=== PATIENT | male | born 1970 | race Caucasian/White ===

== ENCOUNTER 2023-01-02 03:11 | Inpatient (IN) | payer OTHER ==
[2023-01-02] MEDS ORDERED: DIAZEPAM 10 MG/2 ML INJ SYRINGE ONE ×2 (03:41→04:25)
[2023-01-02] MEDS ORDERED: NA CHLORIDE 0.9% 1,000 ML ONE (03:42)
[2023-01-02 04:03] LABS: MCV 93.7 fL (80-100); MPV 7.9 fL (7.6-11.3)
[2023-01-02 04:16] LABS: ALT/SGPT 88 U/L (16-61); AST/SGOT 101 U/L (15-37); Albumin 3.7 g/dL (3.4-5.0); Alkaline Phosphatase 78 U/L (45-117); Bicarbonate 22 mEq/L (21-32); Bilirubin Direct 0.4 mg/dL (0-0.2); Bilirubin Total 1.2 mg/dL (0.2-1.0); Glomerular Filtration Rate 110 ml/min (=/>90); Glucose Level 114 mg/dL (74-106); Magnesium 2.2 mg/dL (1.6-2.4); NT PRO-BNP 17 pg/mL (<125); Potassium 3.5 mEq/L (3.5-5.1); Protein, Total 8.1 g/dL (6.4-8.2); Sodium Level 131 mEq/L (136-145); Troponin High Sensitivity 3.9 pg/mL (<58.9)
[2023-01-02 04:18] LABS: BUN Blood Urea Nitrogen < 3 mg/dL (7-18)
[2023-01-02] MEDS ORDERED: ONDANSETRON 4 MG/2 ML VIAL ONE ×2 (05:37→08:28)
[2023-01-02] MEDS ORDERED: LORazepam 2 MG/ML VIAL ONE ×3 (05:37→10:28)
--- NOTE | 2023-01-02 05:49 | P.HP ---
Certification for Inpatient Patient admitted to: Observation With expected LOS: <2 Midnights Patient will require the following post-hospital care: None Practitioner: I am a practitioner with admitting privileges, knowledge of patient current condition, hospital course, and medical plan of care. Services: Services provided to patient in accordance with Admission requirements found in Title 42 Section 412.3 of the Code of Federal Regulations Patient History Date of Service: 01/03/23 Reason for admission: Benzo Withdrawal, Chest Pain History of Present Illness: Patient is a 52 year old male with past medical history of anxiety and alcohol abuse who presented to the emergency department with complaints of chest pain, anxiety, shaking, nausea, headache, tingling in extremities. he states that he has been out of his clonnazepam for 5 days now. Workup was negative from a cardiac stand point. Labs significant for sodium 131, chloride 96, tbili 1.2, AST 101, ALT 88, serum alcohol 139. In the emergency department, he received 5 mg IV diazepam x 2, 1L fluid, zofran, and 1 mg ativan. ED provider wishes to admit patient for further management. Allergies paroxetine [From Paxil] Adverse Reaction (Verified 01/02/23 08:18) Itching sertraline [From Zoloft] Adverse Reaction (Verified 01/02/23 08:18) Itching Home Medications: clonazePAM [Clonazepam] 1 mg PO BID 01/02/23 - Past Medical/Surgical History Diabetic: No -: Anxiety -: Alcohol Abuse Past Surgical History: Patient denies surgical history Psychosocial/ Personal History: Patient is . - Family History Family History: Reviewed- Non-Contributory - Social History Smoking Status: Current some day smoker (chewing tobacco) Alcohol use: Yes CD- Drugs: No Caffeine use: Yes Place of Residence: Home Review of Systems General: Other (shaking, tinging) Cardiovascular: Chest Pain Gastrointestinal: Nausea Physical Examination - Vital Signs Temperature: 98.7 F Blood Pressure: 137/84 Pulse: 73 Respirations: 18 Pulse Ox (%): 96 - Physical Exam General: Alert, In no apparent distress HEENT: Atraumatic, PERRLA, Sclerae nonicteric Neck: Supple, 2+ carotid pulse no bruit Respiratory: Clear to auscultation bilaterally, Normal air movement Cardiovascular: Regular rate/rhythm, Normal S1 S2 Gastrointestinal: Normal bowel sounds, No tenderness Musculoskeletal: No tenderness Integumentary: No rashes Neurological: Normal speech, Normal affect - Studies Laboratory Data (last 24 hrs) 01/02/23 03:45: WBC 7.60, Hgb 15.3, Hct 45.0, Plt Count 188 01/02/23 03:45: Sodium 131 L, Potassium 3.5, BUN < 3 L, Creatinine 0.71, Glucose 114 H, Magnesium 2.2, Total Bilirubin 1.2 H, AST 101 H, ALT 88 H, Alkaline Phosphatase 78 Assessment and Plan - Problems (Diagnosis) (1) Chest pain Current Visit: Yes Status: Acute Qualifiers: Chest pain type: unspecified Qualified Code(s): R07.9 - Chest pain, unspecified (2) Benzodiazepine withdrawal Current Visit: Yes Status: Acute Qualifiers: Complication of substance-induced condition: uncomplicated Qualified Code(s): F13.930 - Sedative, hypnotic or anxiolytic use, unspecified with withdrawal, uncomplicated (3) Alcohol abuse Current Visit: Yes Status: Chronic - Plan Patient is admitted for further management of chest pain & benzodiazapine withdrawal. Trend serial cardiac enzymes. Consult cardiology. He is a daily drinker and currently has elevated serum alcohol. CIWA protocol in place. IV hydration. Antiemetics as needed. Monitor and replete electrolytes per protocol. Discharge Plan: Home Plan to discharge in: 24 Hours - Advance Directives Does patient have a Living Will: No Does patient have a Durable POA for Healthcare: No - Code Status/Comfort Care Code Status Assessed: Yes Code Status: Full Code Physician Review: Patient Assessed, Agree with Above Assessment and Plan Critical Care: No Time Spent Managing Pts Care (In Minutes): 50
[2023-01-02 06:27] LABS: SARS-COV-2 RT PCR NEGATIVE (NEGATIVE)
[2023-01-02] MEDS ORDERED: ACETAMINOPHEN 500 MG TAB PO PRN (06:30)
[2023-01-02] MEDS: LORazepam 2 MG/ML VIAL IV PRN ×3 (08:00→13:37)
[2023-01-02] MEDS: ONDANSETRON 4 MG/2 ML VIAL IV PRN ×3 (08:00→20:16)
[2023-01-02 08:14] VITALS: BMI 30.7
--- NOTE | 2023-01-02 08:46 | ER ---
Nurse's Notes [facility] Name: Joe Campo Age: 52 yrs Sex: Male : 1970 Arrival Date: 01/02/2023 Time: 03:25 Bed 6 Private MD: Diagnosis: Underdosing of benzodiazepines, initial encounter-Withdrawal;Chest pain, unspecified;Nausea Presentation: 01/02 03:26 Chief complaint: EMS states: "We were called out for chest pain and tingling of left vc1 arm and left leg. He was standing out front when we arrived and said he has been out of clonazepam for about 5 days.". Coronavirus screen: Vaccine status: Patient reports being unvaccinated. Client denies travel out of the [place] in the last 14 days. At this time, the client does not indicate any symptoms associated with coronavirus-19. Ebola Screen: Patient negative for fever greater than or equal to 101.5 degrees Fahrenheit, and additional compatible Ebola Virus Disease symptoms Patient denies exposure to infectious person. Patient denies travel to an Ebola-affected area in the 21 days before illness onset. No symptoms or risks identified at this time. Initial Sepsis Screen: Does the patient meet any 2 criteria? No. Patient's initial sepsis screen is negative. Does the patient have a suspected source of infection? No. Patient's initial sepsis screen is negative. Risk Assessment: Do you want to hurt yourself or someone else? Patient reports no desire to harm self or others. Onset of symptoms is unknown. 03:26 Method Of Arrival: EMS: [facility] vc1 03:26 Acuity: EMILY 3 vc1 Triage Assessment: 03:31 General: Appears in no apparent distress. uncomfortable, Behavior is cooperative, vc1 anxious, restless. Pain: Complains of pain in chest Pain does not radiate. Pain currently is 8 out of 10 on a pain scale. EENT: No deficits noted. No signs and/or symptoms were reported regarding the EENT system. Neuro: Kendrick Agitation-Sedation Scale (RASS): +1 Restless Level of Consciousness is awake, alert, obeys commands, Oriented to person, place, time, situation, Appropriate for age. Cardiovascular: Reports chest pain, lightheadedness, nausea, Chest pain is described as mild, quality is sharp. Respiratory: Airway is patent Respiratory effort is even, unlabored, Respiratory pattern is regular, symmetrical. GI: Reports nausea. : No deficits noted. No signs and/or symptoms were reported regarding the genitourinary system. Derm: No deficits noted. No signs and/or symptoms reported regarding the dermatologic system. Musculoskeletal: No deficits noted. No signs and/or symptoms reported regarding the musculoskeletal system. Historical: - Allergies: 03:29 Paxil; vc1 03:29 Zoloft; vc1 - Home Meds: 03:29 clonazepam 1 mg oral tablet 2 times per day [Active]; vc1 - PMHx: 03:29 Anxiety; vc1 - PSHx: 03:29 None; vc1 - Immunization history:: Client reports having NOT received the Covid vaccine. - Social history:: Smoking status: Patient reports use of chewing tobacco. - Family history:: not pertinent. - Hospitalizations: : No recent hospitalization is reported. Screenin:32 [facility] ED Fall Risk Assessment (Adult) History of falling in the last 3 months, vc1 including since admission No falls in past 3 months (0 pts) Confusion or Disorientation No (0 pts) Intoxicated or Sedated No (0 pts) Impaired Gait No (0 pts) Mobility Assist Device Used No (0 pt) Altered Elimination No (0 pt) Score/Fall Risk Level 0 - 2 = Low Risk Oriented to surroundings, Maintained a safe environment, Educated pt \\T\\ family on fall prevention, incl call for assistance when getting out of bed. Abuse screen: Denies threats or abuse. Nutritional screening: No deficits noted. Tuberculosis screening: No symptoms or risk factors identified. Assessment: 03:33 Pain: Pain began gradually, 4 hours ago. vc1 04:48 Reassessment: Patient and/or family updated on plan of care and expected duration. Pain vc1 level reassessed. Patient is alert, oriented x 3, equal unlabored respirations, skin warm/dry/pink. Patient states feeling better. Patient states symptoms have improved. 05:30 Reassessment: Patient and/or family updated on plan of care and expected duration. Pain ha1 level reassessed. Patient is alert, oriented x 3, equal unlabored respirations, skin warm/dry/pink. Patient states feeling better. Patient states symptoms have improved. Vital Signs: 03:26 BP 171 / 88; Pulse 85; Resp 15; Temp 98.7; Pulse Ox 100% ; Weight 99.79 kg; Height 5 vc1 ft. 11 in. ; Pain 8/10; 04:45 BP 148 / 78; Pulse 75; Resp 16; Pulse Ox 96% ; vc1 05:30 BP 137 / 84; Pulse 73; Resp 18 S; Pulse Ox 96% on R/A; ha1 03:26 Body Mass Index 30.68 (99.79 kg, 180.34 cm) vc1 03:26 Pain Scale: Adult vc1 ED Course: 03:25 Patient arrived in ED. es 03:26 Reynaldo Bermudez MD is Attending Physician. rn 03:26 EKG done, by door technician. reviewed by Reynaldo Bermudez MD. oe 03:29 Triage completed. vc1 03:32 Arm band placed on right wrist. vc1 03:33 Patient maintains SpO2 saturation greater than 95% on room air. vc1 03:33 Patient has correct armband on for positive identification. Bed in low position. Call vc1 light in reach. Side rails up X 1. Client placed on continuous cardiac and pulse oximetry monitoring. NIBP monitoring applied. 03:34 Nicki Pulido, BELLO is Primary Nurse. vc1 05:14 Gianni Alvarado is Hospitalizing Provider. rn 07:46 Primary Nurse role handed off by Nicki Pulido RN bp 07:46 Aleksandar Pierre, RN is Primary Nurse. bp 09:00 Chest Single View In Process Unspecified. EDMS 09:01 Head Brain Wo Cont In Process Unspecified. EDMS Administered Medications: 03:40 Drug: Diazepam IVP 5 mg Route: IVP; Site: right antecubital; vc1 03:42 Drug: NS 0.9% IV 1000 ml Route: IV; Rate: 1000 ml; Site: right antecubital; vc1 04:23 Drug: Diazepam IVP 5 mg Route: IVP; Site: right antecubital; ha1 05:30 Drug: Ondansetron IVP 4 mg Route: IVP; Site: right antecubital; ha1 05:34 Drug: Ativan IVP 1 mg Route: IVP; Site: right antecubital; ha1 Medication: 03:33 VIS not applicable for this client. vc1 Outcome: 05:15 Decision to Hospitalize by Provider. rn 13:24 Patient left the ED. bp Signatures: Dispatcher [employer] Darlene Richter Roman, MD MD rn Ines, Aleksandar Gonzalez RN RN Nicki Tidwell RN RN vc1 Loida Daniel, RN RN ha1
--- NOTE | 2023-01-02 08:46 | EDPHYS ---
Physician Documentation [facility] Name: Joe Campo Age: 52 yrs Sex: Male : 1970 Arrival Date: 01/02/2023 Time: 03:25 Bed 6 Private MD: ED Physician Reynaldo Bermudez HPI: 01/02 04:39 This 52 yrs old Male presents to ER via EMS with complaints of Chest Pain > rn 30 y/o, anxiety. 04:39 Pt reports out of clonazepam for 5 days, for last 2-3 days has been having chest pain, rn anxiety, shaking, nausea, tingling in hands and legs, + headache. Took "something from a friend" but didn't help. Has never stopped his clonazepam like this. Also daily drinker, but still drinking.. Onset: The symptoms/episode began/occurred 3 day(s) ago. Severity of symptoms: At their worst the symptoms were moderate in the emergency department the symptoms are unchanged. The patient has not experienced similar symptoms in the past. The patient has not recently seen a physician. Historical: - Allergies: 03:29 Paxil; vc1 03:29 Zoloft; vc1 - Home Meds: 03:29 clonazepam 1 mg oral tablet 2 times per day [Active]; vc1 - PMHx: 03:29 Anxiety; vc1 - PSHx: 03:29 None; vc1 - Immunization history:: Client reports having NOT received the Covid vaccine. - Social history:: Smoking status: Patient reports use of chewing tobacco. - Family history:: not pertinent. - Hospitalizations: : No recent hospitalization is reported. ROS: 04:39 Constitutional: Negative for fever, chills, and weight loss, Eyes: Negative for injury, rn pain, redness, and discharge, Cardiovascular: Negative for palpitations, and edema, Respiratory: Negative for shortness of breath, cough, wheezing, and pleuritic chest pain, Abdomen/GI: Negative for abdominal pain, diarrhea, and constipation, Back: Negative for injury and pain, MS/Extremity: Negative for injury and deformity, Skin: Negative for injury, rash, and discoloration, Neuro: Negative for seizure Exam: 04:39 Constitutional: This is a well developed, well nourished patient who is awake, alert, rn and in no acute distress. Head/Face: Normocephalic, atraumatic. Eyes: Pupils equal round and reactive to light, extra-ocular motions intact. ENT: dry MM Cardiovascular: Regular rate and rhythm. No pulse deficits. Respiratory: No increased work of breathing, no retractions or nasal flaring. Abdomen/GI: Soft, non-tender Skin: Warm, dry MS/ Extremity: Pulses equal, no cyanosis Neuro: Awake and alert, GCS 15, oriented to person, place, time, and situation. Cranial nerves II-XII grossly intact. Motor strength 4/5 in all extremities. Sensory grossly intact. Cerebellar exam normal. + coarse tremor bilateral arms/hands. 06:42 ECG was reviewed by the Attending Physician. rn Vital Signs: 03:26 BP 171 / 88; Pulse 85; Resp 15; Temp 98.7; Pulse Ox 100% ; Weight 99.79 kg; Height 5 vc1 ft. 11 in. ; Pain 8/10; 04:45 BP 148 / 78; Pulse 75; Resp 16; Pulse Ox 96% ; vc1 05:30 BP 137 / 84; Pulse 73; Resp 18 S; Pulse Ox 96% on R/A; ha1 03:26 Body Mass Index 30.68 (99.79 kg, 180.34 cm) vc1 03:26 Pain Scale: Adult vc1 MDM: 03:26 Patient medically screened. rn 05:12 Differential Diagnosis chest pain, CAD, NSTEMI, anxiety, ETOH withdrawal, Benzo rn withdrawal, dehydration. Data reviewed: vital signs, nurses notes, lab test result(s), EKG, radiologic studies, CT scan, plain films, and as a result, I will admit patient. Consideration of Admission/Observation Patient was admitted/placed on observation. Escalation of care including admission/observation considered. Management of patient was discussed with the following: Hospitalist: . Independent interpretation of the following test(s) in the Emergency Department EKG: See my EKG interpretation above X-Ray: My interpretation is CXR images neg for pneumothorax or lobar pneumonia per my interpretation. Counseling: I had a detailed discussion with the patient and/or guardian regarding: the historical points, exam findings, and any diagnostic results supporting the discharge/admit diagnosis, lab results, radiology results, the need for further work-up and treatment in the hospital. Response to treatment: the patient's symptoms have mildly improved after treatment, and as a result, I will admit patient. 01/02 03:26 Order name: Basic Metabolic Panel rn 01/02 03:26 Order name: CBC with Diff rn 01/02 03:26 Order name: LFT's rn 01/02 03:26 Order name: Magnesium rn 01/02 03:26 Order name: NT PRO-BNP rn 01/02 03:26 Order name: Troponin HS rn 01/02 03:26 Order name: ETOH Level rn 01/02 05:12 Order name: COVID-19/FLU A+B rn 01/02 08:27 Order name: CBC with Automated Diff EDMS 01/02 08:27 Order name: Alcohol Serum/Plasma EDMS 01/02 08:27 Order name: Basic Metabolic Panel EDMS 01/02 08:27 Order name: Liver (Hepatic) Function EDMS 01/02 08:27 Order name: Troponin High Sensitivity EDMS 01/02 08:27 Order name: NT PRO-BNP EDMS 01/02 08:27 Order name: Magnesium EDMS 01/02 08:28 Order name: COVID-19/FLU A+B EDMS 01/02 11:28 Order name: Creatine Phosphokinase; Complete Time: 02:28 EDMS 01/02 11:28 Order name: Lipid Profile; Complete Time: 02:28 EDMS 01/02 03:26 Order name: XRAY Chest (1 view) rn 01/02 03:27 Order name: CT Head Brain wo Cont rn 01/02 09:00 Order name: Chest Single View; Complete Time: 02:28 EDMS 01/02 09:00 Order name: Head Brain Wo Cont; Complete Time: 02:28 EDMS 01/02 03:26 Order name: EKG; Complete Time: 08:28 rn 01/02 03:26 Order name: Cardiac monitoring; Complete Time: 03:27 rn 01/02 03:26 Order name: EKG - Nurse/Tech; Complete Time: 03:27 rn 01/02 03:26 Order name: IV Saline Lock; Complete Time: 03:45 rn 01/02 03:26 Order name: Labs collected and sent; Complete Time: 03:45 rn 01/02 03:26 Order name: O2 Per Protocol; Complete Time: 03:34 rn 01/02 03:26 Order name: O2 Sat Monitoring; Complete Time: 03:34 rn EC:42 Rate is 80 beats/min. Rhythm is regular. QRS Ralph is Normal. GA interval is normal. QRS rn interval is normal. QT interval is normal. No Q waves. T waves are Normal. No ST changes noted. Clinical impression: NSR w/ Non-specific ST/T Changes. Interpreted by me. Reviewed by me. Administered Medications: 03:40 Drug: Diazepam IVP 5 mg Route: IVP; Site: right antecubital; vc1 03:42 Drug: NS 0.9% IV 1000 ml Route: IV; Rate: 1000 ml; Site: right antecubital; vc1 04:23 Drug: Diazepam IVP 5 mg Route: IVP; Site: right antecubital; ha1 05:30 Drug: Ondansetron IVP 4 mg Route: IVP; Site: right antecubital; ha1 05:34 Drug: Ativan IVP 1 mg Route: IVP; Site: right antecubital; ha1 Disposition Summary: 01/02/23 05:15 Hospitalization Ordered Hospitalization Status: Observation rn Provider: Gianni Alvarado rn Condition: Stable rn Problem: new rn Symptoms: have improved rn Bed/Room Type: Standard rn Location: Telemetry/MedSurg (observation)(01/02/23 11:52) dw Room Assignment: [facility](01/02/23 11:52) Diagnosis - Underdosing of benzodiazepines, initial encounter - Withdrawal rn - Chest pain, unspecified rn - Nausea rn Forms: - Medication Reconciliation Form rn - SBAR form rn Signatures: Dispatcher [employer] Deborah Diego RN RN Reynaldo Trevino MD MD rn Garcia, Cindy RN RN Nicki Pulido RN RN vc1 Loida Daniel, RN RN ha1 Toshia Domínguez PA-C PADevorah sb4 Corrections: (The following items were deleted from the chart) 06:08 05:15 Telemetry/MedSurg (observation) rn cg 06:08 05:15 rn cg 11:52 06:08 [facility] ER HOLD cg dw 11:52 06:08 ERHOLD- cg dw
[2023-01-02] MEDS ORDERED: ENOXAPARIN 40 MG/0.4 ML SQ ONE (10:17)
--- NOTE | 2023-01-02 12:13 | EKG ---
Test Date: 2023-01-02 Test Time: 03:19:40 Printmaker: RAFI MEASUREMENT RESULTS: Intervals: Rate: 80 MS: 170 QRSD: 80 QT: 400 QTc: 461 [place]: P: 37 MS: 170 QRS: 34 T: 67 INTERPRETIVE STATEMENTS: Normal sinus rhythm Nonspecific T wave abnormality Prolonged QT Compared to ECG 12/25/2005 20:17:11 T-wave abnormality now present Prolonged QT interval now present Electronically Signed On 01-02-23 12:12:36 CDT by Kavin Costa
[2023-01-02] MEDS: ENOXAPARIN 40 MG/0.4 ML SQ SCH (13:30)
[2023-01-02] MEDS ORDERED: LORazepam 2 MG/ML VIAL IV PRN ×2 (15:21)
[2023-01-02] MEDS ORDERED: HALOPERIDOL LACT 5 MG/ML INJ IM PRN (15:21)
[2023-01-02] MEDS ORDERED: FLUMAZENIL 0.1 MG/ML (5 mL VIAL) IV PRN (15:21)
--- NOTE | 2023-01-02 15:24 | P.PN ---
Date of Service: 01/02/23 Patient seen and examined. He is complaining of nausea and retching. He is also complaining of tremors. Noted to be tachycardic on the electronic device monitor. Patient is likely withdrawing from alcohol. Plan: Continue CIWA IV hydration Antiemetics as needed.
--- NOTE | 2023-01-02 16:13 | RAD REPORT ---
EXAM DESCRIPTION: CT - Head Brain Wo Cont - 01/02/2023 5:54 am CLINICAL HISTORY: The patient is 52 years old and is Male; LIGHTHEADED, NAUSEA TECHNIQUE: Axial computed tomography images of the head/brain without intravenous contrast. Sagitt al and coronal reformatted images were created and reviewed. This CT exam was performed using one o r more of the following dose reduction techniques: automated exposure control, adjustment of the mA and/or kV according to patient size, and/or use of iterative reconstruction technique. COMPARISON: No relevant prior studies available. FINDINGS: Brain: Unremarkable. No hemorrhage. No significant white matter disease. No edema. Ventricles: Unremarkable. No ventriculomegaly. Bones/joints: Unremarkable. No acute fracture. Soft tissues: Unremarkable. Sinuses: Unremarkable as visualized. Mastoid air cells: Unremarkable as visualized. No mastoid effusion. IMPRESSION: No acute intracranial abnormality. Electronically signed by: Osvaldo Carroll MD 01/02/2023 4:36 AM CDT Due to temporary technical issues with the PACS/Fluency reporting system, reports are being signed by the in house radiologists without review as a courtesy to insure prompt reporting. The interpreting radiologist is fully responsible for the content of the report.
[2023-01-02] MEDS: LORazepam 2 MG/ML VIAL IV SCH ×3 (16:19→23:45)
--- NOTE | 2023-01-02 16:27 | RAD REPORT ---
EXAM DESCRIPTION: RAD - Chest Single View - 01/02/2023 4:10 am CLINICAL HISTORY: The patient is 52 years old and is Male; CHEST PAIN TECHNIQUE: Frontal view of the chest. COMPARISON: No relevant prior studies available. FINDINGS: Lungs: Mildly prominent interstitial markings. Pleural space: Left hemidiaphragm is obscured which can be seen with left pleural effusion, as w ell as left lower lobe consolidation or atelectasis. Blunting of the left costophrenic angle which may indicate left pleural effusion. No pneumothorax. Heart: Unremarkable. Mediastinum: Unremarkable. Bones/joints: Unremarkable. IMPRESSION: 1. Mildly prominent interstitial markings. 2. Left hemidiaphragm is obscured which can be seen with left pleural effusion, as well as left low er lobe consolidation or atelectasis. 3. Blunting of the left costophrenic angle which may indicate left pleural effusion. Electronically signed by: Osvaldo Carroll MD 01/02/2023 4:22 AM CDT Due to temporary technical issues with the PACS/Fluency reporting system, reports are being signed by the in house radiologists without review as a courtesy to insure prompt reporting. The interpreting radiologist is fully responsible for the content of the report.
[2023-01-03] MEDS: ONDANSETRON 4 MG/2 ML VIAL IV PRN ×3 (03:32→20:33)
[2023-01-03] MEDS: LORazepam 2 MG/ML VIAL IV SCH ×5 (03:33→20:35)
[2023-01-03 05:59] LABS: Absolute Lymphocytes (CBC) 1.9 K/uL (0.7-4.9); Hematocrit 43.5 % (39.6-49.0); Lymphocytes % 21.5 % (15.3-44.8); MPV 7.9 fL (7.6-11.3); RBC Red Blood Cell Count 4.58 M/uL (4.33-5.43)
[2023-01-03 06:15] LABS: Magnesium 2.3 mg/dL (1.6-2.4); Phosphorus 3.2 mg/dL (2.5-4.9); Potassium 3.9 mEq/L (3.5-5.1)
[2023-01-03] MEDS: ENOXAPARIN 40 MG/0.4 ML SQ SCH (07:47)
[2023-01-03] MEDS: FOLIC ACID 1 MG, MULTIVITAMINS INJ 10 ML, THIAMINE HCL 100 MG in NA CHLORIDE 0.9% 1,000 ML IV SCH (08:38)
[2023-01-03] MEDS ORDERED: POTASSIUM CL SA 10 MEQ TAB PO ONE (09:00)
--- NOTE | 2023-01-03 13:35 | P.PN ---
Subjective Date of Service: 01/03/23 Chief Complaint: Benzo Withdrawal, Chest Pain Patient is complaining of intermittent nausea and vomiting. He also reports some jerking movement last night. No witnessed seizures. Physical Examination - Vital Signs Temperature: 97.7 F Blood Pressure: 140/85 Pulse: 79 Respirations: 18 Pulse Ox (%): 96 Assessment And Plan - Current Problems (Diagnosis) (1) Alcohol withdrawal syndrome Current Visit: Yes Status: Acute (2) Chest pain Current Visit: Yes Status: Acute Qualifiers: Chest pain type: unspecified Qualified Code(s): R07.9 - Chest pain, unspecified (3) Hyponatremia Current Visit: Yes Status: Acute - Plan Physical Exam General: Alert, In no apparent distress, obese. HEENT: Atraumatic, PERRLA, Sclerae nonicteric Neck: Supple, no elevated JVD. Respiratory: Clear to auscultation bilaterally, Normal air movement Cardiovascular: Regular rate/rhythm, Normal S1 S2 Gastrointestinal: Normal bowel sounds, No tenderness Musculoskeletal: No tenderness, no tremors Integumentary: No rashes Neurological: Normal speech, Normal affect, no focal motor deficit. Plan: Continue [facility] for alcohol withdrawal. Supportive measures, antiemetics. Neurochecks. IV thiamine and folic acid Troponin negative, no ACS. Sodium level improved. Monitor and optimize electrolytes.
[2023-01-04] MEDS: LORazepam 2 MG/ML VIAL IV SCH ×5 (00:16→12:09)
[2023-01-04] MEDS: LORazepam 2 MG/ML VIAL IV PRN ×4 (02:51→21:00)
[2023-01-04] MEDS: ONDANSETRON 4 MG/2 ML VIAL IV PRN ×3 (04:15→18:43)
[2023-01-04 04:34] LABS: Absolute Lymphocytes (CBC) 1.6 K/uL (0.7-4.9); Hematocrit 42.3 % (39.6-49.0); Lymphocytes % 17.1 % (15.3-44.8); MCV 94.9 fL (80-100); MPV 8.4 fL (7.6-11.3); RBC Red Blood Cell Count 4.46 M/uL (4.33-5.43)
[2023-01-04 04:46] LABS: Potassium 3.5 mEq/L (3.5-5.1)
[2023-01-04] MEDS: ENOXAPARIN 40 MG/0.4 ML SQ SCH (08:11)
[2023-01-04] MEDS ORDERED: POTASSIUM CL SA 10 MEQ TAB PO ONE (09:00)
[2023-01-04] MEDS: FOLIC ACID 1 MG, MULTIVITAMINS INJ 10 ML, THIAMINE HCL 100 MG in NA CHLORIDE 0.9% 1,000 ML IV SCH (09:09)
[2023-01-04 10:06] VITALS: O2SAT 98
--- NOTE | 2023-01-04 13:37 | P.PN ---
Subjective Date of Service: 01/04/23 Chief Complaint: Benzo Withdrawal, Chest Pain Patient is complaining of abdominal discomfort. No tremors today. He remain awake and alert and tolerating his diet. He denies any nausea or vomiting today. Physical Examination - Vital Signs Temperature: 97.7 F Blood Pressure: 142/93 Pulse: 107 Respirations: 16 Pulse Ox (%): 96 Assessment And Plan - Current Problems (Diagnosis) (1) Alcohol withdrawal syndrome Current Visit: Yes Status: Acute (2) Chest pain Current Visit: Yes Status: Acute Qualifiers: Chest pain type: unspecified Qualified Code(s): R07.9 - Chest pain, unspecified (3) Hyponatremia Current Visit: Yes Status: Acute - Plan Physical Exam General: Alert, In no apparent distress, obese. HEENT: Sclerae nonicteric Neck: Supple, no elevated JVD. Respiratory: Clear to auscultation bilaterally, Normal air movement Cardiovascular: Regular rate/rhythm, Normal S1 S2 Gastrointestinal: Normal bowel sounds, No tenderness Musculoskeletal: No tenderness, no tremors Integumentary: No rashes Neurological: Normal speech, no focal motor deficit. Plan: Taper Ativan for CIWA. Discontinue banana bag and start oral thiamine and folic acid Supportive measures, antiemetics. Neurochecks. Sodium level improved. Monitor and optimize electrolytes. Activity as tolerated Possible discharge in a.m.
[2023-01-04] MEDS ORDERED: LORazepam 2 MG/ML VIAL IV SCH (18:00)
[2023-01-04] MEDS: LORAZEPAM 1 MG TABLET PO PRN (18:43)
[2023-01-05] MEDS: LORAZEPAM 1 MG TABLET PO PRN (01:03)
[2023-01-05] MEDS: ONDANSETRON 4 MG/2 ML VIAL IV PRN (01:06)
[2023-01-05] MEDS: LORazepam 2 MG/ML VIAL IV PRN ×2 (04:37→08:23)
[2023-01-05 06:15] LABS: Albumin 3.5 g/dL (3.4-5.0); Bilirubin Total 1.7 mg/dL (0.2-1.0); Potassium 3.4 mEq/L (3.5-5.1); Protein, Total 7.4 g/dL (6.4-8.2)
[2023-01-05 08:19] VITALS: BP 133/68; TEMP 98.3
[2023-01-05] MEDS: ENOXAPARIN 40 MG/0.4 ML SQ SCH (08:23)
[2023-01-05] MEDS ORDERED: THIAMINE HCL 100 MG TABLET PO SCH (09:00)
[2023-01-05] MEDS ORDERED: POTASSIUM CL SA 10 MEQ TAB PO ONE (09:00)
[2023-01-05] MEDS ORDERED: FOLIC ACID 1 MG TABLET PO SCH (09:00)
--- NOTE | 2023-01-05 10:29 | P.DS ---
Admission Date: 01/03/23 Discharge Date: 01/05/23 Disposition: ROUTINE DISCHARGE Discharge Condition: FAIR Reason for Admission: Benzo Withdrawal, Chest Pain - Problems (1) Alcohol withdrawal syndrome Status: Acute (2) Chest pain Status: Acute Qualifiers: Chest pain type: unspecified Qualified Code(s): R07.9 - Chest pain, unspecified (3) Hyponatremia Status: Acute Brief History of Present Illness: Patient is a 52 year old male with past medical history of anxiety and alcohol abuse who presented to the emergency department with complaints of chest pain, anxiety, shaking, nausea, headache, tingling in extremities. He stated that he has been out of his clonnazepam for 5 days. Workup was negative from a cardiac stand point. Labs significant for sodium 131, chloride 96, tbili 1.2, AST 101, ALT 88, serum alcohol 139. In the emergency department, he received 5 mg IV diazepam x 2, 1L fluid, zofran, and 1 mg ativan. Patient admitted for further management. Hospital Course: Patient admitted to the medical floor. He was noted to be withdrawing from alcohol with nausea and vomiting and tremors. Patient started on CIWA for alcohol withdrawal, banana bag and other supportive measures. Patient clinicall y improved. Tremors resolved, other symptoms resolved. Patient tolerated diet and he is ambulatory. Overall patient has clinically improved and deemed stable for discharge. He is prescribed Ativan taper over 2 days, thiamine and multivitamins. He is informed to establish care with a PCP and has been advised to quit drinking alcohol. Vital Signs/Physical Exam: Temp Pulse Resp BP Pulse Ox 98.3 F 80 16 133/68 97 01/05/23 08:00 01/05/23 08:00 01/05/23 08:00 01/05/23 08:00 01/05/23 08:00 General: Alert, In no apparent distress, Oriented x3 HEENT: Mucous membr. moist/pink Neck: Supple, JVD not distended Respiratory: Clear to auscultation bilaterally, Normal air movement Cardiovascular: No edema, Regular rate/rhythm, Normal S1 S2 Gastrointestinal: Normal bowel sounds, Soft and benign, Non-distended, No tenderness Musculoskeletal: No swelling Integumentary: No rashes, No erythema, No cyanosis Neurological: Normal strength at 5/5 x4 extr Laboratory Data at Discharge: WBC 9.20 thou/uL (4.3-10.9) 01/04/23 04:11 Hgb 14.5 g/dL (13.6-17.9) 01/04/23 04:11 Hct 42.3 % (39.6-49.0) 01/04/23 04:11 Plt Count 137 thou/uL (152-406) L 01/04/23 04:11 Sodium 134 mEq/L (136-145) L 01/05/23 05:44 Potassium 3.4 mEq/L (3.5-5.1) L 01/05/23 05:44 BUN 10 mg/dL (7-18) 01/05/23 05:44 Creatinine 0.80 mg/dL (0.70-1.30) 01/05/23 05:44 Glucose 104 mg/dL (74-106) 01/05/23 05:44 Phosphorus 3.2 mg/dL (2.5-4.9) 01/03/23 05:42 Magnesium 2.3 mg/dL (1.6-2.4) 01/03/23 05:42 Total Bilirubin 1.7 mg/dL (0.2-1.0) H 01/05/23 05:44 AST 61 U/L (15-37) H 01/05/23 05:44 ALT 60 U/L (16-61) 01/05/23 05:44 Alkaline Phosphatase 70 U/L (45-117) 01/05/23 05:44 Triglycerides 56 mg/dL (<150) 01/02/23 10:40 Cholesterol 197 mg/dL (<200) 01/02/23 10:40 HDL Cholesterol 97 mg/dL (40-60) H 01/02/23 10:40 Cholesterol/HDL Ratio 2.03 01/02/23 10:40 Home Medications: Folic Acid 1 mg PO DAILY #30 tab 01/05/23 LORazepam [Ativan*] 1 mg PO Q6H #3 tab 01/05/23 Multivitamin [Daily Kulwant] 1 each PO DAILY #30 tab 01/05/23 Thiamine HCl [Vitamin B-1*] 100 mg PO DAILY #30 tab 01/05/23 New Medications: LORazepam [Ativan*] 1 mg PO Q6H #3 tab Multivitamin [Daily Kulwant] 1 each PO DAILY #30 tab Folic Acid 1 mg PO DAILY #30 tab Thiamine HCl [Vitamin B-1*] 100 mg PO DAILY #30 tab Diet: AHA Activity: Fall precautions Followup: NONE,NONE [Primary Care Provider] - 1-2 Weeks Time spent managing pt's care (in minutes): 34
== END 2023-01-05 11:55 | disposition home or self-care (01) | DRG 897 ==
LOC: ER 03:11 → OBSVTOIN 05:45 → INTOOBSV 05:45 → ERHOLD 05:45 → 2ND 12:46 → OBSVTOIN 01-03 13:28
PROVIDERS: ADMIT Internal Medicine; ATTEND Internal Medicine
DX: F10.139 Alcohol abuse with withdrawal, unspecified (principal); E87.1 Hypo-osmolality and hyponatremia; F41.9 Anxiety disorder, unspecified; F13.930 Sedative, hypnotic or anxiolytic use, unspecified with withdrawal, uncomplicated; F17.220 Nicotine dependence, chewing tobacco, uncomplicated; T42.4X6A Underdosing of benzodiazepines, initial encounter; Z88.8 Allergy status to other drugs, medicaments and biological substances; Z79.899 Other long term (current) drug therapy; Z28.310 Unvaccinated for COVID-19; Z20.822 Contact with and (suspected) exposure to COVID-19; Y90.6 Blood alcohol level of 120-199 mg/100 ml
CPT/HCPCS: 0240U; 36415; 70450; 71045; 80048; 80053; 80061; 80076; 82550; 83735; 83880; 84100; 84484; 85025; 93005; 96374; 96375; 99284; G0378; G0480; J1650; J2405; J3360; J3411; J7030

== ENCOUNTER 2023-02-12 19:28 | Emergency (ER) | payer OTHER ==
--- OUTSIDE RECORDS SUMMARY | 2023-02-12 19:31 | XMS REPORT | Continuity of Care Document ---
:1970 Demographics Address [address] [address] Email Address DECLINE Preferred Language Luxembourger Marital Status Unknown Amish Affiliation Unknown Race Unknown Ethnic Group Unknown Author Organization [facility] t Address [address] [facility] [address] [place] [address] Care Team Providers Name Role Phone ELAYNE CONNOR Attending Clinician Unavailable JESSICA FRAUSTO Attending Clinician Unavailable CHIP TARANGO Attending Clinician Unavailable Jessica Frausto Attending Clinician Miguel A Parada Attending Clinician Payers Payer Name Policy Type Policy Number Effective Date Expiration Date S marcie [employer]ET[employer] [facility] 9 [id number] 2023 00:00:00 SILVER: O CHAIR 94 ON STAND Problems Condition Condition Condition Status Onset Resolution Last Treating Co mments Source Name Details Category Date Date Treatment Clinician Date Backache Backache Problem Active 2013-102022-06-28 Memoria (finding) (finding) 1-24 04:31:16 l Active 00:00: [place] 09/05/2014 00 Problem 06/28/2022 Data migrated from [email or web address] on 03/14/15. [facility] Heat Heat Problem Active 2013-102022-06-28 Memor ia exhaustion exhaustion 0-14 04:31:16 l (disorder) (disorder) 00:00: He rmann Active 00 07/26/2014 Problem 06/28/2022 Data migrated from [email or web address] on 03/14/15. [facility] Low back Low back Problem Active 2013-102022-06-28 [facility] pain pain 0-14 04:31:16 l (disorder) (disorder) 00:00: He rmann Active 00 07/26/2014 Problem 06/28/2022 Data migrated from [email or web address] on 03/14/15. [facility] Group Neck pain Neck pain Problem Active 2013-102022-06-28 Memoria (finding) (finding) 0-14 04:31:16 l Active 00:00: [place] 07/26/2014 00 Problem 06/28/2022 Data migrated from [employer] on 03/14/15. Medical Group Long-term Long-term Problem Active 2022-06-28 [facility]oria drug drug 02-04 04:31:16 l therapy therapy 00:00: [place] (procedure (procedure 00 ) ) Active 02/04/2014 Problem 06/28/2022 Data migrated from [employer] on 03/14/15. [facility] Group Anxiety Anxiety Problem Active 2012-102022-06-28 Me moria disorder disorder 04:31:16 l (disorder) (disorder) 00:00: He rmann Active 00 10/12/2013 Problem 06/28/2022 Data migrated from [employer] on 03/14/15. Medical Group Gastroesop Gastroeso Problem Active 2012-102022-06-28 Memoria hageal phageal 04:31:16 l reflux reflux 00:00: [place] disease disease 00 (disorder) (disorder) Active 10/12/2013 Problem 06/28/2022 Data migrated from [employer] on 03/14/15. Medical Group Agoraphobi Problem Active 2022-06-28 M emoria a Agoraphobi 04:31:16 l (disorder) a Mor n (disorder) Active Problem 06/28/2022 [facility] Body mass Body mass Problem Active 2022-06-28 Memoria index index 04:31:16 l index index [place] 25-29 - 25-29 - overweight overweight (finding) (finding) Active Problem 06/28/2022 Medical Group Lumbago Lumbago Problem Active 2022-06-28 Me moria with with 04:31:16 l sciatica sciatica Mor n (disorder) (disorder) Active Problem 06/28/2022 Medical Group Panic Panic Problem Active 2022-06-28 Memor ia attack attack 04:31:16 l (finding) (finding) Larisa rody Active Problem 06/28/2022 Medical Group Snuff user Snuff Problem Active 2022-06-28 Memoria (finding) user 04:31:16 l (finding) [place] Active Problem 06/28/2022 [facility] Group Lactose Lactose Problem Active 2022-06-28 Me moria intoleranc intoleranc 04:31:16 l Mayank (disorder) (disorder) Active Problem 06/28/2022 Medical Group History of Past Illness Condition Condition Condition Status Onset Resolution Last Treating Co mments Source Name Details Category Date Date Treatment Clinician Date Agoraphobi Agoraphob Problem 2022-06-28 2022-06-28 Memelsa islas, 06-25 04:31:16 04:31:16 l unspecifie unspecifie 17:00: Yahir hernandez d d 00 06/25/2022 06/28/2022 Medical Group Other long Other Problem 2020-102021-10-05 2021-10-05 Memoria term long term 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 care 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 12-03 02:38:57 02:38:57 l (current) (current) 16:54: Herm rody drug drug 00 therapy therapy 10/02/2021 10/05/2021 Medical Group Allergies, Adverse Reactions, Alerts Allergy Allergy Status Severity Reaction(s) Onset Inactive Treating Comm ents Source Name Type Date Date Clinician sertrali sertrali Active 2012-10 Memori a ne<sup>1 ne<sup>1 2-31 l </sup> </sup> 06:00: [place] 00 PARoxeti PARoxeti Active 2012-10 Memori a ne<sup>2 ne<sup>2 2-31 l </sup> </sup> 06:00: [place] Social History Smoking Status Start Date Stop Date Source Social History [facility] Medications Ordered Filled Start Stop Current Ordering Indication Dosage Frequency Signature Comments Components Source Medication Medication Date Date Medication? Clinician (SIG) Name Name clonazePAM Yes See Memoria 1 mg oral 9-13 Instructio l tablet 20:23: ns, PRN [place] 00 Anxiety, 1-1.5 tab PO BID, # 70 tab, 4 Refill(s), [facility], Pharmacy: [facility] #[id number], 175.26, cm, 10/02/21 10:29:00 [employer], Height, 102.33, kg, 06/25/22 14:52:00 CDT, Weight clonazePAM Yes See Memoria 1 mg oral 6-13 Instructio l tablet 17:10: ns, PRN [place] 00 Anxiety, 1-1.5 tab PO BID, # 70 tab, 2 Refill(s), [facility], Pharmacy: [id number], 175.26, cm, 10/02/21 10:29:00 [employer], Height, 99.659, kg, 10/02/21 10:29:00 [employer]GER [employer], Weight clonazePAM 2020-1 Yes See Memoria 1 mg oral 2-21 Instructio l tablet 16:56: ns, PRN [place] 00 Anxiety, 1-1.5 tab PO BID, # 70 tab, 5 Refill(s), [facility], Pharmacy: [facility], 175.26, cm, 10/02/21 10:29:00 [employer]GER [employer], Height, 99.659, kg, 10/02/21 10:29:00 [employer]GER [employer], Weight clonazePAM 1 Yes 1 mg = 1 Mem oria 1 mg oral 1-22 tab, PO, l tablet 19:20: BID, PRN [place] 00 Anxiety, Needs FU appt, # 60 tab, 0 Refill(s), [facility], Pharmacy: [facility], 175.26, cm, 03/05/21 15:43:00 CDT, Height, 95.625, kg, 03/05/21 15:43:00 CDT, Weight clonazePAM 2020-0 Yes 1 mg = 1 Mem oria 1 mg oral 5-24 tab, PO, l tablet 20:53: BID, PRN [place] 00 Anxiety, # 60 tab, 5 Refill(s), [facility], Pharmacy: [facility], 175.26, cm, 03/05/21 15:43:00 CDT, Height, 95.625, kg, 03/05/21 15:43:00 CDT, Weight clonazePAM 2020-0 Yes 1 mg = 1 Mem oria 1 mg oral 1-25 tab, PO, l tablet 18:55: BID, PRN [place] 00 Anxiety, # 10 tab, 0 Refill(s), [facility], Pharmacy: [facility], 175.26, cm, 09/13/20 8:50:00 P[employer]ENGER [employer] INS[employer], Height, 94.602, kg, 09/13/20 8:50:00 P[employer]ENGER [employer]PECT[employer], Weight clonazePAM 2019- Yes 1 mg = 1 Mem oria 1 mg oral 2-02 tab, PO, l tablet 15:40: BID, PRN [place] 00 Anxiety, Needs Appt., # 60 tab, 5 Refill(s), [facility], Pharmacy: [facility], 175.26, cm, 09/13/20 8:50:00 P[employer]ENGER [employer], Height, 94.602, kg, 09/13/20 8:50:00 P[employer]ENGER [employer], Weight clonazePAM 2019-1 Yes 1 mg = 1 Mem oria 1 mg oral 1-20 tab, PO, l tablet 15:38: BID, PRN [place] 00 Anxiety, Needs Appt., # 28 tab, 0 Refill(s), [facility], Pharmacy: [facility], 176.53, cm, 04/14/19 9:12:00 CDT, Height, 97.727, kg, 04/14/19 9:12:00 CDT, Weight clonazePAM 2019-1 Yes 1 mg = 1 Mem oria 1 mg oral 0-19 tab, PO, l tablet 17:04: BID, PRN [place] 00 Anxiety, Needs Appt., # 60 tab, 5 Refill(s), [facility], Pharmacy: [facility], 176.53, cm, 04/14/19 9:12:00 CDT, Height, 97.727, kg, 04/14/19 9:12:00 CDT, Weight clonazePAM 2019-0 Yes 1 mg = 1 Mem oria 1 mg oral 4-06 tab, PO, l tablet 13:28: BID, PRN [place] 00 Anxiety, Needs Appt., # 60 tab, 5 Refill(s), [facility], Pharmacy: [facility] clonazePAM 2020-0 Yes 1 mg = 1 Mem oria 1 mg oral 3-12 tab, PO, l tablet 21:33: BID, PRN [place] 00 Anxiety, Needs Appt., # 30 tab, 0 Refill(s), [facility], Pharmacy: [facility] clonazePAM 2020-0 Yes 1 mg = 1 Mem oria 1 mg oral 1-26 tab, PO, l tablet 04:51: BID, PRN [place] 00 Anxiety, # 60 tab, 0 Refill(s), [facility], Pharmacy: [facility] clonazePAM 2019-0 Yes 1 mg = 1 Mem oria 1 mg oral 7-03 tab, PO, l tablet 14:36: BID, PRN [place] 55 Anxiety, # 60 tab, 5 Refill(s), [facility] clonazePAM 2019-0 Yes 1 mg = 1 Mem oria 1 mg oral 6-24 tab, PO, l tablet 21:00: BID, # 28 Mor n 00 tab, 0 Refill(s) clonazePAM 2019-0 Yes 1 mg = 1 Mem oria 1 mg oral 5-16 tab, PO, l tablet 17:28: BID, # 60 Mor n 00 tab, 0 Refill(s) clonazePAM 2019-0 Yes 1 mg = 1 Mem oria 1 mg oral 4-12 tab, PO, l tablet 15:27: BID, # 60 Mor n 00 tab, 0 Refill(s) clonazePAM 2017-1 No 1 mg = 1 Mem oria 1 mg oral 0-23 tab, PO, l tablet 19:08: BID, # 60 Mor n 33 tab, 5 Refill(s) clonazePAM 2018-0 Yes 1 mg = 1 Mem oria 1 mg oral 4-13 tab, PO, l tablet 20:34: BID, # 60 Mor n 26 tab, 5 Refill(s) clonazePAM 2018-0 No 1 mg = 1 Mem oria 1 mg oral 1-24 tab, PO, l tablet 22:21: BID, # 60 Mor n 59 tab, 1 Refill(s) Vital Signs Vital Name Observation Time Observation Value Comments Source Temperature Oral (F) 2022-06-25 19:52:00 99.3 F [facility] [place] Heart Rate 2022-06-25 19:52:00 [facility] [place] Systolic (mm Hg) 2022-06-25 19:52:00 Jordy rial [place] Diastolic (mm Hg) 2022-06-25 19:52:00 Mem orial [place] Weight 2022-06-25 19:52:00 [facility] [place] Temperature Oral (F) 2021-10-02 16:29:00 98.3 F [facility] [place] Heart Rate 2021-10-02 16:29:00 [facility] [place] Systolic (mm Hg) 2021-10-02 16:29:00 Jordy rial [place] Diastolic (mm Hg) 2021-10-02 16:29:00 Mem orial [place] Height 2021-10-02 16:29:00 175.26 cm [facility] [place] Weight 2021-10-02 16:29:00 [facility] [place] BMI Calculated 2021-10-02 16:29:00 Memori al [place] Height 2021-03-05 20:43:00 175.26 cm [facility] [place] Weight 2021-03-05 20:43:00 [facility] [place] BMI Calculated 2021-03-05 20:43:00 Memori al [place] Systolic (mm Hg) 2021-03-05 20:43:00 Jordy rial [place] Diastolic (mm Hg) 2021-03-05 20:43:00 Mem orial [place] Heart Rate 2021-03-05 20:43:00 [facility] [place] Temperature Oral (F) 2021-03-05 20:43:00 98.2 F [facility] [place] Systolic (mm Hg) 2020-09-13 15:38:00 Jordy rial [place] Diastolic (mm Hg) 2020-09-13 15:38:00 Mem orial [place] Systolic (mm Hg) 2020-09-13 14:50:00 Jordy rial [place] Diastolic (mm Hg) 2020-09-13 14:50:00 Mem orial [place] Heart Rate 2020-09-13 14:50:00 [facility] [place] Temperature Oral (F) 2020-09-13 14:50:00 98.8 F [facility] [place] Height 2020-09-13 14:50:00 175.26 cm [facility] [place] Weight 2020-09-13 14:50:00 [facility] [place] BMI Calculated 2020-09-13 14:50:00 Memori al [place] BMI Calculated 2019-04-14 14:12:00 Memori al [place] Weight 2019-04-14 14:12:00 [facility] [place] Height 2019-04-14 14:12:00 176.53 cm [facility] [place] Systolic (mm Hg) 2019-04-14 14:12:00 Jordy rial [place] Diastolic (mm Hg) 2019-04-14 14:12:00 Mem orial [place] Temperature Oral (F) 2019-04-14 14:12:00 98.6 F [facility] [place] Heart Rate 2019-04-14 14:12:00 [facility] [place] Weight 2018-08-04 18:39:00 [facility] [place] BMI Calculated 2018-08-04 18:39:00 Memori al [place] Height 2018-08-04 18:39:00 177.8 cm [facility] [place] Heart Rate 2018-08-04 18:39:00 [facility] [place] Temperature Oral (F) 2018-08-04 18:39:00 98.0 F [facility] [place] Systolic (mm Hg) 2018-08-04 18:39:00 Jordy rial [place] Diastolic (mm Hg) 2018-08-04 18:39:00 Mem orial [place] Weight 2018-01-23 20:20:00 [facility] [place] Systolic (mm Hg) 2018-01-23 20:20:00 Jordy rial [place] Diastolic (mm Hg) 2018-01-23 20:20:00 Mem orial [place] Temperature Oral (F) 2018-01-23 20:20:00 99.1 F [facility] [place] Heart Rate 2018-01-23 20:20:00 [facility] [place] Procedures This patient has no known procedures. Encounters Start End Encounter Admission Attending Care Care Encounter Source Date/Time Date/Time Type Type Clinicians Facility Department ID 2023-02-13 2023-02-13 Outpatient JAYLYN CONNOR [id number] Jaylyn 16:30:00 16:30:00 ELAYNE brown 2022-12-26 2022-12-26 Outpatient JAYLYN FRAUSTO [id number] Jaylyn 16:30:00 16:30:00 JESSICA brown 2022-11-29 2022-11-29 Outpatient JAYLYN TARANGO [id number] Jaylyn 14:45:00 14:45:00 CHIP brown 2022-06-25 2022-06-26 [place] [id number] Memoria 20:00:00 04:59:59 r Primary 18 l Care Talatrody [place] 2022-06-25 2022-06-25 Outpatient TIAGO Frausto [facility] [id number] 15:00:00 23:59:59 Jerecia 18 Aries 2022-06-25 2022-06-25 Outpatient GWENDOLYN SNOW [id number] Memoria 15:00:00 15:00:00 18 l [place] 2022-04-02 2022-04-02 [place] [id number] Memoria 14:00:00 14:00:00 Pre-Reg r Primary 17 l Saloni Mariscal 2022-04-02 2022-04-02 Outpatient MHIE MHIE [id number] Memoria 09:00:00 09:00:00 17 heidi Gilliland 2022-04-02 2022-04-02 Outpatient Scar, MG MHMG [id number] 09:00:00 09:00:00 Jerecia 17 Aries 2022-03-25 2022-03-27 Phone nullFlavo MHMG [id number] Memoria 16:35:43 04:59:59 Message r Primary 22 l Saloni Mariscal 2022-03-25 2022-03-26 Outpatient MHMG MHMG [id number] 11:35:43 23:59:59 22 2022-01-11 2022-01-13 Phone nullFlavo MHMG [id number] Memoria 21:34:58 04:59:59 Message r Primary 21 l Saloni Mariscal 2022-01-11 2022-01-12 Outpatient MHMG MHMG [id number] 16:34:58 23:59:59 21 2021-10-02 2021-10-03 Outpatient nullFlavo MHMG [id number] Memoria 17:00:00 05:59:59 r Primary 16 l Saloni Mariscal 2021-10-02 2021-10-02 Outpatient Frausto, MG MH[facility] [id number] 11:00:00 23:59:59 Jerecia 16 Aries 2021-10-02 2021-10-02 Outpatient MHIE MHIE [id number] Memoria 11:00:00 11:00:00 16 heidi Gilliland 2021-09-26 2021-09-26 Ambulatory nullFlavo MHMG [id number] Memoria 16:00:00 16:00:00 Pre-Reg r Primary 15 l Saloni Mariscal 2021-09-26 2021-09-26 Outpatient MHIE MHIE [id number] Memoria 10:00:00 10:00:00 15 heidi Gilliland 2021-09-26 2021-09-26 Outpatient Scar, MG MHMG [id number] 10:00:00 10:00:00 Jerecia 15 Aries 2021-09-03 2021-09-05 Phone nullFlavo MHMG [id number] Memoria 16:06:11 05:59:59 Message r Primary 20 l [facility] 2021-09-03 2021-09-04 Outpatient MHMG MHMG [id number] 10:06:11 23:59:59 20 2021-03-05 2021-03-06 Outpatient nullFlavo MHMG [id number] Memoria 20:40:00 04:59:59 r Primary [facility] l [facility] 2021-03-05 2021-03-05 Outpatient Frausto, MHMG MHMG [id number] 15:40:00 23:59:59 Jerecia 14 Aries 2021-03-05 2021-03-05 Outpatient MHIE MHIE [id number] Memoria 15:40:00 15:40:00 14 heidi Gilliland 2020-11-06 2020-11-08 Phone nullFlavo MHMG [id number] Memoria 14:54:07 05:59:59 Message r Primary 19 l [facility] 2020-11-06 2020-11-07 Outpatient MHMG MHMG [id number] 08:54:07 23:59:59 19 2020-10-09 2020-10-11 Phone nullFlavo MHMG [id number] Memoria 20:11:47 05:59:59 Message r Primary 18 l [facility] 2020-10-09 2020-10-10 Outpatient MHMG MHMG [id number] 14:11:47 23:59:59 18 2020-09-13 2020-09-14 Outpatient nullFlavo MHMG [id number] Memoria 15:20:00 05:59:59 r Primary 13 [facility] 2020-09-13 2020-09-13 Outpatient Scar, MHMG MHMG [id number] 09:20:00 23:59:59 Jerecia 13 Aries 2020-09-13 2020-09-13 Outpatient MHIE MHIE [id number] Memoria 09:20:00 09:20:00 13 heidi PeresTalat 2020-09-01 2020-09-03 Phone nullFlavo MHMG [id number] Memoria 15:11:57 05:59:59 Message r Primary 17 l [facility] 2020-09-01 2020-09-02 Outpatient MHMG MHMG [id number] 09:11:57 23:59:59 17 2020-09-01 2020-09-01 Ambulatory nullFlavo MHMG [id number] Memoria 15:40:00 15:40:00 Pre-Reg r Primary 12 [facility] 2020-09-01 2020-09-01 Outpatient MHIE MHIE [id number] Memoria 09:40:00 09:40:00 12 [facility] 2020-09-01 2020-09-01 Outpatient Scar, MHMG MHMG [id number] 09:40:00 09:40:00 Jerecia 12 [facility] 2020-07-28 2020-07-30 Phone nullFlavo MHMG [id number] Memoria 14:56:23 04:59:59 Message r Primary 16 [facility] 2020-07-28 2020-07-29 Outpatient MHMG MHMG [id number] 09:56:23 23:59:59 16 2020-01-17 2020-01-18 Outpatient nullFlavo MHMG [id number] Memoria 13:00:00 04:59:59 r Primary 11 [facility] 2020-01-17 2020-01-17 Outpatient Scar, MHMG MHMG [id number] 08:00:00 23:59:59 Jerecia Shahnaz [facility] 2020-01-17 2020-01-17 Outpatient MHIE MHIE [id number] Memoria 08:00:00 08:00:00 11 [facility] 2019-12-23 2019-12-25 Phone nullFlavo MHMG [id number] Memoria 16:05:37 04:59:59 Message r Primary 15 [facility] 2019-12-23 2019-12-24 Outpatient MHMG MHMG [id number] 11:05:37 23:59:59 15 2019-11-05 2019-11-07 Phone nullFlavo MHMG [id number] Memoria 17:17:28 05:59:59 Message r Primary 14 [facility] 2019-11-05 2019-11-06 Outpatient MHMG MHMG [id number] 11:17:28 23:59:59 14 2019-04-14 2019-04-15 Outpatient nullFlavo MHMG [id number] Memoria 14:00:00 04:59:59 r Primary 10 l [facility] Talatrody [place] 2019-04-14 2019-04-14 Outpatient Scar MHMG MHMG [id number] 09:00:00 23:59:59 Jerromana Chris 2019-04-14 2019-04-14 Outpatient MHIE MHIE [id number] Memoria 09:00:00 09:00:00 10 heidi Gilliland 2019-04-05 2019-04-07 Phone nullFlavo MHMG [id number] Memoria 20:31:36 04:59:59 Message r Primary 13 l Saloni [place] 2019-04-05 2019-04-06 Outpatient MHMG MHMG [id number] 15:31:36 23:59:59 13 2019-02-25 2019-02-27 Phone nullFlavo MHMG [id number] Memoria 14:35:19 04:59:59 Message r Primary 12 l Saloni [facility] 2019-02-25 2019-02-26 Outpatient MHMG MHMG [id number] 09:35:19 23:59:59 12 2019-01-22 2019-01-24 Phone nullFlavo MHMG [id number] Memoria 14:32:00 04:59:59 Message r Primary 11 heidi Guallpa [place] 2019-01-22 2019-01-23 Outpatient MHMG MHMG [id number] 09:32:00 23:59:59 11 2018-08-04 2018-08-05 [place] [id number] Memoria 19:20:00 04:59:59 r Primary 09 l Saloni [place] 2018-08-04 2018-08-04 Outpatient Karma MG MG [id number] 14:20:00 23:59:59 Art L 09 2018-08-04 2018-08-04 Outpatient MHIE MHIE [id number] Memoria 14:20:00 14:20:00 09 heidi Gilliland 2018-01-23 2018-01-24 Outpatient nullFlavo MHMG [id number] Memoria 20:10:00 04:59:59 r Primary 08 heidi [facility] 2018-01-22 2018-01-24 Phone nullFlavo MHMG [id number] Memoria 15:01:00 04:59:59 Message r Primary 10 heidi Guallpa [facility] 2018-01-23 2018-01-23 Outpatient JAJA ParadaMG MHMG [id number] 15:10:00 23:59:59 Art L 08 2018-01-22 2018-01-23 Outpatient MHMG MHMG [id number] 10:01:00 23:59:59 10 2018-01-23 2018-01-23 Ambulatory nullFlavo MHMG [id number] Memoria 20:10:00 20:10:00 Pre-Reg r Primary 07 l [facility] [place] 2018-01-23 2018-01-23 Outpatient MHIE MHIE [id number] Memoria 15:10:00 15:10:00 08 heidi Gilliland 2018-01-23 2018-01-23 Outpatient MHIE MHIE [id number] Memoria 15:10:00 15:10:00 07 heidi Gilliland 2018-01-23 2018-01-23 Outpatient AJJA ParadaMG MHMG [id number] 15:10:00 15:10:00 Art L 07 2017-11-05 2017-11-07 Phone nullFlavo MHMG [id number] Memoria 22:15:00 05:59:59 Message r Primary 09 l [facility] [place] 2017-11-05 2017-11-06 Outpatient MHMG MHMG [id number] 16:15:00 23:59:59 09 2017-07-08 2017-07-08 Outpatient MHIE MHIE [id number] Memoria 13:30:00 13:30:00 06 heidi Talat 2016-12-06 2016-12-06 Outpatient MHIE MHIE [id number] Memoria 13:30:00 13:30:00 05 heidi Gilliland 2016-12-04 2016-12-04 Outpatient MHIE MHIE [id number] Memoria 09:00:00 09:00:00 04 heidi Gilliland 2016-06-03 2016-06-03 Outpatient MHIE MHIE [id number] Memoria 15:15:00 15:15:00 02 heidi Gilliland 2016-03-08 2016-03-08 Outpatient MHIE MHIE [id number] Memoria 14:45:00 14:45:00 03 heidi Gilliland 2015-12-22 2015-12-22 Outpatient MHIE MHIE [id number] Memoria 10:45:00 10:45:00 01 heidi Gilliland 2015-12-21 2015-12-21 Outpatient [facility] [id number] 08:[facility]:00 08:00:00 00 heidi Gilliland Results This patient has no known results.
[2023-02-12 20:20] LABS: Absolute Lymphocytes (CBC) 2.2 K/uL (0.7-4.9); Hematocrit 43.3 % (39.6-49.0); MCV 95.1 fL (80-100); MPV 7.2 fL (7.6-11.3); RBC Red Blood Cell Count 4.56 M/uL (4.33-5.43)
[2023-02-12] MEDS ORDERED: ASPIRIN 81 MG CHEWABLE TABLET ONE (20:20)
[2023-02-12] MEDS ORDERED: NA CHLORIDE 0.9% 1,000 ML ONE (20:21)
[2023-02-12] MEDS ORDERED: LORazepam 2 MG/ML VIAL ONE (20:21)
[2023-02-12 20:33] LABS: Protime INR 1.03
[2023-02-12 20:44] LABS: ALT/SGPT 70 U/L (16-61); AST/SGOT 78 U/L (15-37); Albumin 3.5 g/dL (3.4-5.0); Alkaline Phosphatase 92 U/L (45-117); Bicarbonate 24 mEq/L (21-32); Bilirubin Direct 0.3 mg/dL (0-0.2); Bilirubin Total 0.7 mg/dL (0.2-1.0); Glomerular Filtration Rate 115 ml/min (=/>90); Glucose Level 106 mg/dL (74-106); Magnesium 2.1 mg/dL (1.6-2.4); NT PRO-BNP 20 pg/mL (<125); Potassium 3.4 mEq/L (3.5-5.1); Protein, Total 7.8 g/dL (6.4-8.2); Sodium Level 131 mEq/L (136-145); Troponin High Sensitivity 3.3 pg/mL (<58.9)
[2023-02-12 20:53] LABS: BUN Blood Urea Nitrogen < 3 mg/dL (7-18)
[2023-02-12 20:55] LABS: Barbiturates NEGATIVE (NEGATIVE); Benzodiazepines NEGATIVE (NEGATIVE); Cocaine NEGATIVE (NEGATIVE); METHAMPHETAM NEGATIVE (NEGATIVE); Methadone NEGATIVE (NEGATIVE); Opiates NEGATIVE (NEGATIVE); Phencyclidine NEGATIVE (NEGATIVE); THC Cannibis POSITIVE (NEGATIVE)
[2023-02-12] MEDS ORDERED: POTASSIUM 25 MEQ EFFERV TAB ONE (21:29)
[2023-02-12] MEDS ORDERED: MORPHINE 2 MG/ML SYR ONE (21:29)
--- NOTE | 2023-02-12 21:35 | RAD REPORT ---
EXAM DESCRIPTION: Stacey Single View02/12/2023 9:24 pm CLINICAL HISTORY: Chest pain COMPARISON: December 2022 FINDINGS: The lungs appear clear of acute infiltrate. The heart is normal size IMPRESSION: No acute abnormalities displayed
[2023-02-12] MEDS ORDERED: ACETAMINOPHEN 500 MG TAB ONE (23:32)
--- NOTE | 2023-02-13 01:25 | EDPHYS ---
Physician Documentation [facility] Name: Joe Campo Age: 52 yrs Sex: Male : 1970 Arrival Date: 02/12/2023 Time: 19:28 Bed 3 Private MD: ED Physician Reilly Salguero HPI: 02/12 20:10 This 52 yrs old Male presents to ER via EMS with complaints of Chest Pain, Anxiety. cp 20:10 The patient or guardian reports chest pain that is located primarily in the anterior cp chest wall, bilaterally. 20:10 Onset: today. Associated signs and symptoms: Pertinent positives: anxiety, Pertinent cp negatives: abdominal pain, cough, shortness of breath, syncope, fever. The chest pain is described as a pressure. Patient reports history of anxiety and running out of prescribed benzodiazepine last month. Admits to drinking several beers today. Historical: - Allergies: 19:41 Paxil; aa9 19:41 Zoloft; aa9 - Home Meds: 19:41 clonazepam 1 mg Oral tablet 2 times per day [Active]; aa9 - PMHx: 19:41 Anxiety; aa9 - Immunization history:: Client reports having NOT received the Covid vaccine. - Social history:: Smoking status: Patient denies any tobacco usage or history of. ROS: 20:15 Constitutional: Negative for body aches, chills, fever, poor PO intake. cp 20:15 Eyes: Negative for injury, pain, redness, and discharge. cp 20:15 ENT: Negative for drainage from ear(s), ear pain, sore throat, difficulty swallowing, difficulty handling secretions. 20:15 Cardiovascular: Positive for chest pain, Negative for edema, palpitations. 20:15 Respiratory: Negative for cough, shortness of breath, wheezing. 20:15 Abdomen/GI: Negative for abdominal pain, nausea, vomiting, and diarrhea. 20:15 Neuro: Negative for altered mental status, dizziness, headache, tingling, weakness. 20:15 Psych: Positive for anxiety. 20:15 All other systems are negative. Exam: 20:20 Constitutional: The patient appears in no acute distress, alert, awake, cp non-diaphoretic, non-toxic, well developed, well nourished, anxious. 20:20 Head/Face: Normocephalic, atraumatic. cp 20:20 Eyes: Periorbital structures: appear normal, Conjunctiva: normal, no exudate, no injection, Sclera: no appreciated abnormality, Lids and lashes: appear normal, bilaterally. 20:20 ENT: External ear(s): are unremarkable, Nose: is normal, Mouth: Lips: moist, Oral mucosa: moist, Posterior pharynx: is normal, airway is patent, no erythema, no exudate. 20:20 Neck: ROM/movement: is normal, is supple, without pain, no range of motions limitations. 20:20 Chest/axilla: Inspection: normal. 20:20 Cardiovascular: Rate: normal, Rhythm: regular, Edema: is not appreciated, JVD: is not appreciated. 20:20 Respiratory: the patient does not display signs of respiratory distress, Respirations: normal, no use of accessory muscles, no retractions, labored breathing, is not present, Breath sounds: are clear throughout, no decreased breath sounds, no stridor, no wheezing. 20:20 Abdomen/GI: Inspection: abdomen appears normal, Palpation: abdomen is soft and non-tender, in all quadrants. 20:20 Back: pain, is absent, ROM is normal. 20:20 Neuro: Orientation: to person, place \T\ time. Mentation: is normal, Cerebellar function: is grossly normal, Motor: moves all fours, strength is normal, Sensation: is normal. 20:55 ECG was reviewed by the Attending Physician. cp Vital Signs: 19:39 BP 129 / 89; Pulse 80; Resp 18; Temp 98.5(O); Pulse Ox 95% on R/A; Weight 99.79 kg (R); aa9 Height 5 ft. 11 in. (R); 21:30 BP 122 / 78; Pulse 71; Resp 16; Pulse Ox 97% on R/A; aa9 22:30 BP 116 / 77; Pulse 72; Resp 16; Pulse Ox 91% on R/A; jb4 23:30 BP 117 / 78; Pulse 80; Resp 17; Pulse Ox 92% on R/A; jb4 02/13 00:30 BP 116 / 78; Pulse 86; Resp 12; Pulse Ox 93% on R/A; jb4 01:15 BP 126 / 89; Pulse 95; Resp 14; Pulse Ox 93% on R/A; jb4 02/12 19:39 Body Mass Index 30.68 (99.79 kg, 180.34 cm) aa9 MDM: 02/12 19:58 Patient medically screened. cp 02/13 01:23 Data reviewed: vital signs, nurses notes, lab test result(s), EKG, radiologic studies, cp plain films. 01:23 Consideration of Admission/Observation Escalation of care including cp admission/observation considered. I considered the following discharge prescriptions or medication management in the emergency department Medications were administered in the Emergency Department. See MAR. Counseling: I had a detailed discussion with the patient and/or guardian regarding: the historical points, exam findings, and any diagnostic results supporting the discharge/admit diagnosis, lab results, radiology results, the need for outpatient follow up, a station engineer. Response to treatment: the patient's symptoms have markedly improved after treatment, and as a result, I will discharge patient. Special discussion: Based on the patient's history, exam, and Dx evaluation, there is no indication for emergent intervention or inpatient Tx. It is understood by the patient/guardian that if the Sx's persist or worsen they need to return immediately for re-evaluation. 02/12 20:04 Order name: Basic Metabolic Panel; Complete Time: 21:12 cp 02/12 21:12 Interpretation: Normal except: NA 131; K 3.4; BUN < 3; CRE 0.62. cp / 20:04 Order name: CBC with Diff; Complete Time: 21:12 cp / 21:14 Interpretation: Reviewed. cp 02/12 20:04 Order name: LFT's; Complete Time: 21:12 cp 02/12 21:14 Interpretation: Normal except: AST 78; ALT 70; BILID 0.3; GLOB 4.3; A/G 0.8. cp / 20:04 Order name: Magnesium; Complete Time: 21:12 cp / 20:04 Order name: NT PRO-BNP; Complete Time: 21:12 cp / 20:04 Order name: PT-INR; Complete Time: 21:12 cp / 20:04 Order name: Troponin HS; Complete Time: 21:12 cp / 21:14 Interpretation: Troponin HS 3.3; Reviewed. cp / 20:04 Order name: ETOH Level; Complete Time: 21:18 cp 02/12 20:04 Order name: UDS; Complete Time: 21:12 cp 02/12 21:14 Interpretation: Normal except: THC POSITIVE. cp 02/12 23:51 Order name: Troponin High Sensitivity; Complete Time: 00:59 cp 02/13 00:59 Interpretation: Reviewed. cp 02/12 20:04 Order name: XRAY Chest (1 view); Complete Time: 00:59 cp 02/12 20:04 Order name: EKG; Complete Time: 20:05 cp 02/12 20:04 Order name: Cardiac monitoring; Complete Time: 20:12 cp 02/12 20:04 Order name: EKG - Nurse/Tech; Complete Time: 20:53 cp 02/12 20:04 Order name: IV Saline Lock; Complete Time: 20:12 cp 02/12 20:04 Order name: Labs collected and sent; Complete Time: 20:12 cp 02/12 20:04 Order name: O2 Per Protocol; Complete Time: 20:12 cp 02/12 20:04 Order name: O2 Sat Monitoring; Complete Time: 20:12 cp EC/03 20:55 Rate is 72 beats/min. Rhythm is regular. AK interval is normal. QRS interval is normal. cp QT interval is normal. T waves are Inverted in leads I, aVL. Interpreted by me. Reviewed by me. Administered Medications: 20:31 Drug: NS 0.9% IV 1000 ml Route: IV; Rate: 100 ml/hr; Site: left hand; aa9 20:32 Drug: Aspirin PO Chewable Tablet 324 mg Route: PO; 02/13 00:11 Follow up: Response: No adverse reaction 02/12 20:32 Drug: Ativan IVP 0.5 mg Route: IVP; Site: left hand; 02/13 00:11 Follow up: Response: No adverse reaction; RASS: Alert and Calm (0) 02/12 21:26 Drug: morphine IVP or IV 2 mg Route: IVP; Infused Over: 4 mins; Site: left hand; 02/13 00:11 Follow up: Response: No adverse reaction 9 02/12 21:27 Drug: Potassium PO Effervescent Tablet 25 mEq Route: PO; 02/13 00:11 Follow up: Response: No adverse reaction 9 02/12 23:39 Drug: Acetaminophen PO 1000 mg Route: PO; aa9 02/13 00:11 Follow up: Response: No adverse reaction 01:43 Drug: Librium - chlordiazePOXIDE PO 50 mg Route: PO; jb4 Disposition Summary: 02/13/23 01:24 Discharge Ordered Location: Home cp Problem: new cp Symptoms: have improved cp Condition: Stable cp Diagnosis - Chest pain, unspecified cp - Alcohol use, unspecified cp Followup: cp - With: Kavin Costa MD - When: 2 - 3 days - Reason: chest pain Followup: cp - With: Private Physician - When: 1 - 2 days - Reason: anxiety, alcohol use Discharge Instructions: - Discharge Summary Sheet cp - Nonspecific Chest Pain, Adult cp - Alcohol Use Disorder cp - Aspirin and Your Heart cp - Managing Anxiety, Adult cp Forms: - Medication Reconciliation Form cp - Thank You Letter cp - Antibiotic Education cp - Prescription Opioid Use cp Prescriptions: - chlordiazepoxide HCl 25 mg Oral capsule - take 1 capsule by ORAL route every 6 hours As needed; 20 capsule; Refills: 0, cp Product Selection Permitted - Zofran 4 mg Oral Tablet - take 1 tablet by ORAL route every 12 hours As needed; 20 tablet; Refills: 0, cp Product Selection Permitted Signatures: Dispatcher [employer] EDReilly Alvarado PA PA cp Bryson, James, RN RN jb4 Maryellen Navarrete, RN RN aa9
--- NOTE | 2023-02-13 01:25 | ER ---
Nurse's Notes [facility] Name: Joe Campo Age: 52 yrs Sex: Male : 1970 Arrival Date: 02/12/2023 Time: 19:28 Bed 3 Private MD: Diagnosis: Chest pain, unspecified;Alcohol use, unspecified Presentation: 02/12 19:39 Chief complaint: EMS states: 52 M presents with chest pain, N/V, he states he has not aa9 had clonazepam 1 mg since February 05, he feels dehydrated. he has drank 6-7 16 oz beers today. Coronavirus screen: Vaccine status: Patient reports being unvaccinated. Ebola Screen: No symptoms or risks identified at this time. Initial Sepsis Screen: Does the patient meet any 2 criteria? Yes Does the patient have a suspected source of infection? No. Patient's initial sepsis screen is negative. Risk Assessment: Do you want to hurt yourself or someone else? Patient reports no desire to harm self or others. Onset of symptoms was February 12, 2023. Care prior to arrival: Medication(s) given: ASA, 81 mg, x 4, zofran 4 mg, fentanyl 50 mg. Care prior to arrival: IV initiated. 22 GA, in the left antecubital area. 19:39 Method Of Arrival: EMS: [facility] aa9 19:39 Acuity: EMILY 2 aa9 Triage Assessment: 19:42 General: Appears uncomfortable, obese, unkempt, Behavior is cooperative, anxious, aa9 Smells of alcohol. Pain: Complains of pain in chest Pain currently is 7 out of 10 on a pain scale. Noted to be resistant to movement. Neuro: Level of Consciousness is awake, alert, obeys commands, Oriented to person, place, time, situation. Neuro: Moves all extremities. Speech is normal, Reports numbness in mirza legs. Cardiovascular: Patient's skin is warm and dry. Respiratory: Airway is patent Respiratory effort is even, unlabored. GI: Abdomen is obese, Reports nausea, vomiting. : No signs and/or symptoms were reported regarding the genitourinary system. Derm: Skin is intact, is healthy with good turgor. Historical: - Allergies: 19:41 Paxil; aa9 19:41 Zoloft; aa9 - Home Meds: 19:41 clonazepam 1 mg Oral tablet 2 times per day [Active]; aa9 - PMHx: 19:41 Anxiety; aa9 - Immunization history:: Client reports having NOT received the Covid vaccine. - Social history:: Smoking status: Patient denies any tobacco usage or history of. Screenin/04 01:54 [facility] ED Fall Risk Assessment (Adult) History of falling in the last 3 months, jb4 including since admission No falls in past 3 months (0 pts) Confusion or Disorientation No (0 pts) Score/Fall Risk Level 0 - 2 = Low Risk Oriented to surroundings, Maintained a safe environment. Abuse screen: Denies threats or abuse. Nutritional screening: No deficits noted. Tuberculosis screening: No symptoms or risk factors identified. Assessment: 02/12 20:30 Reassessment: Patient appears in no apparent distress at this time. pt able to stand to aa9 use urinal independently. 21:04 Reassessment: Patient appears in no apparent distress at this time. Patient and/or aa9 family updated on plan of care and expected duration. Pain level reassessed. Patient is alert, oriented x 3, equal unlabored respirations, skin warm/dry/pink. 23:20 Reassessment: Patient appears in no apparent distress at this time. c/o 6/10 headache, aa9 notified provider. 02/13 01:25 Reassessment: Attempted to Ambulate pt, unable to ambulate at this time. Provider mac notified, no new orders at this time. 01:35 Reassessment: Pt now ambulating with steady gait. jb4 Vital Signs: 02/12 19:39 BP 129 / 89; Pulse 80; Resp 18; Temp 98.5(O); Pulse Ox 95% on R/A; Weight 99.79 kg (R); aa9 Height 5 ft. 11 in. (R); 21:30 BP 122 / 78; Pulse 71; Resp 16; Pulse Ox 97% on R/A; aa9 22:30 BP 116 / 77; Pulse 72; Resp 16; Pulse Ox 91% on R/A; jb4 23:30 BP 117 / 78; Pulse 80; Resp 17; Pulse Ox 92% on R/A; jb4 02/13 00:30 BP 116 / 78; Pulse 86; Resp 12; Pulse Ox 93% on R/A; jb4 01:15 BP 126 / 89; Pulse 95; Resp 14; Pulse Ox 93% on R/A; jb4 02/12 19:39 Body Mass Index 30.68 (99.79 kg, 180.34 cm) aa9 ED Course: 02/12 19:38 Patient arrived in ED. aa9 19:41 Triage completed. aa9 19:43 Arm band placed on. aa9 19:43 Patient has correct armband on for positive identification. Bed in low position. Call aa9 light in reach. Side rails up X2. Client placed on continuous cardiac and pulse oximetry monitoring. NIBP monitoring applied. 19:53 Reilly Ram PA is PHCP. cp 19:53 Reilly Salguero MD is Attending Physician. cp 20:11 Maryellen Navarrete, BELLO is Primary Nurse. aa9 20:12 Basic Metabolic Panel Sent. aa9 20:12 CBC with Diff Sent. aa9 20:12 LFT's Sent. aa9 20:12 Magnesium Sent. aa9 20:12 NT PRO-BNP Sent. aa9 20:12 PT-INR Sent. aa9 20:12 Troponin HS Sent. aa9 20:32 UDS Sent. aa9 20:32 ETOH Level Sent. aa9 20:32 Maintain EMS IV. Dressing intact. Good blood return noted. Site clean \T\ dry. Gauge \T\ aa 9 site: 22 G R Wrist. 21:04 Assisted with urinal. aa9 21:26 XRAY Chest (1 view) In Process Unspecified. EDMS 02/13 00:11 Troponin High Sensitivity Sent. aa9 01:23 Kavin Costa MD is Referral Physician. cp 01:54 No provider procedures requiring assistance completed. IV discontinued, intact, jb4 bleeding controlled, No redness/swelling at site. Pressure dressing applied. Administered Medications: 02/12 20:31 Drug: NS 0.9% IV 1000 ml Route: IV; Rate: 100 ml/hr; Site: left hand; aa9 20:32 Drug: Aspirin PO Chewable Tablet 324 mg Route: PO; aa9 02/13 00:11 Follow up: Response: No adverse reaction aa9 02/12 20:32 Drug: Ativan IVP 0.5 mg Route: IVP; Site: left hand; aa9 02/13 00:11 Follow up: Response: No adverse reaction; RASS: Alert and Calm (0) 9 02/12 21:26 Drug: morphine IVP or IV 2 mg Route: IVP; Infused Over: 4 mins; Site: left hand; 4 02/13 00:11 Follow up: Response: No adverse reaction 02/12 21:27 Drug: Potassium PO Effervescent Tablet 25 mEq Route: PO; jb4 02/13 00:11 Follow up: Response: No adverse reaction 9 02/12 23:39 Drug: Acetaminophen PO 1000 mg Route: PO; 9 02/13 00:11 Follow up: Response: No adverse reaction aa9 01:43 Drug: Librium - chlordiazePOXIDE PO 50 mg Route: PO; jb4 Medication: 01:35 VIS not applicable for this client. jb4 Output: 02/12 20:32 Urine: 500ml (Voided); Total: 500ml. aa9 Outcome: 02/13 01:24 Discharge ordered by MD. olu 01:35 Discharged to home via wheelchair. jb4 01:35 Condition: stable 01:35 Discharge instructions given to patient, Instructed on discharge instructions, follow up and referral plans. medication usage, Demonstrated understanding of instructions, follow-up care, medications, Prescriptions given X 2. 01:56 Patient left the ED. jb4 Signatures: Dispatcher [employer] EDMS Reilly Ram PA PA cp Bryson, James, RN RN jb4 Maryellen Navarrete RN RN aa9 Corrections: (The following items were deleted from the chart) 01:56 01:35 Discharge instructions given to patient, Instructed on discharge instructions, jb4 follow up and referral plans. medication usage, Demonstrated understanding of instructions, follow-up care, medications, Prescriptions given X 1, jb4
[2023-02-13] MEDS ORDERED: chlordiazePOXIDE HCl 25 MG CAP ONE (01:48)
[2023-02-13 02:26] VITALS: TEMP 98.5
[2023-02-13 02:30] VITALS: O2SAT 93
[2023-02-13 02:32] VITALS: BP 126/89
--- NOTE | 2023-02-13 07:50 | EKG ---
Test Date: 2023-02-12 Test Time: 20:47:40 Balance Wheel Motion Inspector: RAFI MEASUREMENT RESULTS: Intervals: Rate: 72 ID: [id number] QRSD: 86 QT: 386 QTc: 422 [place]: P: 136 ID: [id number] QRS: -3 T: 134 INTERPRETIVE STATEMENTS: Unusual P axis, possible ectopic atrial rhythm Low voltage QRS ST & T wave abnormality, consider lateral ischemia Abnormal ECG Compared to ECG 01/02/2023 03:19:40 Low QRS voltage now present ST (T wave) deviation now present Possible ischemia now present Sinus rhythm no longer present T-wave abnormality no longer present Prolonged QT interval no longer present Electronically Signed On 02-13-23 07:49:35 CDT by Bruce Márquez
== END 2023-02-13 01:56 | disposition home or self-care (01) ==
LOC: ER 19:28
DX: R07.89 Other chest pain (principal); F10.90 Alcohol use, unspecified, uncomplicated; F41.9 Anxiety disorder, unspecified; Z88.8 Allergy status to other drugs, medicaments and biological substances
CPT/HCPCS: 93005; 85025; 80048; 36415; 83735; 85610; 80076; 84484 ×2; 83880; 80307; 71045; 96375; 96374; 99284; J2270; J7030; G0480

== ENCOUNTER 2023-05-12 20:10 | Emergency (ER) | payer OTHER ==
--- OUTSIDE RECORDS SUMMARY | 2023-05-12 20:14 | XMS REPORT | Continuity of Care Document ---
:1970 Demographics Address [address] [address] Email Address Preferred Language Martiniquais Marital Status Unknown Baptism Affiliation Unknown Race Unknown Additional Race(s) Unavailable Ethnic Group Unknown Author Organization 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 Heat Heat Problem Active 2013-102022-06-28 Memor ia exhaustion exhaustion 0-14 04:31:16 l (disorder) (disorder) 00:00: He rmann Active 00 07/26/2014 Problem 06/28/2022 Data migrated from [employer] on 03/14/15[facility] Low back Low back Problem Active 2013-102022-06-28 Memoria pain pain 0-14 04:31:16 l (disorder) (disorder) 00:00: He rmann Active 00 07/26/2014 Problem 06/28/2022 Data migrated from [employer] on 03/14/15[facility] Neck pain Neck pain Problem Active 2014-1 2022-06-28 Memoria (finding) (finding) 0-14 04:31:16 l Active 00:00: Talat 07/26/2014 00 Problem 06/28/2022 Data migrated from [employer] on 03/14/15. [facility] Long-term Long-term Problem Active 2022-06-28 Memoria drug drug 02-04 04:31:16 l therapy therapy 00:00: Talat (procedure (procedure 00 ) ) Active 02/04/2014 Problem 06/28/2022 Data migrated from [employer] on 03/14/15. [facility] Anxiety Anxiety Problem Active 2012-102022-06-28 Me moria disorder disorder 04:31:16 l (disorder) (disorder) 00:00: He rmann Active 00 10/12/2013 Problem 06/28/2022 Data migrated from [employer] on 03/14/15. [facility] Gastroesop Gastroeso Problem Active 2012-102022-06-28 Memoria hageal phageal 04:31:16 l reflux reflux 00:00: Talat disease disease 00 (disorder) (disorder) Active 10/12/2013 Problem 06/28/2022 Data migrated from [employer] on 03/14/15. [facility] Agoraphobi Agoraphob Problem Active 2022-06-28 Memoria a ia 04:31:16 l (disorder) (disorder) Yahir viridianaann Active Problem 06/28/2022 [facility] Body mass Body mass Problem Active [...] attack attack 04:31:16 l (finding) (finding) Larisa fine Active Problem 06/28/2022 [facility] Snuff user Snuff Problem Active 2022-06-28 M emoria (finding) user 04:31:16 l (finding) Talat Active Problem 06/28/2022 [facility] Lactose Lactose Problem Active 2022-06-28 Me moria intoleranc intoleranc 04:31:16 l Mayank (disorder) (disorder) Active Problem 06/28/2022 [facility] History of Past Illness Condition Condition Condition Status Onset Resolution Last Treating Co mments Source Name Details Category Date Date Treatment Clinician Date Agoraphobi Agoraphob Problem 2021-0 2022-06-28 2022-06-28 elsa Glover, 06-25 04:31:16 04:31:16 l unspecifie unspecifie 17:00: He david brown d 00 06/25/2022 2 [facility] Other long Other Problem 2020-102021-10-05 2021-10-05 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 12-03 02:38:57 02:38:57 l (current) (current) 16:54: Herm rody drug drug 00 therapy therapy 10/02/2021 1 [facility] Allergies, Adverse Reactions, Alerts Allergy Allergy Status Severity Reaction(s) Onset Inactive Treating Comm ents Source Name Type Date Date Clinician sertrali sertrali Active 2012-10 Memori a ne<sup>1 ne<sup>1 2-31 l </sup> </sup> 06:00: Talat 00 PARoxeti PARoxeti Active 2012-10 Memori a ne<sup>2 ne<sup>2 2-31 l </sup> </sup> 06:00: Talat 00 Paroxeti Propensi Active Other 2012-10 Jelani De La O ne ty to 2-31 reaction( Seybold Mesylate adverse 00:00: s): - reaction 00 ItchingDa Exter na s ta l migrated from [employer] on 02/09/15. Originall y documente d as PAXIL.Jn a migrated from [employer] on 02/09/15. Originall y documente d as PAXIL. Sertrali Propensi Active 2012-10 Other Jaylyn ne ty to 2-31 reaction( Seybold adverse 00:00: s): - reaction 00 ItchingDa Exter na s ta l migrated from [employer] on 02/09/15. Originall y documente d as ZOLOFT.Da ta migrated from [employer] on 02/09/15. Originall y documente d as ZOLOFT. Social History Social Habit Start Date Stop Date Quantity Comments Source Gender identity Jaylyn landry - External Sexual orientation Jaylyn Isbell - External Alcohol intake 2023-02-19 2023-02-19 Ex-drinker Jaylyn Masters bold 00:00:00 00:00:00 (finding) - External History of Social 2023-02-19 2023-02-19 Jaylyn Isbell function 00:00:00 00:00:00 - External Tobacco use and 2023-02-19 2023-02-19 Smokeless tobacco Uzair Isbell exposure 00:00:00 00:00:00 non-user - External Sex [birth year] At [birth year] Jaylyn landry 00:00:00 00:00:00 - External Smoking Status Start Date Stop Date Source Social History [facility] Medications Ordered Filled Start Stop Current Ordering Indication Dosage Frequency Signature Comments Components Source Medication Medication Date Date Medication? 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, Height, 102.33, kg, 06/25/22 14:52:00 CDT, Weight clonazePAM Yes See Memoria 1 mg oral 9-13 Instructio l tablet 20:23: ns, PRN Wallace 00 Anxiety, 1-1.5 tab PO BID, # 70 tab, 4 Refill(s), [facility], Pharmacy: [id number], 175.26, cm, 10/02/21 10:29:00 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, Height, 102.33, kg, 06/25/22 14:52:00 CDT, Weight clonazePAM 2022-0 Yes See Memoria 1 mg oral 9-13 Instructio l tablet 20:23: ns, PRN Wallace 00 Anxiety, 1-1.5 tab PO BID, # 70 tab, 4 Refill(s), [facility], Pharmacy: [id number], 175.26, cm, 10/02/21 10:29:00 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, Height, 102.33, kg, 06/25/22 14:52:00 CDT, Weight clonazePAM 2022-0 Yes See Memoria 1 mg oral 9-13 Instructio l tablet 20:23: ns, PRN Wallace 00 Anxiety, 1-1.5 tab PO BID, # 70 tab, 4 Refill(s), [facility], Pharmacy: [id number], 175.26, cm, 10/02/21 10:29:00 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, Height, 102.33, kg, 06/25/22 14:52:00 CDT, Weight clonazePAM 2022-0 Yes See Memoria 1 mg oral 9-13 Instructio l tablet 20:23: ns, PRN Talat 00 Anxiety, 1-1.5 tab PO BID, # 70 tab, 4 Refill(s), [facility], Pharmacy: [id number], 175.26, cm, 10/02/21 10:29:00 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, Height, 102.33, kg, 06/25/22 14:52:00 CDT, Weight clonazePAM 2022-0 Yes See Memoria 1 mg oral 6-13 Instructio l tablet 17:10: ns, PRN Wallace 00 Anxiety, 1-1.5 tab PO BID, # 70 tab, 2 Refill(s), [facility], Pharmacy: [id number], 175.26, cm, 10/02/21 10:29:00 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, Height, 99.659, kg, 10/02/21 10:29:00 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, Weight clonazePAM 2022-0 Yes See Memoria 1 mg oral 6-13 Instructio l tablet 17:10: ns, PRN Wallace 00 Anxiety, 1-1.5 tab PO BID, # 70 tab, 2 Refill(s), [facility], Pharmacy: [id number], 175.26, cm, 10/02/21 10:29:00 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, Height, 99.659, kg, 10/02/21 10:29:00 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, Weight clonazePAM 2-0 Yes See Memoria 1 mg oral 6-13 Instructio l tablet 17:10: ns, PRN Wallace 00 Anxiety, 1-1.5 tab PO BID, # 70 tab, 2 Refill(s), [facility], Pharmacy: [id number], 175.26, cm, 10/02/21 10:29:00 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, Height, 99.659, kg, 10/02/21 10:29:00 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, Weight clonazePAM 2021-0 Yes See Memoria 1 mg oral 6-13 Instructio l tablet 17:10: ns, PRN Wallace 00 Anxiety, 1-1.5 tab PO BID, # 70 tab, 2 Refill(s), [facility], Pharmacy: [id number], 175.26, cm, 10/02/21 10:29:00 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, Height, 99.659, kg, 10/02/21 10:29:00 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, Weight clonazePAM 2021-0 Yes See Memoria 1 mg oral 6-13 Instructio l tablet 17:10: ns, PRN Wallace 00 Anxiety, 1-1.5 tab PO BID, # 70 tab, 2 Refill(s), [facility], Pharmacy: [id number], 175.26, cm, 10/02/21 10:29:00 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, Height, 99.659, kg, 10/02/21 10:29:00 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, Weight Clonazepam 2-0 2023- No 1mg QD Take 1 Gloria ey 1 MG oral 6-13 05-10 tablet (1 Seyb old Tablet 00:00: 00:00 mg total) - 00 :00 by mouth Externa daily as l needed clonazePAM 2020-10 Yes See Memoria 1 mg oral 2-21 Instructio l tablet 16:56: ns, PRN Wallace 00 Anxiety, 1-1.5 tab PO BID, # 70 tab, 5 Refill(s), [facility], Pharmacy: [facility], 175.26, cm, 10/02/21 10:29:00 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, Height, 99.659, kg, 10/02/21 10:29:00 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, Weight clonazePAM 2020-10 Yes See Memoria 1 mg oral 2-21 Instructio l tablet 16:56: ns, PRN Talat 00 Anxiety, 1-1.5 tab PO BID, # 70 tab, 5 Refill(s), [facility], Pharmacy: [facility], 175.26, cm, 10/02/21 10:29:00 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, Height, 99.659, kg, 10/02/21 10:29:00 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, Weight clonazePAM 2020-10 Yes See Memoria 1 mg oral 2-21 Instructio l tablet 16:56: ns, PRN Talat 00 Anxiety, 1-1.5 tab PO BID, # 70 tab, 5 Refill(s), [facility], Pharmacy: [facility], 175.26, cm, 10/02/21 10:29:00 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, Height, 99.659, kg, 10/02/21 10:29:00 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, Weight clonazePAM 2020-10 Yes See Memoria 1 mg oral 2-21 Instructio l tablet 16:56: ns, PRN Wallace 00 Anxiety, 1-1.5 tab PO BID, # 70 tab, 5 Refill(s), [facility], Pharmacy: [facility], 175.26, cm, 10/02/21 10:29:00 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, Height, 99.659, kg, 10/02/21 10:29:00 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, Weight clonazePAM 2020- Yes See Memoria 1 mg oral 2-21 Instructio l tablet 16:56: ns, PRN Wallace 00 Anxiety, 1-1.5 tab PO BID, # 70 tab, 5 Refill(s), [facility], Pharmacy: [facility], 175.26, cm, 10/02/21 10:29:00 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, Height, 99.659, kg, 10/02/21 10:29:00 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, Weight clonazePAM 2020- Yes 1 mg = 1 Mem oria 1 mg oral 1-22 tab, PO, l tablet 19:20: BID, PRN Wallace 00 Anxiety, Needs FU appt, # 60 tab, 0 Refill(s), [facility], Pharmacy: [facility], 175.26, cm, 03/05/21 15:43:00 CDT, Height, 95.625, kg, 03/05/21 15:43:00 CDT, Weight clonazePAM 2020-1 Yes 1 mg = 1 Mem oria 1 mg oral 1-22 tab, PO, l tablet 19:20: BID, PRN Wallace 00 Anxiety, Needs FU appt, # 60 tab, 0 Refill(s), [facility], Pharmacy: [facility], 175.26, cm, 03/05/21 15:43:00 CDT, Height, 95.625, kg, 03/05/21 15:43:00 CDT, Weight clonazePAM 2020- Yes 1 mg = 1 Mem oria 1 mg oral 1-22 tab, PO, l tablet 19:20: BID, PRN Wallace 00 Anxiety, Needs FU appt, # 60 tab, 0 Refill(s), [facility], Pharmacy: [facility], 175.26, cm, 03/05/21 15:43:00 CDT, Height, 95.625, kg, 03/05/21 15:43:00 CDT, Weight clonazePAM 2020-1 Yes 1 mg = 1 Mem oria 1 mg oral 1-22 tab, PO, l tablet 19:20: BID, PRN Wallace 00 Anxiety, Needs FU appt, # 60 tab, 0 Refill(s), [facility], Pharmacy: [facility], 175.26, cm, 03/05/21 15:43:00 CDT, Height, 95.625, kg, 03/05/21 15:43:00 CDT, Weight clonazePAM 2020-1 Yes 1 mg = 1 Mem oria 1 mg oral 1-22 tab, PO, l tablet 19:20: BID, PRN Talat 00 Anxiety, Needs FU appt, # 60 tab, 0 Refill(s), [facility], Pharmacy: [facility], 175.26, cm, 03/05/21 15:43:00 CDT, Height, 95.625, kg, 03/05/21 15:43:00 CDT, Weight clonazePAM 2021-0 Yes 1 mg = 1 Mem oria 1 mg oral 5-24 tab, PO, l tablet 20:53: BID, PRN Wallace 00 Anxiety, # 60 tab, 5 Refill(s), [facility], Pharmacy: [facility], 175.26, cm, 03/05/21 15:43:00 CDT, Height, 95.625, kg, 03/05/21 15:43:00 CDT, Weight clonazePAM 2021-0 Yes 1 mg = 1 Mem oria 1 mg oral 5-24 tab, PO, l tablet 20:53: BID, PRN Wallace 00 Anxiety, # 60 tab, 5 Refill(s), [facility], Pharmacy: [facility], 175.26, cm, 03/05/21 15:43:00 CDT, Height, 95.625, kg, 03/05/21 15:43:00 CDT, Weight clonazePAM 2021-0 Yes 1 mg = 1 Mem oria 1 mg oral 5-24 tab, PO, l tablet 20:53: BID, PRN Wallace 00 Anxiety, # 60 tab, 5 Refill(s), [facility], Pharmacy: [facility], 175.26, cm, 03/05/21 15:43:00 CDT, Height, 95.625, kg, 03/05/21 15:43:00 CDT, Weight clonazePAM 2021-0 Yes 1 mg = 1 Mem oria 1 mg oral 5-24 tab, PO, l tablet 20:53: BID, PRN Talat 00 Anxiety, # 60 tab, 5 Refill(s), [facility], Pharmacy: [facility], 175.26, cm, 03/05/21 15:43:00 CDT, Height, 95.625, kg, 03/05/21 15:43:00 CDT, Weight clonazePAM 2021-0 Yes 1 mg = 1 Mem oria 1 mg oral 5-24 tab, PO, l tablet 20:53: BID, PRN Wallace 00 Anxiety, # 60 tab, 5 Refill(s), [facility], Pharmacy: [facility], 175.26, cm, 03/05/21 15:43:00 CDT, Height, 95.625, kg, 03/05/21 15:43:00 CDT, Weight clonazePAM 2021-0 Yes 1 mg = 1 Mem oria 1 mg oral 1-25 tab, PO, l tablet 18:55: BID, PRN Wallace 00 Anxiety, # 10 tab, 0 Refill(s), [facility], Pharmacy: [facility], 175.26, cm, 09/13/20 8:50:00 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, Height, 94.602, kg, 09/13/20 8:50:00 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, Weight clonazePAM 2021-0 Yes 1 mg = 1 Mem oria 1 mg oral 1-25 tab, PO, l tablet 18:55: BID, PRN Wallace 00 Anxiety, # 10 tab, 0 Refill(s), [facility], Pharmacy: [facility], 175.26, cm, 09/13/20 8:50:00 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, Height, 94.602, kg, 09/13/20 8:50:00 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, Weight clonazePAM 1-0 Yes 1 mg = 1 Mem oria 1 mg oral 1-25 tab, PO, l tablet 18:55: BID, PRN Talat 00 Anxiety, # 10 tab, 0 Refill(s), [facility], Pharmacy: [facility], 175.26, cm, 09/13/20 8:50:00 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, Height, 94.602, kg, 09/13/20 8:50:00 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, Weight clonazePAM 1-0 Yes 1 mg = 1 Mem oria 1 mg oral 1-25 tab, PO, l tablet 18:55: BID, PRN Wallace 00 Anxiety, # 10 tab, 0 Refill(s), [facility], Pharmacy: [facility], 175.26, cm, 09/13/20 8:50:00 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, Height, 94.602, kg, 09/13/20 8:50:00 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, Weight clonazePAM 2021-0 Yes 1 mg = 1 Mem oria 1 mg oral 1-25 tab, PO, l tablet 18:55: BID, PRN Talat 00 Anxiety, # 10 tab, 0 Refill(s), [facility], Pharmacy: [facility], 175.26, cm, 09/13/20 8:50:00 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, Height, 94.602, kg, 09/13/20 8:50:00 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, Weight clonazePAM 2019- Yes 1 mg = 1 Mem oria 1 mg oral 2-02 tab, PO, l tablet 15:40: BID, PRN Wallace 00 Anxiety, Needs Appt., # 60 tab, 5 Refill(s), [facility], Pharmacy: [facility], 175.26, cm, 09/13/20 8:50:00 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, Height, 94.602, kg, 09/13/20 8:50:00 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, Weight clonazePAM 2019- Yes 1 mg = 1 Mem oria 1 mg oral 2-02 tab, PO, l tablet 15:40: BID, PRN Wallace 00 Anxiety, Needs Appt., # 60 tab, 5 Refill(s), [facility], Pharmacy: [facility], 175.26, cm, 09/13/20 8:50:00 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, Height, 94.602, kg, 09/13/20 8:50:00 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, Weight clonazePAM 2019- Yes 1 mg = 1 Mem oria 1 mg oral 2-02 tab, PO, l tablet 15:40: BID, PRN Talat 00 Anxiety, Needs Appt., # 60 tab, 5 Refill(s), [facility], Pharmacy: [facility], 175.26, cm, 09/13/20 8:50:00 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, Height, 94.602, kg, 09/13/20 8:50:00 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, Weight clonazePAM 2019- Yes 1 mg = 1 Mem oria 1 mg oral 2-02 tab, PO, l tablet 15:40: BID, PRN Talat 00 Anxiety, Needs Appt., # 60 tab, 5 Refill(s), [facility], Pharmacy: [facility], 175.26, cm, 09/13/20 8:50:00 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, Height, 94.602, kg, 09/13/20 8:50:00 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, Weight clonazePAM 2019- Yes 1 mg = 1 Mem oria 1 mg oral 2-02 tab, PO, l tablet 15:40: BID, PRN Wallace 00 Anxiety, Needs Appt., # 60 tab, 5 Refill(s), [facility], Pharmacy: [facility], 175.26, cm, 09/13/20 8:50:00 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, Height, 94.602, kg, 09/13/20 8:50:00 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, Weight clonazePAM 2020-1 Yes 1 mg = 1 Mem oria 1 mg oral 1-20 tab, PO, l tablet 15:38: BID, PRN Talat 00 Anxiety, Needs Appt., # 28 tab, 0 Refill(s), [facility], Pharmacy: [facility], 176.53, cm, 04/14/19 9:12:00 CDT, Height, 97.727, kg, 04/14/19 9:12:00 CDT, Weight clonazePAM 2020-1 Yes 1 mg = 1 Mem oria 1 mg oral 1-20 tab, PO, l tablet 15:38: BID, PRN Wallace 00 Anxiety, Needs Appt., # 28 tab, 0 Refill(s), [facility], Pharmacy: [facility], 176.53, cm, 04/14/19 9:12:00 CDT, Height, 97.727, kg, 04/14/19 9:12:00 CDT, Weight clonazePAM 2020-1 Yes 1 mg = 1 Mem oria 1 mg oral 1-20 tab, PO, l tablet 15:38: BID, PRN Wallace 00 Anxiety, Needs Appt., # 28 tab, 0 Refill(s), [facility], Pharmacy: [facility], 176.53, cm, 04/14/19 9:12:00 CDT, Height, 97.727, kg, 04/14/19 9:12:00 CDT, Weight clonazePAM 2020-1 Yes 1 mg = 1 Mem oria 1 mg oral 1-20 tab, PO, l tablet 15:38: BID, PRN Wallace 00 Anxiety, Needs Appt., # 28 tab, 0 Refill(s), [facility], Pharmacy: [facility], 176.53, cm, 04/14/19 9:12:00 CDT, Height, 97.727, kg, 04/14/19 9:12:00 CDT, Weight clonazePAM 2020-1 Yes 1 mg = 1 Mem oria 1 mg oral 1-20 tab, PO, l tablet 15:38: BID, PRN Talat 00 Anxiety, Needs Appt., # 28 tab, 0 Refill(s), [facility], Pharmacy: [facility], 176.53, cm, 04/14/19 9:12:00 CDT, Height, 97.727, kg, 04/14/19 9:12:00 CDT, Weight clonazePAM 2020-1 Yes 1 mg = 1 Mem oria 1 mg oral 0-19 tab, PO, l tablet 17:04: BID, PRN Wallace 00 Anxiety, Needs Appt., # 60 tab, 5 Refill(s), [facility], Pharmacy: [facility], 176.53, cm, 04/14/19 9:12:00 CDT, Height, 97.727, kg, 04/14/19 9:12:00 CDT, Weight clonazePAM 2020-1 Yes 1 mg = 1 Mem oria 1 mg oral 0-19 tab, PO, l tablet 17:04: BID, PRN Wallace 00 Anxiety, Needs Appt., # 60 tab, 5 Refill(s), [facility], Pharmacy: [facility], 176.53, cm, 04/14/19 9:12:00 CDT, Height, 97.727, kg, 04/14/19 9:12:00 CDT, Weight clonazePAM 2020-1 Yes 1 mg = 1 Mem oria 1 mg oral 0-19 tab, PO, l tablet 17:04: BID, PRN Talat 00 Anxiety, Needs Appt., # 60 tab, 5 Refill(s), [facility], Pharmacy: [facility], 176.53, cm, 04/14/19 9:12:00 CDT, Height, 97.727, kg, 04/14/19 9:12:00 CDT, Weight clonazePAM 2020-1 Yes 1 mg = 1 Mem oria 1 mg oral 0-19 tab, PO, l tablet 17:04: BID, PRN Talat 00 Anxiety, Needs Appt., # 60 tab, 5 Refill(s), [facility], Pharmacy: [facility], 176.53, cm, 04/14/19 9:12:00 CDT, Height, 97.727, kg, 04/14/19 9:12:00 CDT, Weight clonazePAM 2020-1 Yes 1 mg = 1 Mem oria 1 mg oral 0-19 tab, PO, l tablet 17:04: BID, PRN Talat 00 Anxiety, Needs Appt., # 60 tab, 5 Refill(s), [facility], Pharmacy: [facility], 176.53, cm, 04/14/19 9:12:00 CDT, Height, 97.727, kg, 04/14/19 9:12:00 CDT, Weight clonazePAM 2020-0 Yes 1 mg = 1 Mem oria 1 mg oral 4-06 tab, PO, l tablet 13:28: BID, PRN Talat 00 Anxiety, Needs Appt., # 60 tab, 5 Refill(s), [facility], Pharmacy: [facility] clonazePAM 2020-0 Yes 1 mg = 1 Mem oria 1 mg oral 4-06 tab, PO, l tablet 13:28: BID, PRN Wallace 00 Anxiety, Needs Appt., # 60 tab, 5 Refill(s), [facility], Pharmacy: [facility] clonazePAM 2020-0 Yes 1 mg = 1 Mem oria 1 mg oral 4-06 tab, PO, l tablet 13:28: BID, PRN Talat 00 Anxiety, Needs Appt., # 60 tab, 5 Refill(s), [facility], Pharmacy: [facility] clonazePAM 2020-0 Yes 1 mg = 1 Mem oria 1 mg oral 4-06 tab, PO, l tablet 13:28: BID, PRN Talat 00 Anxiety, Needs Appt., # 60 tab, 5 Refill(s), [facility], Pharmacy: [facility] clonazePAM 2020-0 Yes 1 mg = 1 Mem oria 1 mg oral 4-06 tab, PO, l tablet 13:28: BID, PRN Talat 00 Anxiety, Needs Appt., # 60 tab, 5 Refill(s), [facility], Pharmacy: [facility] clonazePAM 2020-0 Yes 1 mg = 1 Mem oria 1 mg oral 3-12 tab, PO, l tablet 21:33: BID, PRN Wallace 00 Anxiety, Needs Appt., # 30 tab, 0 Refill(s), [facility], Pharmacy: [facility] clonazePAM 2020-0 Yes 1 mg = 1 Mem oria 1 mg oral 3-12 tab, PO, l tablet 21:33: BID, PRN Wallace 00 Anxiety, Needs Appt., # 30 tab, 0 Refill(s), [facility], Pharmacy: [place] [address] clonazePAM 2020-0 Yes 1 mg = 1 Mem oria 1 mg oral 3-12 tab, PO, l tablet 21:33: BID, PRN Talat 00 Anxiety, Needs Appt., # 30 tab, 0 Refill(s), [facility], Pharmacy: [place] [address] clonazePAM 2020-0 Yes 1 mg = 1 Mem oria 1 mg oral 3-12 tab, PO, l tablet 21:33: BID, PRN Wallace 00 Anxiety, Needs Appt., # 30 tab, 0 Refill(s), [facility], Pharmacy: [place] [address] clonazePAM 2020-0 Yes 1 mg = 1 Mem oria 1 mg oral 3-12 tab, PO, l tablet 21:33: BID, PRN Talat 00 Anxiety, Needs Appt., # 30 tab, 0 Refill(s), [facility], Pharmacy: [place] [address] clonazePAM 2020-0 Yes 1 mg = 1 Mem oria 1 mg oral 1-26 tab, PO, l tablet 04:51: BID, PRN Talat 00 Anxiety, # 60 tab, 0 Refill(s), [facility], Pharmacy: [place] [id number] clonazePAM 2020-0 Yes 1 mg = 1 Mem oria 1 mg oral 1-26 tab, PO, l tablet 04:51: BID, PRN Wallace 00 Anxiety, # 60 tab, 0 Refill(s), [facility], Pharmacy: [place] [id number] clonazePAM 2020-0 Yes 1 mg = 1 Mem oria 1 mg oral 1-26 tab, PO, l tablet 04:51: BID, PRN Wallace 00 Anxiety, # 60 tab, 0 Refill(s), [facility], Pharmacy: [facility] clonazePAM 2020-0 Yes 1 mg = 1 Mem oria 1 mg oral 1-26 tab, PO, l tablet 04:51: BID, PRN Wallace 00 Anxiety, # 60 tab, 0 Refill(s), [facility], Pharmacy: [place] [id number] clonazePAM 2020-0 Yes 1 mg = 1 Mem oria 1 mg oral 1-26 tab, PO, l tablet 04:51: BID, PRN Talat 00 Anxiety, # 60 tab, 0 Refill(s), [facility], Pharmacy: [id number] clonazePAM 2019-0 Yes 1 [...] tab, PO, l tablet 14:36: BID, PRN Wallace 55 Anxiety, # 60 tab, 5 Refill(s), [facility] clonazePAM 2019-0 Yes 1 mg = 1 Mem oria 1 mg oral 7-03 tab, PO, l tablet 14:36: BID, PRN Talat 55 Anxiety, # 60 tab, 5 Refill(s), [facility] clonazePAM 2019-0 Yes 1 mg = 1 Mem oria 1 mg oral 7-03 tab, PO, l tablet 14:36: BID, PRN Wallace 55 Anxiety, # 60 tab, 5 Refill(s), [facility] clonazePAM 2019-0 Yes 1 mg = 1 Mem oria 1 mg oral 6-24 tab, PO, l tablet 21:00: BID, # 28 Mor n 00 tab, 0 Refill(s) clonazePAM 2019-0 Yes 1 mg = 1 Mem oria 1 mg oral 6-24 tab, PO, l tablet 21:00: BID, # 28 Omr n 00 tab, 0 Refill(s) clonazePAM 2019-0 [...] Mor n 00 tab, 0 Refill(s) clonazePAM 2018-1 No 1 mg = 1 Mem oria 1 mg oral 0-23 tab, PO, l tablet 19:08: BID, # 60 Mor n 33 tab, 5 Refill(s) clonazePAM 2018-1 No 1 mg = 1 Mem oria 1 mg oral 0-23 tab, PO, l tablet 19:08: BID, # 60 Mor n 33 tab, 5 Refill(s) clonazePAM 2018-1 No 1 mg = 1 Mem oria 1 mg oral 0-23 tab, PO, l tablet 19:08: BID, # 60 Mor n 33 tab, 5 Refill(s) clonazePAM 2018-1 No 1 mg = 1 Mem oria 1 mg oral 0-23 tab, PO, l tablet 19:08: BID, # 60 Mor n 33 tab, 5 Refill(s) clonazePAM 2018-1 No 1 mg = 1 Mem o[facility] 1 mg oral 0-23 tab, PO, l tablet 19:08: BID, # 60 Mor n 33 tab, 5 Refill(s) clonazePAM 2018-0 Yes 1 mg = 1 [facility] 1 mg oral 4-13 tab, PO, l tablet 20:34: BID, # 60 Mor n 26 tab, 5 Refill(s) clonazePAM 2018-0 Yes 1 mg = 1 [facility] 1 mg oral 4-13 tab, PO, l tablet 20:34: BID, # 60 Mor n 26 tab, 5 Refill(s) clonazePAM 2018-0 Yes 1 mg = 1 [facility] 1 mg oral 4-13 tab, PO, l tablet 20:34: BID, # 60 Mor n 26 tab, 5 Refill(s) clonazePAM 2018-0 Yes 1 mg = 1 [facility] 1 mg oral 4-13 tab, PO, l tablet 20:34: BID, # 60 Mor n 26 tab, 5 Refill(s) clonazePAM 2018-0 Yes 1 mg = 1 [facility] 1 mg oral 4-13 tab, PO, l tablet 20:34: BID, # 60 Mor n 26 tab, 5 Refill(s) clonazePAM 2018-0 No 1 mg = 1 [facility] 1 mg oral 1-24 tab, PO, l tablet 22:21: BID, # 60 Mor n 59 tab, 1 Refill(s) clonazePAM 2018-0 No 1 mg = 1 [facility] 1 mg oral 1-24 tab, PO, l tablet 22:21: BID, # 60 Mor n 59 tab, 1 Refill(s) clonazePAM 2018-0 No 1 mg = 1 [facility] 1 mg oral 1-24 tab, PO, l tablet 22:21: BID, # 60 Mor n 59 tab, 1 Refill(s) clonazePAM 2018-0 No 1 mg = 1 [facility] 1 mg oral 1-24 tab, PO, l tablet 22:21: BID, # 60 Mor n 59 tab, 1 Refill(s) clonazePAM 2018-0 No 1 mg = 1 [facility] 1 mg oral 1-24 tab, PO, l tablet 22:21: BID, # 60 Mor n 59 tab, 1 Refill(s) Vital Signs Vital Name Observation Time Observation Value Comments Source Systolic blood 2023-02-19 16:52:00 120 mm[Hg] Jaylyn Burtybold - pressure External Diastolic blood 2023-02-19 16:52:00 78 mm[Hg] Farhana hernandez Seybold - pressure External Heart rate 2023-02-19 16:52:00 87 /min Jaylyn galiciabold - External Body temperature 2023-02-19 16:52:00 36.67 Miladys Gloria galicia Seybold - External Respiratory rate 2023-02-19 16:52:00 18 /min Gloria galicia Seybold - External Body height 2023-02-19 16:52:00 180.3 cm Jaylyn galiciabold - External Body weight 2023-02-19 16:52:00 95.255 kg Jaylyn galiciabold - External BMI 2023-02-19 16:52:00 29.29 kg/m2 Jaylyn galiciabold - External Temperature Oral (F) 2022-06-25 19:52:00 99.3 F [facility] Heart Rate 2022-06-25 19:52:00 [facility] Systolic (mm Hg) 2022-06-25 19:52:00 Jordy rial [facility] Diastolic (mm Hg) 2022-06-25 19:52:00 [facility] Weight 2022-06-25 19:52:00 [facility] Temperature Oral (F) 2021-10-02 16:29:00 98.3 F [facility] Heart Rate 2021-10-02 16:29:00 [facility] Systolic (mm Hg) 2021-10-02 16:29:00 Jordy rial Talat Diastolic (mm Hg) 2021-10-02 16:29:00 [facility] Height 2021-10-02 16:29:00 175.26 cm [facility] Weight 2021-10-02 16:29:00 [facility] BMI Calculated 2021-10-02 16:29:00 [facility] Systolic (mm Hg) 2021-03-05 20:43:00 Jordy rial [facility] Diastolic (mm Hg) 2021-03-05 20:43:00 [facility] Heart Rate 2021-03-05 20:43:00 [facility] Temperature Oral (F) 2021-03-05 20:43:00 98.2 F [facility] Height 2021-03-05 20:43:00 175.26 cm [facility] Weight 2021-03-05 20:43:00 [facility] BMI Calculated 2021-03-05 20:43:00 [facility] Systolic (mm Hg) 2020-09-13 15:38:00 Jordy rial [facility] Diastolic (mm Hg) 2020-09-13 15:38:00 [facility] Systolic (mm Hg) 2020-09-13 14:50:00 Jordy rial [facility] Diastolic (mm Hg) 2020-09-13 14:50:00 [facility] Heart Rate 2020-09-13 14:50:00 [facility] Temperature Oral (F) 2020-09-13 14:50:00 98.8 F [facility] Height 2020-09-13 14:50:00 175.26 cm [facility] Weight 2020-09-13 14:50:00 [facility] BMI Calculated 2020-09-13 14:50:00 [facility] Weight 2019-04-14 14:12:00 [facility] Height 2019-04-14 14:12:00 176.53 cm [facility] Systolic (mm Hg) 2019-04-14 14:12:00 Jordy rial [facility] Diastolic (mm Hg) 2019-04-14 14:12:00 [facility] Temperature Oral (F) 2019-04-14 14:12:00 98.6 F [facility] Heart Rate 2019-04-14 14:12:00 [facility] BMI Calculated 2019-04-14 14:12:00 [facility] Weight 2018-08-04 18:39:00 [facility] BMI Calculated 2018-08-04 18:39:00 [facility] Height 2018-08-04 18:39:00 177.8 cm [facility] Heart Rate 2018-08-04 18:39:00 [facility] Temperature Oral (F) 2018-08-04 18:39:00 98.0 F [facility] Systolic (mm Hg) 2018-08-04 18:39:00 Jordy rial [facility] Diastolic (mm Hg) 2018-08-04 18:39:00 [facility] Weight 2018-01-23 20:20:00 [facility] Systolic (mm Hg) 2018-01-23 20:20:00 Jordy [facility] Diastolic (mm Hg) 2018-01-23 20:20:00 [facility] Temperature Oral (F) 2018-01-23 20:20:00 99.1 F [facility] Heart Rate 2018-01-23 20:20:00 [facility] Procedures This patient has no known procedures. Encounters Start End Encounter Admission Attending Care Care Encounter Source Date/Time Date/Time Type Type Clinicians Facility Department ID 2023-04-23 2023-04-23 Outpatient JAYLYN FRAUSTO [id number] Jaylyn 00:00:00 00:00:00 JERECIA Seybol d 2023-02-19 2023-02-19 Outpatient JAYLYN FRAUSTO [id number] Jaylyn 11:30:00 11:30:00 JERECIA Seybol d 2023-02-13 2023-02-13 Outpatient JAYLYN CONNOR [id number] Jaylyn 16:30:00 16:30:00 ELAYNE Seybol d 2022-12-26 2022-12-26 Outpatient JAYLYN FRAUSTO [id number] Jaylyn 16:30:00 16:30:00 JERECIA Seybol d 2022-11-29 2022-11-29 Outpatient JAYLYN TARANGO [id number] Jaylyn 14:45:00 14:45:00 CHIP Seybol d 2022-06-25 2022-06-26 Outpatient [facility] [id number] Memoria 20:00:00 04:59:59 r Primary 18 l Saloni Mariscal 2022-06-25 2022-06-26 Outpatient [facility] [id number] Memoria 20:00:00 04:59:59 r Primary 18 l Saloni Mariscal 2022-06-25 2022-06-25 [facility] [id number] 15:00:00 23:59:59 Jerecia 18 Aries 2022-06-25 2022-06-25 Outpatient [facility] [id number] Memoria 15:00:00 15:00:00 18 heidi Gilliland 2022-04-02 2022-04-02 Ambulatory nullFlavo [facility] [id number] Memoria 14:00:00 14:00:00 Pre-Reg r Primary 17 l Saloni Mariscal 2022-04-02 2022-04-02 Ambulatory nullFlavo [facility] [id number] Memoria 14:00:00 14:00:00 Pre-Reg r Primary 17 l Saloni Mariscal 2022-04-02 2022-04-02 Outpatient MHIE IE [id number] Memoria 09:00:00 09:00:00 17 heidi Gilliland 2022-04-02 2022-04-02 [facility] [id number] 09:00:00 09:00:00 Jerecia Hitesh Chris 2022-03-25 2022-03-27 Phone nullFlavo [facility] [id number] Memoria 16:35:43 04:59:59 Message r Primary 22 l Saloni Mariscal 2022-03-25 2022-03-27 Phone nullFlavo [facility] [id number] Memoria 16:35:43 04:59:59 Message r Primary 22 l Saloni Mariscal 2022-03-25 2022-03-26 Outpatient [facility] [id number] 11:35:43 23:59:59 22 2022-01-11 2022-01-13 Phone nullFlavo [facility] [id number] Memoria 21:34:58 04:59:59 Message r Primary 21 l Saloni Mariscal 2022-01-11 2022-01-13 Phone nullFlavo [facility] [id number] Memoria 21:34:58 04:59:59 Message r Primary 21 l Saloni Mariscal 2022-01-11 2022-01-12 Outpatient [facility] [id number] 16:34:58 23:59:59 21 2021-10-02 2021-10-03 Outpatient nullFlavo [facility] [id number] Memoria 17:00:00 05:59:59 r Primary 16 l Saloni Mariscal 2021-10-02 2021-10-03 Outpatient nullFlavo [facility] [id number] Memoria 17:00:00 05:59:59 r Primary 16 l Saloni Mariscal 2021-10-02 2021-10-02 Outpatient Scar [facility] [id number] 11:00:00 23:59:59 Jerecia Lucas Chris 2021-10-02 2021-10-02 Outpatient MHIE MH[facility] [id number] Memoria 11:00:00 11:00:00 16 l [facility] 2021-09-26 2021-09-26 Ambulatory nullFlavo [facility] [id number] Memoria 16:00:00 16:00:00 Pre-Reg r Primary 15 l Saloni Mariscal 2021-09-26 2021-09-26 Ambulatory nullFlavo [facility] [id number] Memoria 16:00:00 16:00:00 Pre-Reg r Primary 15 l Saloni Mariscal 2021-09-26 2021-09-26 Outpatient MHIE [facility] [id number] Memoria 10:00:00 10:00:00 15 heidi Gilliland 2021-09-26 2021-09-26 Outpatient Scar [facility] [id number] 10:00:00 10:00:00 Jerecia Madai Chris 2021-09-03 2021-09-05 Phone nullFlavo [facility] [id number] Memoria 16:06:11 05:59:59 Message r Primary 20 l Saloni Mariscal 2021-09-03 2021-09-05 Phone nullFlavo [facility] [id number] Memoria 16:06:11 05:59:59 Message r Primary 20 l Saloni Mariscal 2021-09-03 2021-09-04 Outpatient [facility] [id number] 10:06:11 23:59:59 20 2021-03-05 2021-03-06 [place] [id number] Memoria 20:40:00 04:59:59 r Primary 14 l [facility] 2021-03-05 2021-03-06 [place] [id number] Memoria 20:40:00 04:59:59 r Primary 14 l [facility] 2021-03-05 2021-03-05 [id number] 15:40:00 23:59:59 Jerecia 14 Aries 2021-03-05 2021-03-05 Outpatient MHIE [facility] [id number] Memoria 15:40:00 15:40:00 14 heidi Wallace 2020-11-06 2020-11-08 Phone nullFlavo [facility] [id number] Memoria 14:54:07 05:59:59 Message r Primary 19 l [facility] 2020-11-06 2020-11-08 Phone nullFlavo MG [id number] Memoria 14:54:07 05:59:59 Message r Primary 19 l [facility] 2020-11-06 2020-11-07 Outpatient [facility] [id number] 08:54:07 23:59:59 19 2020-10-09 2020-10-11 Phone nullFlavo [facility] [id number] Memoria 20:11:47 05:59:59 Message r Primary 18 l [facility] 2020-10-09 2020-10-11 Phone nullFlavo MG [id number] Memoria 20:11:47 05:59:59 Message r Primary 18 l [facility] 2020-10-09 2020-10-10 Outpatient [facility] [id number] 14:11:47 23:59:59 18 2020-09-13 2020-09-14 [place] [id number] Memoria 15:20:00 05:59:59 r Primary 13 l [facility] 2020-09-13 2020-09-14 Outpatient nullFlavo [facility] [id number] Memoria 15:20:00 05:59:59 r Primary 13 l [facility] 2020-09-13 2020-09-13 [facility] [id number] 09:20:00 23:59:59 Jerecia 13 Aries 2020-09-13 2020-09-13 Outpatient MHIE MH[facility] [id number] Memoria 09:20:00 09:20:00 13 heidi Wallace 2020-09-01 2020-09-03 Phone nullFlavo [facility] [id number] Memoria 15:11:57 05:59:59 Message r Primary 17 l [facility] 2020-09-01 2020-09-03 Phone nullFlavo [facility] [id number] Memoria 15:11:57 05:59:59 Message r Primary 17 l [facility] 2020-09-01 2020-09-02 Outpatient [facility] [id number] 09:11:57 23:59:59 17 2020-09-01 2020-09-01 Ambulatory nullFlavo [facility] [id number] Memoria 15:40:00 15:40:00 Pre-Reg r Primary 12 l [facility] 2020-09-01 2020-09-01 Ambulatory nullFlavo [facility] [id number] Memoria 15:40:00 15:40:00 Pre-Reg r Primary 12 l [facility] 2020-09-01 2020-09-01 Outpatient MHIE MHIE [id number] Memoria 09:40:00 09:40:00 12 [facility] 2020-09-01 2020-09-01 Outpatient Scar, [facility] [id number] 09:40:00 09:40:00 Jerecia 12 [facility] 2020-07-28 2020-07-30 Phone nullFlavo [facility] [id number] Memoria 14:56:23 04:59:59 Message r Primary 16 l [facility] 2020-07-28 2020-07-30 Phone nullFlavo [facility] [id number] Memoria 14:56:23 04:59:59 Message r Primary 16 l [facility] 2020-07-28 2020-07-29 Outpatient [facility] [id number] 09:56:23 23:59:59 16 2020-01-17 2020-01-18 Outpatient nullFlavo [facility] [id number] Memoria 13:00:00 04:59:59 r Primary 11 l [facility] 2020-01-17 2020-01-18 Outpatient nullFlavo [facility] [id number] Memoria 13:00:00 04:59:59 r Primary 11 l Saloni Talatrody Mariscal 2020-01-17 2020-01-17 Outpatient Frausto, MG [facility] [id number] 08:00:00 23:59:59 Jerecia 11 [facility] 2020-01-17 2020-01-17 Outpatient MHIE MHIE [id number] Memoria 08:00:00 08:00:00 11 heidi Wallace 2019-12-23 2019-12-25 Phone nullFlavo [facility] [id number] Memoria 16:05:37 04:59:59 Message r Primary 15 l [facility] 2019-12-23 2019-12-25 Phone nullFlavo [facility] [id number] Memoria 16:05:37 04:59:59 Message r Primary [address] [facility] 2019-12-23 2019-12-24 Outpatient [facility] [id number] 11:05:37 23:59:59 15 2019-11-05 2019-11-07 Phone nullFlavo [facility] [id number] Memoria 17:17:28 05:59:59 Message r Primary [address] [facility] 2019-11-05 2019-11-07 Phone nullFlavo [facility] [id number] Memoria 17:17:28 05:59:59 Message r Primary 14 heidi Guallpa [facility] 2019-11-05 2019-11-06 Outpatient MH[facility] [id number] 11:17:28 23:59:59 14 2019-04-14 2019-04-15 Outpatient nullFlavo [facility] [id number] Memoria 14:00:00 04:59:59 r Primary [address] [facility] 2019-04-14 2019-04-15 Outpatient nullFlavo [facility] [id number] Memoria 14:00:00 04:59:59 r Primary [address] [facility] 2019-04-14 2019-04-14 Outpatient Scar, MG [facility] [id number] 09:00:00 23:59:59 Jerecia Meliton Chris 2019-04-14 2019-04-14 Outpatient MHIE MHIE [id number] Memoria 09:00:00 09:00:00 10 heidi Wallace 2019-04-05 2019-04-07 Phone nullFlavo [facility] [id number] Memoria 20:31:36 04:59:59 Message r Primary 13 l [facility] 2019-04-05 2019-04-07 Phone nullFlavo [facility] [id number] Memoria 20:31:36 04:59:59 Message r Primary 13 l [facility] 2019-04-05 2019-04-06 Outpatient [facility] [id number] 15:31:36 23:59:59 13 2019-02-25 2019-02-27 Phone nullFlavo [facility] [id number] Memoria 14:35:19 04:59:59 Message r Primary 12 [facility] 2019-02-25 2019-02-27 Phone nullFlavo [facility] [id number] Memoria 14:35:19 04:59:59 Message r Primary 12 [facility] 2019-02-25 2019-02-26 Outpatient MHMG MG [id number] 09:35:19 23:59:59 12 2019-01-22 2019-01-24 Phone nullFlavo MG [id number] Memoria 14:32:00 04:59:59 Message r Primary 11 [facility] 2019-01-22 2019-01-24 Phone nullFlavo MG [id number] Memoria 14:32:00 04:59:59 Message r Primary 11 [facility] 2019-01-22 2019-01-23 Outpatient MHMG MG [id number] 09:32:00 23:59:59 11 2018-08-04 2018-08-05 [place] [id number] Memoria 19:20:00 04:59:59 r Primary 09 [facility] 2018-08-04 2018-08-05 [place] [id number] Memoria 19:20:00 04:59:59 r Primary 09 l [facility] 2018-08-04 2018-08-04 [id number] 14:20:00 23:59:59 Art L 2018-08-04 2018-08-04 Outpatient MHIE MHIE [id number] Memoria 14:20:00 14:20:00 09 [facility] 2018-01-23 2018-01-24 [place] [id number] Memoria 20:10:00 04:59:59 r Primary 08 l [facility] 2018-01-23 2018-01-24 [place] [id number] Memoria 20:10:00 04:59:59 r Primary 08 l [facility] 2018-01-22 2018-01-24 Phone nullFlavo [facility] [id number] Memoria 15:01:00 04:59:59 Message r Primary 10 l [facility] 2018-01-22 2018-01-24 Phone nullFlavo [facility] [id number] Memoria 15:01:00 04:59:59 Message r Primary 10 l [facility] 2018-01-23 2018-01-23 [id number] 15:10:00 23:59:59 Art L 08 2018-01-22 2018-01-23 Outpatient MG MG [id number] 10:01:00 23:59:59 10 2018-01-23 2018-01-23 [place] [id number] Memoria 20:10:00 20:10:00 Pre-Reg r Primary 07 l [facility] 2018-01-23 2018-01-23 [place] [id number] Memoria 20:10:00 20:10:00 Pre-Reg r Primary 07 l [facility] 2018-01-23 2018-01-23 Outpatient MHIE IE [id number] Memoria 15:10:00 15:10:00 08 l [facility] 2018-01-23 2018-01-23 Outpatient IE IE [id number] Memoria 15:10:00 15:10:00 07 l [facility] 2018-01-23 2018-01-23 [id number] 15:10:00 15:10:00 Art L 07 2017-11-05 2017-11-07 Phone nullFlavo MG [id number] Memoria 22:15:00 05:59:59 Message r Primary 09 l [facility] 2017-11-05 2017-11-07 Phone nullFlavo MG [id number] Memoria 22:15:00 05:59:59 Message r Primary 09 l [facility] 2017-11-05 2017-11-06 Outpatient [facility] [id number] 16:15:00 23:59:59 09 2017-07-08 2017-07-08 Outpatient MHIE MHIE [id number] Memoria 13:30:00 13:30:00 06 heidi Gilliland 2017-07-08 2017-07-08 Outpatient MHIE MHIE [id number] Memoria 13:30:00 13:30:00 06 heidi Talat 2016-12-06 2016-12-06 Outpatient MHIE MHIE [id number] Memoria 13:30:00 13:30:00 05 heidi Talat 2016-12-06 2016-12-06 Outpatient MHIE MHIE [id number] Memoria 13:30:00 13:30:00 05 heidi Talat 2016-12-04 2016-12-04 Outpatient MHIE MHIE [id number] Memoria 09:00:00 09:00:00 04 heidi Talat 2016-12-04 2016-12-04 Outpatient MHIE MHIE [id number] Memoria 09:00:00 09:00:00 04 heidi Gilliland 2016-06-03 2016-06-03 Outpatient MHIE MHIE [id number] Memoria 15:15:00 15:15:00 02 heidi Wallace 2016-06-03 2016-06-03 Outpatient MHIE MHIE [id number] Memoria 15:15:00 15:15:00 02 heidi Gilliland 2016-03-08 2016-03-08 Outpatient MHIE MHIE [id number] Memoria 14:45:00 14:45:00 03 heidi Gilliland 2016-03-08 2016-03-08 Outpatient MHIE MHIE [id number] Memoria 14:45:00 14:45:00 03 heidi Gilliland 2015-12-22 2015-12-22 Outpatient MHIE MHIE [id number] Memoria 10:45:00 10:45:00 01 heidi Gilliland 2015-12-22 2015-12-22 Outpatient MHIE MHIE [id number] Memoria 10:45:00 10:45:00 01 heidi Gilliland 2015-12-21 2015-12-21 Outpatient MHIE MHIE [id number] Memoria 08:00:00 08:00:00 00 heidi Gilliland 2015-12-21 2015-12-21 Outpatient MHIE MHIE [id number] Memoria 08:00:00 08:00:00 00 heidi Gilliland Results This patient has no known results.
[2023-05-12 20:57] LABS: Absolute Lymphocytes (CBC) 3.3 K/uL (0.7-4.9); Hematocrit 44.1 % (39.6-49.0); Lymphocytes % 24.5 % (15.3-44.8); MCV 93.6 fL (80-100); MPV 8.8 fL (7.6-11.3); RBC Red Blood Cell Count 4.71 M/uL (4.33-5.43)
[2023-05-12 20:59] LABS: Albumin 3.8 g/dL (3.4-5.0); Bilirubin Total 0.9 mg/dL (0.2-1.0); Potassium 3.7 mEq/L (3.5-5.1)
--- NOTE | 2023-05-12 21:12 | RAD REPORT ---
EXAM DESCRIPTION: CTAbdomen Pelvis W Contrast - 05/12/2023 8:59 pm CLINICAL HISTORY: ABD pain, history of diverticulitis COMPARISON: [facility] Protocol dated 05/04/2023 TECHNIQUE: CT of the abdomen and pelvis was performed with IV contrast. All CT scans are performed using dose optimization technique as appropriate and may include automated exposure control or mA/KV adjustment according to patient size. FINDINGS: Lower chest: No acute abnormality. Liver: No acute abnormality or suspicious lesions. Biliary: No biliary ductal dilatation. Stomach: No significant focal abnormality. Duodenum: No significant focal abnormality. Pancreas: No significant abnormality. Spleen: No significant abnormality. Adrenal: No suspicious lesions. Kidney/ureter: No hydronephrosis. No renal calculi. Retroperitoneum: No retroperitoneal adenopathy. Vascular: No aneurysm. Bowel: Inflammatory changes at the distal descending colon are no longer identified. Moderate formed stool present in the ascending, descending, and transverse colon. Normal appendix. .. Peritoneum: No ascites or free air. Tiny fat containing umbilical hernia . Bladder: Grossly unremarkable. Reproductive: No adnexal masses. Bones: No acute fracture. Other: n/a IMPRESSION: Inflammatory changes at the distal descending colon have resolved. No acute intra-abdomi nal abnormality. Moderate stool in the ascending, transverse, and descending colon.
[2023-05-12 22:06] LABS: Urine Bilirubin NEGATIVE (Negative); Urine Blood Negative (Negative); Urine Clarity Clear (Clear); Urine Color Light-Yellow (Yellow); Urine Glucose NEGATIVE (Negative); Urine Protein NEGATIVE (Negative); Urine Urobilinogen Normal (Normal)
--- NOTE | 2023-05-12 22:40 | EDPHYS ---
Physician Documentation [facility] Name: Joe Campo Age: 53 yrs Sex: Male : 1970 Arrival Date: 05/12/2023 Time: 20:10 Bed DX4 Private MD: ED Physician Erick Will HPI: 05/12 20:14 This 53 yrs old Other Male presents to ER via Unassigned with complaints of sp4 Constipation. 20:22 Very pleasant 53-year-old male presents with complaint of constipation no bowel sp4 movements since Friday, advised for the past 5 days he reported no bowel movements. Patient was here on 05/04/2023 with abdominal complaints and was diagnosed with diverticulitis of the distal colon. . 20:26 Patient denied any pain rectal bleeding or any fever, but did report significant sp4 constipation as of today. 20:28 Patient states he has been consuming brat diet and these consisted of bananas sp4 applesauce and prune juice. Historical: - Allergies: 20:25 Paxil; as6 20:25 Zoloft; as6 - PMHx: 20:25 Anxiety; as6 - PSHx: 20:25 None; as6 - Immunization history:: Client reports having NOT received the Covid vaccine. - Social history:: Smoking status: Patient denies any tobacco usage or history of. - Family history:: not pertinent. ROS: 20:27 Constitutional: Negative for fever, chills, and weight loss, Abdomen/GI: Negative for sp4 abdominal pain, nausea, vomiting, diarrhea, positive for constipation 20:27 All other systems are negative. Exam: 20:27 Constitutional: This is a well developed, well nourished patient who is awake, alert, sp4 and in no acute distress. Head/Face: Normocephalic, atraumatic. Eyes: Pupils equal round and reactive to light, extra-ocular motions intact. Lids and lashes normal. Conjunctiva and sclera are not injected. Cornea within normal limits. Periorbital areas with no swelling, redness, or edema. ENT: Nares patent. No nasal discharge, no septal abnormalities noted. Tympanic membranes are normal and external auditory canals are clear. Oropharynx with no redness, swelling, or masses, exudates, or evidence of obstruction, uvula midline. Mucous membranes moist. Neck: Trachea midline, no thyromegaly or masses palpated, and no cervical lymphadenopathy. Supple, full range of motion without nuchal rigidity, or vertebral point tenderness. Chest/axilla: Normal chest wall appearance and motion. Nontender with no deformity. No lesions are appreciated. Cardiovascular: Regular rate and rhythm with a normal S1 and S2. No gallops, murmurs, or rubs. Normal PMI, no JVD. No pulse deficits. Respiratory: Lungs have equal breath sounds bilaterally, clear to auscultation and percussion. No rales, rhonchi or wheezes noted. No increased work of breathing, no retractions or nasal flaring. Abdomen/GI: Soft, non-tender, with normal bowel sounds. No distension or tympany. No guarding or rebound. No evidence of tenderness throughout. Back: No spinal tenderness. No costovertebral tenderness. Skin: Warm, dry with normal turgor. Normal color with no rashes, no lesions, and no evidence of cellulitis. MS/ Extremity: Pulses equal, no cyanosis. Neurovascular intact. Full, normal range of motion. Neuro: Awake and alert, GCS 15, oriented to person, place, time, and situation. Cranial nerves II-XII grossly intact. Motor strength 5/5 in all extremities. Sensory grossly intact. Psych: Awake, alert, with orientation to person, place and time. Behavior, mood, and affect are within normal limits Vital Signs: 20:20 BP 126 / 90; Pulse 95; Resp 18 S; Temp 98.7(O); Pulse Ox 98% on R/A; Weight 97.52 kg as6 (R); Height 5 ft. 11 in. (R); Pain 0/10; 20:20 Body Mass Index 29.99 (97.52 kg, 180.34 cm) as6 20:20 Pain Scale: Adult as6 MDM: 20:28 Patient medically screened. sp4 22:38 Data reviewed: vital signs, nurses notes, old medical records, lab test result(s), sp4 radiologic studies, CT scan. Consideration of Admission/Observation Escalation of care including admission/observation considered. ED course: Today patient's diverticulitis has resolved based on the CT scan and patient has moderate constipation. Patient will be prescribed lactulose twice a day for resolution of constipation. We will advised to continue high-fiber diet as recommended during a prior visit . . 05/12 20:23 Order name: CBC with Diff; Complete Time: 22:29 sp4 05/12 20:23 Order name: CMP; Complete Time: 22: sp4 05/12 20:23 Order name: Lipase; Complete Time: 22:29 sp4 05/12 20:23 Order name: Urinalysis w/ reflexes; Complete Time: 22: sp4 05/12 20:23 Order name: CT Abd/Pelvis - IV Contrast Only; Complete Time: 22: sp4 05/12 20:23 Order name: IV Saline Lock; Complete Time: 20:32 sp4 05/12 20:23 Order name: Labs collected and sent; Complete Time: :32 sp4 Administered Medications: No medications were administered Disposition Summary: 05/12/23 22:39 Discharge Ordered Location: Home sp4 Problem: new sp4 Symptoms: have improved sp4 Condition: Stable sp4 Diagnosis - Slow transit constipation sp4 Followup: sp4 - With: Private Physician - When: 10 - 14 days - Reason: Recheck today's complaints Discharge Instructions: - Discharge Summary Sheet sp4 - Constipation, Adult, [id number] sp4 Forms: - Patient Portal Instructions sp4 Prescriptions: - Lactulose 10 gram/15 mL Oral Solution - take 30 milliliters by ORAL route every 12 hours every 12 hours until sp4 constipation resolves; 300 milliliter; Refills: 0, Product Selection Permitted Signatures: Dispatcher [employer] Charly Streeter RN RN as6 Erick Will MD MD sp4
--- NOTE | 2023-05-12 22:40 | ER ---
Nurse's Notes [facility] Name: Joe Campo Age: 53 yrs Sex: Male : 1970 Arrival Date: 05/12/2023 Time: 20:10 Bed DX4 Private MD: Diagnosis: Slow transit constipation Presentation: 05/12 20:20 Chief complaint: Patient states: "I have been constipated since Friday" pt reports as6 being recently diagnosis with diverticulitis. Coronavirus screen: At this time, the client does not indicate any symptoms associated with coronavirus-19. Ebola Screen: No symptoms or risks identified at this time. Initial Sepsis Screen: Does the patient meet any 2 criteria? No. Patient's initial sepsis screen is negative. Does the patient have a suspected source of infection? No. Patient's initial sepsis screen is negative. Risk Assessment: Do you want to hurt yourself or someone else? Patient reports no desire to harm self or others. Onset of symptoms was May 12, 2023. 20:20 Method Of Arrival: Ambulatory as6 20:20 Acuity: EMILY 3 as6 Triage Assessment: 20:26 General: Appears in no apparent distress. Behavior is calm, cooperative. Pain: Denies as6 pain. GI: Reports constipation. Historical: - Allergies: 20:25 Paxil; as6 20:25 Zoloft; as6 - PMHx: 20:25 Anxiety; as6 - PSHx: 20:25 None; as6 - Immunization history:: Client reports having NOT received the Covid vaccine. - Social history:: Smoking status: Patient denies any tobacco usage or history of. - Family history:: not pertinent. Screenin:46 [facility] ED Fall Risk Assessment (Adult) Score/Fall Risk Level 0 - 2 = Low Risk. Abuse as6 screen: Denies threats or abuse. Denies injuries from another. Nutritional screening: No deficits noted. Tuberculosis screening: No symptoms or risk factors identified. Vital Signs: 20:20 BP 126 / 90; Pulse 95; Resp 18 S; Temp 98.7(O); Pulse Ox 98% on R/A; Weight 97.52 kg as6 (R); Height 5 ft. 11 in. (R); Pain 0/10; 20:20 Body Mass Index 29.99 (97.52 kg, 180.34 cm) as6 20:20 Pain Scale: Adult as6 ED Course: 20:13 Patient arrived in ED. jj6 20:14 Erick Will MD is Attending Physician. sp4 20:20 Arm band placed on. as6 20:25 Triage completed. as6 20:32 Inserted saline lock: 20 gauge in right forearm, using aseptic technique. Blood as6 collected. 21:01 CT Abd/Pelvis - IV Contrast Only In Process Unspecified. EDMS 22:46 Bed in low position. Call light in reach. Provided Education on: follow up instructions as6 . 22:47 No provider procedures requiring assistance completed. Patient did not have IV access as6 during this emergency room visit. Administered Medications: No medications were administered Medication: 22:47 VIS not applicable for this client. as6 Outcome: 22:39 Discharge ordered by . sp4 22:47 Discharged to home ambulatory. as6 22:47 Condition: stable 22:47 Discharge instructions given to patient, Instructed on discharge instructions, follow up and referral plans. Demonstrated understanding of instructions, follow-up care. 22:47 Patient left the ED. as6 Signatures: Dispatcher [employer] EDWY LizandroAndie jj6 Charly Brooks, BELLO RN as6 Erick Will MD MD sp4
[2023-05-12 23:17] VITALS: BP 126/90; TEMP 98.7; O2SAT 98
== END 2023-05-12 22:47 | disposition home or self-care (01) ==
LOC: ER 20:10
DX: K59.01 Slow transit constipation (principal)
CPT/HCPCS: 85025; 36415; 81003; 83690; 80053; 74177; 99283; Q9967

== ENCOUNTER 2024-11-20 23:15 | Emergency (ER) | payer OTHER, SELFPAY ==
[2024-11-20] MEDS ORDERED: THIAMINE 200 MG/2 ML INJ ONE (23:59)
[2024-11-20] MEDS ORDERED: NA CHLORIDE 0.9% 1,000 ML ONE (23:59)
[2024-11-21 00:04] LABS: Absolute Basophils 0.1 K/uL (0-0.5); Absolute Eosinophils 0.1 K/uL (0-0.5); Absolute Lymphocytes (CBC) 1.5 K/uL (0.7-4.9); Absolute Monocytes 0.9 K/uL (0.1-1.3); Absolute Neutrophil 7.3 K/uL (1.8-8.0); Basophils % 0.5 % (0-1.3); Eosinophils % 0.6 % (0-4.4); Hematocrit 44.4 % (39.6-49.0); Hemoglobin 15.7 g/dL (13.6-17.9); Lymphocytes % 15.5 % (15.3-44.8); MCH 33.7 pg (27.0-35.0); MCHC 35.5 g/dL (32.0-36.0); MCV 95.1 fL (80-100); MPV 8.6 fL (7.6-11.3); Monocytes % 9.1 % (3.3-12.3); Neutrophils % 74.3 % (41.7-73.7); Platelets 171 thou/uL (152-406); RBC Red Blood Cell Count 4.67 M/uL (4.33-5.43); Red Cell Distribution Width 13.5 % (12.1-15.2)
[2024-11-21 00:22] LABS: PT Prothrombin Time 12.3 SECONDS (9.4-12.5); PTT, Activated Partial Thromb 25.2 SECONDS (24.3-36.9); Protime INR 1.17
[2024-11-21 00:26] LABS: ALT/SGPT 59 U/L (16-61); AST/SGOT 84 U/L (15-37); Albumin 3.3 g/dL (3.4-5.0); Albumin/Globulin Ratio 0.7 (1.1-1.8); Alkaline Phosphatase 104 U/L (45-117); Anion Gap 15.7 mEq/L (5.0-15.0); BUN Blood Urea Nitrogen 3 mg/dL (7-18); Bicarbonate 23 mEq/L (21-32); Bilirubin Direct 0.5 mg/dL (0-0.2); Bilirubin Indirect, Calculated 0.8 mg/dL (0.2-0.8); Bilirubin Total 1.3 mg/dL (0.2-1.0); Globulin 4.8 g/dL (2.3-3.5); Glomerular Filtration Rate 113 ml/min (=/>90); Glucose Level 96 mg/dL (74-106); Potassium 3.7 mEq/L (3.5-5.1); Protein, Total 8.1 g/dL (6.4-8.2); Sodium Level 130 mEq/L (136-145)
--- NOTE | 2024-11-21 00:49 | ER ---
Nurse's Notes [facility] Name: Joe Campo Age: 54 yrs Sex: Male : 1970 Arrival Date: 11/20/2024 Time: 23:15 Bed 19 Private MD: Diagnosis: Anxiety disorder, unspecified;Adjustment disorder with anxiety;Alcohol abuse;Alcohol abuse with intoxication Presentation: 11/20 23:43 Chief complaint: EMS states: TONED OUT FOR KLONOPIN WITHDRAWS. 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 PT REPORTS HE SMOKED MARIJUANA AND DRANK SEVERAL BEERS TODAY TO HELP WITH THE ANXIETY. Coronavirus screen: At this time, the client does not indicate any symptoms associated with coronavirus-19. Ebola Screen: No symptoms or risks identified at this time. Initial Sepsis Screen: Does the patient meet any 2 criteria? No. Patient's initial sepsis screen is negative. Does the patient have a suspected source of infection? No. Patient's initial sepsis screen is negative. Risk Assessment: Do you want to hurt yourself or someone else? Patient reports no desire to harm self or others. Onset of symptoms is unknown. 23:43 Method Of Arrival: EMS: [facility] dd2 23:43 Acuity: EMILY 3 dd2 23:49 Care prior to arrival: Medication(s) given: ATIVAN 2MG REGLAN 10MG IV initiated. 20 GA, dd2 in the right forearm, Glucose check: 108. Historical: - Allergies: 23:47 Paxil; dd2 23:47 Zoloft; dd2 - Home Meds: 23:47 clonazepam 1 mg Oral tablet 2 times per day [Active]; dd2 - PMHx: 23:47 Anxiety; dd2 - Immunization history:: Adult Immunizations unknown. - Infectious Disease History:: Denies. - Family history:: not pertinent. - Social history:: Smoking status: Patient reports the use of cigarette tobacco products. Screenin/09 00:56 [facility] ED Fall Risk Assessment (Adult) History of falling in the last 3 months, dd2 including since admission No falls in past 3 months (0 pts) Confusion or Disorientation No (0 pts) Intoxicated or Sedated Yes (3 pts) Impaired Gait No (0 pts) Mobility Assist Device Used No (0 pt) Altered Elimination No (0 pt) Score/Fall Risk Level 3 or more points = High Risk Oriented to surroundings, Maintained a safe environment, Educated pt \\T\\ family on fall prevention, incl call for assistance when getting out of bed, Assessed \\T\\ reinforced patient's understanding of fall precautions, Hourly rounding (assess needs \\T\\ fall precautionary measures) done. Abuse screen: Denies threats or abuse. Nutritional screening: No deficits noted. Tuberculosis screening: No symptoms or risk factors identified. Assessment: 00:56 General: Appears uncomfortable, unkempt, Behavior is cooperative, appropriate for age, dd2 anxious, Smells of alcohol. Pain: Complains of pain in abdomen Pain does not radiate. Pain currently is 6 out of 10 on a pain scale. Quality of pain is described as stabbing. Neuro: Level of Consciousness is awake, alert, obeys commands, Oriented to person, place, time, situation, Appropriate for age. Cardiovascular: No deficits noted. Denies chest pain, Patient's skin is warm and dry. Respiratory: No deficits noted. Airway is patent Respiratory effort is even, unlabored, Respiratory pattern is regular, symmetrical. GI: Abdomen is non-distended, Bowel sounds present X 4 quads. Abdomen is tender to palpation in umbilical area Reports epigastric pain, intolerance of fluids, nausea. : No deficits noted. No signs and/or symptoms were reported regarding the genitourinary system. EENT: No deficits noted. No signs and/or symptoms were reported regarding the EENT system. Derm: No deficits noted. No signs and/or symptoms reported regarding the dermatologic system. Musculoskeletal: No deficits noted. No signs and/or symptoms reported regarding the musculoskeletal system. Circulation, motion, and sensation intact. Range of motion: intact in all extremities. Psych: 00:59 [place] Suicide Severity Screening: In the past month, have you wished you were dd2 or wished you could go to sleep and not wake up? Patient responds "No." "In the past month, have you actually had any thoughts of killing yourself?" Patient responds "no." "In your lifetime, have you ever done anything, started to do anything, or prepared to do anything to end your life?" Patient responds "no.". Subjective: Patient's mood is Delusions are denied, Hallucinations are denied Having thoughts of DENIES. Objective: Patient is cooperative, Speech is normal, Affect is appropriate. Interventions: Urine collected and sent for urine drug test. Safety Checks: Door is open. Patient uses UNKNOWN Patient uses marijuana. Commitment: NONE. Vital Signs: 11/20 23:43 BP 135 / 74; Pulse 86; Resp 16; Temp 98.4; Pulse Ox 97% on R/A; Weight 99.79 kg; Pain dd2 07/22; 11/21 01:01 BP 138 / 77; Pulse 74; Resp 16; Pulse Ox 98% on R/A; dd2 01:43 BP 132 / 73; Pulse 83; Resp 16; Temp 98.3; Pulse Ox 97% on R/A; dd2 11/20 23:43 Pain Scale: Adult dd2 [place] Coma Score: 00:56 Eye Response: spontaneous(4). Motor Response: obeys commands(6). Verbal Response: dd2 oriented(5). Total: 15. ED Course: 11/20 23:16 Patient arrived in ED. jj6 23:18 Reilly Salguero MD is Attending Physician. galina 23:32 WILFRIDO SCHAFER, BELLO is Primary Nurse. dd2 23:40 Acetaminophen Sent. dd2 23:40 Basic Metabolic Panel Sent. dd2 23:40 CBC with Diff Sent. dd2 23:40 ETOH Level Sent. dd2 23:40 Hepatic Function Sent. dd2 23:40 PT-INR Sent. dd2 23:40 Ptt, Activated Sent. dd2 23:40 Salicylate Sent. dd2 23:47 Triage completed. dd2 23:47 Arm band placed on right wrist. Patient placed in an exam room, on a stretcher, on dd2 pulse oximetry. 11/21 00:20 Urinalysis w/ reflexes Sent. dd2 00:20 Urine Drug Screen Sent. dd2 00:27 EKG done, by ED staff, reviewed by Reilly Salguero MD. sa1 00:56 No provider procedures requiring assistance completed. Maintain EMS IV. Dressing dd2 intact. Good blood return noted. Site clean \\T\\ dry. Gauge \\T\\ site: 20 RT FOREARM. Flushed with 10 mL NS IV is intact, with fluids infusing freely, with good blood return. Patient maintains SpO2 saturation greater than 95% on room air. 00:56 Patient has correct armband on for positive identification. Bed in low position. Call dd2 light in reach. Side rails up X2. Client placed on continuous cardiac and pulse oximetry monitoring. NIBP monitoring applied. party supply specialist on. Door closed. Noise minimized. Warm blanket given. Pillow given. Verbal reassurance given. 01:43 IV discontinued, intact, bleeding controlled, No redness/swelling at site. Pressure dd2 dressing applied. 01:43 Provided Education on: D/C EDUCATION. dd2 Administered Medications: 00:07 Drug: Thiamine IV 100 mg IV at bolus once Route: IV; Rate: bolus; Site: right forearm; dd2 00:10 Follow up: IV Status: Completed infusion; IV Intake: 1ml dd2 00:22 Follow up: Response: No adverse reaction dd2 00:08 Drug: NS 0.9% IV 1000 ml IV at 1000 ml once; to be given as a bolus over 60 minutes dd2 Route: IV; Rate: 1000 ml; Site: right forearm; 00:23 Follow up: Response: No adverse reaction dd2 01:04 Follow up: IV Status: Completed infusion; IV Intake: 1000ml dd2 Medication: 00:56 VIS not applicable for this client. dd2 Intake: 00:10 IV: 1ml; Total: 1ml. dd2 01:04 IV: 1000ml; Total: 1001ml. dd2 Outcome: 00:48 Discharge ordered by . galina 01:43 Discharged to home ambulatory, dd2 01:43 Condition: stable 01:43 Discharge instructions given to patient, Instructed on discharge instructions, follow up and referral plans. no drinking with medication, medication usage, Demonstrated understanding of instructions, follow-up care, medications, Prescriptions given X 3, 01:44 Patient left the ED. dd2 Signatures: Reilly Salguero MD MD cha Jeffries, Jennifer jjose david6 [place] Wilson1 WILFRIDO SCHAFER, RN RN dd2
--- NOTE | 2024-11-21 00:49 | EDPHYS ---
Physician Documentation [facility] Name: Joe Campo Age: 54 yrs Sex: Male : 1970 Arrival Date: 11/20/2024 Time: 23:15 Bed 19 Private MD: ED Physician Reilly Salguero HPI: 11/20 23:20 This 54 yrs old Male presents to ER via Unassigned with complaints of Anxiety.galina 23:20 The patient presents to the emergency department with anxiety, a history of substance galina abuse. Onset: The symptoms/episode began/occurred 3 day(s) ago. Past psychiatric history: Prior diagnosis: depression, ANXIETY. 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 Associated signs and symptoms: The patient has no apparent associated signs or symptoms. Severity of symptoms: At their worst the symptoms were mild moderate in the emergency department the symptoms are unchanged. The patient has experienced similar episodes in the past, several times. Historical: - Allergies: 23:47 Paxil; dd2 23:47 Zoloft; dd2 - Home Meds: 23:47 clonazepam 1 mg Oral tablet 2 times per day [Active]; dd2 - PMHx: 23:47 Anxiety; dd2 - Immunization history:: Adult Immunizations unknown. - Infectious Disease History:: Denies. - Family history:: not pertinent. - Social history:: Smoking status: Patient reports the use of cigarette tobacco products. ROS: 23:23 Constitutional: Negative for fever, chills, and weight loss, Eyes: Negative for injury, galina pain, redness, and discharge, ENT: Negative for injury, pain, and discharge, Neck: Negative for injury, pain, and swelling, Respiratory: Negative for shortness of breath, cough, wheezing, and pleuritic chest pain, Abdomen/GI: Negative for abdominal pain, nausea, vomiting, diarrhea, and constipation, Back: Negative for injury and pain, : Negative for injury, bleeding, discharge, and swelling, MS/Extremity: Negative for injury and deformity, Skin: Negative for injury, rash, and discoloration, Neuro: Negative for headache, weakness, numbness, tingling, and seizure, Psych: Negative for depression, anxiety, suicide ideation, homicidal ideation, and hallucinations, Allergy/Immunology: Negative for hives, rash, and allergies, Endocrine: Negative for neck swelling, polydipsia, polyuria, polyphagia, and marked weight changes, Hematologic/Lymphatic: Negative for swollen nodes, abnormal bleeding, and unusual bruising, 23:23 Cardiovascular: Positive for palpitations, 23:23 Abdomen/GI: Positive for abdominal pain, Exam: 23:23 Constitutional: This is a well developed, well nourished patient who is awake, alert, galina and in no acute distress. Head/Face: Normocephalic, atraumatic. Eyes: Pupils equal round and reactive to light, extra-ocular motions intact. Lids and lashes normal. Conjunctiva and sclera are non-icteric and not injected. Cornea within normal limits. Periorbital areas with no swelling, redness, or edema. ENT: Nares patent. No nasal discharge, no septal abnormalities noted. Tympanic membranes are normal and external auditory canals are clear. Oropharynx with no redness, swelling, or masses, exudates, or evidence of obstruction, uvula midline. Mucous membranes moist. Neck: Trachea midline, no thyromegaly or masses palpated, and no cervical lymphadenopathy. Supple, full range of motion without nuchal rigidity, or vertebral point tenderness. No Meningismus. Chest/axilla: Normal chest wall appearance and motion. Nontender with no deformity. No lesions are appreciated. Cardiovascular: Regular rate and rhythm with a normal S1 and S2. No gallops, murmurs, or rubs. Normal PMI, no JVD. No pulse deficits. Respiratory: Lungs have equal breath sounds bilaterally, clear to auscultation and percussion. No rales, rhonchi or wheezes noted. No increased work of breathing, no retractions or nasal flaring. Abdomen/GI: Soft, non-tender, with normal bowel sounds. No distension or tympany. No guarding or rebound. No evidence of tenderness throughout. Back: No spinal tenderness. No costovertebral tenderness. Full range of motion. Skin: Warm, dry with normal turgor. Normal color with no rashes, no lesions, and no evidence of cellulitis. MS/ Extremity: Pulses equal, no cyanosis. Neurovascular intact. Full, normal range of motion., bilateral aka Neuro: Awake and alert, GCS 15, oriented to person, place, time, and situation. Cranial nerves II-XII grossly intact. Motor strength 5/5 in all extremities. Sensory grossly intact. Cerebellar exam normal. Normal gait. Psych: Awake, alert, with orientation to person, place and time. Behavior, mood, and affect are within normal limits. 23:23 : Bladder: is normal, Rectal exam: is normal, Sexual behavior: the patient is not sexually active, 23:23 Musculoskeletal/extremity: DVT Exam: No signs of deep vein thrombosis. no pain, no swelling, no tenderness, negative Homans' sign noted on exam, no appreciated bluish discoloration, no erythema, no increased warmth, 11/21 00:27 ECG was reviewed by the Attending Physician. galina Vital Signs: 11/20 23:43 BP 135 / 74; Pulse 86; Resp 16; Temp 98.4; Pulse Ox 97% on R/A; Weight 99.79 kg; Pain dd2 1010; 02 01:01 BP 138 / 77; Pulse 74; Resp 16; Pulse Ox 98% on R/A; dd2 01:43 BP 132 / 73; Pulse 83; Resp 16; Temp 98.3; Pulse Ox 97% on R/A; dd2 02 23:43 Pain Scale: Adult dd2 [place] Coma Score: 00:56 Eye Response: spontaneous(4). Motor Response: obeys commands(6). Verbal Response: dd2 oriented(5). Total: 15. MDM: 11/20 23:18 Medical Screening Exam initiated galina 23:25 Differential diagnosis: drug withdrawal. acute psychotic break, depression, psychosis galina secondary to non-compliance. Data reviewed: vital signs, nurses notes, lab test result(s), EKG. Consideration of Admission/Observation Escalation of care including admission/observation considered. I considered the following discharge prescriptions or medication management in the emergency department Medications were administered in the Emergency Department. See MAR. Independent interpretation of the following test(s) in the Emergency Department EKG: See my EKG interpretation above. Test considered but Not performed: CT: NO CT BRAIN. 11/20 23:23 Order name: Acetaminophen; Complete Time: 00:46 galina 11/20 23:23 Order name: Basic Metabolic Panel; Complete Time: 00:46 galina 11/20 23:23 Order name: CBC with Diff; Complete Time: 00:27 galina 11/20 23:23 Order name: ETOH Level; Complete Time: 00:46 galina 11/20 23:23 Order name: Hepatic Function; Complete Time: 00:46 [facility] 11/20 23:23 Order name: PT-INR; Complete Time: 00:27 [facility] 11/20 23:23 Order name: Ptt, Activated; Complete Time: 00:27 [facility] 11/20 23:23 Order name: Salicylate; Complete Time: 00:46 [facility] 11/20 23:23 Order name: Urinalysis w/ reflexes [facility] 11/20 23:23 Order name: Urine Drug Screen [facility] 11/20 23:19 Order name: EKG; Complete Time: 23:20 [facility] 11/20 23:19 Order name: EKG - Nurse/Tech; Complete Time: 01:02 [facility] 11/20 23:19 Order name: IV Saline Lock; Complete Time: 23:40 [facility] 11/20 23:19 Order name: Labs collected and sent; Complete Time: 23:40 [facility] 11/20 23:19 Order name: Suicide Screening ([place]); Complete Time: 01:03 [facility] EC/09 00:27 Rate is 79 beats/min. Rhythm is regular. QRS [place] is Normal. CT interval is normal. QRS galina interval is normal. QT interval is normal. No Q waves. T waves are Normal. No ST changes noted. Clinical impression: Normal ECG and No evidence of ischemia. Interpreted by me. Reviewed by me. Administered Medications: 00:07 Drug: Thiamine IV 100 mg IV at bolus once Route: IV; Rate: bolus; Site: right forearm; dd2 00:10 Follow up: IV Status: Completed infusion; IV Intake: 1ml dd2 00:22 Follow up: Response: No adverse reaction dd2 00:08 Drug: NS 0.9% IV 1000 ml IV at 1000 ml once; to be given as a bolus over 60 minutes dd2 Route: IV; Rate: 1000 ml; Site: right forearm; 00:23 Follow up: Response: No adverse reaction dd2 01:04 Follow up: IV Status: Completed infusion; IV Intake: 1000ml dd2 Disposition Summary: 11/21/24 00:48 Discharge Ordered Notes: Location: Home galina Problem: new galina Symptoms: have improved galina Condition: Stable galina Diagnosis - Anxiety disorder, unspecified galina - Adjustment disorder with anxiety galina - Alcohol abuse galina - Alcohol abuse with intoxication galina Followup: galina - With: Private Physician - When: 2 - 3 days - Reason: Recheck today's complaints, Continuance of care, Re-evaluation by your physician Discharge Instructions: - Discharge Summary Sheet galina - Alcohol Intoxication galina - Panic Attack galina - Alcohol Use Disorder galina - Alcohol Abuse and Nutrition galina - Panic Attack, [id number] galina - Managing Anxiety, Adult [facility] Forms: - Medication Reconciliation Form galina - Antibiotic Education galina - Prescription Opioid Use galina - Patient Portal Instructions [facility] - Leadership Thank You Letter [facility] Prescriptions: - Hydroxyzine HCl 25 mg Oral Tablet - take 1 tablet ORAL route every 6 hours As needed; 30 tablet; Refills: 0, [facility] Product Selection Permitted - Klonopin 0.5 mg Oral tablet - take 1 tablet ORAL route every 12 hours As needed; 10 tablet; Refills: 0, [facility] Product Selection Permitted - Pepcid 20 mg Oral tablet - take 1 tablet ORAL route every 12 hours for 21 days; 42 tablet; Refills: 0, [facility] Product Selection Permitted Signatures: Dispatcher [employer] EDReilly Butt MD MD cha DAVIS, DIANA, RN RN dd2 Corrections: (The following items were deleted from the chart) 11/20 23:20 23:20 ACETAMINOPHEN+C.LAB.BRZ ordered. EDMS EDMS 23:20 23:20 BASIC METABOLIC PANEL+C.LAB.BRZ ordered. EDMS EDMS 23:20 23:20 CBC+H.LAB.BRZ ordered. EDMS EDMS 23:20 23:20 ETHANOL+C.LAB.BRZ ordered. EDMS EDMS 23:20 23:20 HEPATIC FUNCTION+C.LAB.BRZ ordered. EDMS EDMS 23:20 23:20 PROTIME (+INR)+COAG.LAB.BRZ ordered. EDMS EDMS 23:20 23:20 PTT, ACTIVATED+COAG.LAB.BRZ ordered. EDMS EDMS 23:20 23:20 SALICYLATE+C.LAB.BRZ ordered. EDMS EDMS 23:20 23:20 Urinalysis+U.LAB.BRZ ordered. EDMS EDMS 23:20 23:20 URINE DRUG SCREEN+UC.LAB.BRZ ordered. EDMS EDMS 23:23 23:23 ACETAMINOPHEN+C.LAB.BRZ ordered. EDMS EDMS 23:23 23:23 BASIC METABOLIC PANEL+C.LAB.BRZ ordered. EDMS EDMS 23:23 23:23 CBC+H.LAB.BRZ ordered. EDMS EDMS 23:23 23:23 ETHANOL+C.LAB.BRZ ordered. EDMS EDMS 23:23 23:23 HEPATIC FUNCTION+C.LAB.BRZ ordered. EDMS EDMS 23:23 23:23 PROTIME (+INR)+COAG.LAB.BRZ ordered. EDMS EDMS 23:23 23:23 PTT, ACTIVATED+COAG.LAB.BRZ ordered. EDMS EDMS 23:23 23:23 SALICYLATE+C.LAB.BRZ ordered. EDMS EDMS 23:23 23:23 Urinalysis+U.LAB.BRZ ordered. EDMS EDMS 23:23 23:23 URINE DRUG SCREEN+UC.LAB.BRZ ordered. EDMS EDMS
[2024-11-21 01:04] LABS: Specific Gravity 1.005 (1.005-1.030); Urine Bilirubin NEGATIVE (Negative); Urine Blood Negative (Negative); Urine Clarity Clear (Clear); Urine Color Light-Yellow (Yellow); Urine Glucose NEGATIVE (Negative); Urine Ketones TRACE (Negative); Urine Microscopic Reflex YN NO UMIC; Urine Nitrite NEGATIVE (Negative); Urine Protein NEGATIVE (Negative); Urine Urobilinogen Normal (Normal); Urine pH 6.5 (5.0-7.0)
[2024-11-21 01:34] LABS: Barbiturates NEGATIVE (NEGATIVE); Benzodiazepines NEGATIVE (NEGATIVE); Cocaine NEGATIVE (NEGATIVE); METHAMPHETAM NEGATIVE (NEGATIVE); Methadone NEGATIVE (NEGATIVE); Opiates NEGATIVE (NEGATIVE); Phencyclidine NEGATIVE (NEGATIVE); THC Cannibis POSITIVE (NEGATIVE)
[2024-11-21 02:06] VITALS: BP 132/73; TEMP 98.3; O2SAT 97
--- NOTE | 2024-11-23 12:49 | EKG ---
Test Date: 2024-11-21 Test Time: 00:25:05 [employer] Ice Maker: MEASUREMENT RESULTS: Intervals: Rate: 79 AR: 174 QRSD: 80 QT: 384 QTc: 440 [place]: P: 50 AR: 174 QRS: 40 T: 60 INTERPRETIVE STATEMENTS: Normal sinus rhythm Normal ECG Compared to ECG 05/05/2023 02:47:06 No significant changes Electronically Signed On 11-23-24 12:43:[address] LANDSCAPE ARCHITECT by Rinku Somers
== END 2024-11-21 01:44 | disposition home or self-care (01) ==
LOC: ER 23:15
DX: F43.22 Adjustment disorder with anxiety (principal); F10.129 Alcohol abuse with intoxication, unspecified; Z72.0 Tobacco use
CPT/HCPCS: 36415; 80048; 80076; 80143; 80179; 80307; 81003; 82077; 85025; 85610; 85730; 93005; 96361; 96374; 99285; J3411; J7030

== ENCOUNTER 2025-07-15 20:18 | Emergency (ER) | payer OTHER, SELFPAY ==
--- OUTSIDE RECORDS SUMMARY | 2025-07-15 20:41 | XMS REPORT | Continuity of Care Document ---
Author Name Unknown Address [address] [facility] [address] [place] [address] [facility] [place] Address [address] [facility] [address] [place] [address] Care Team Providers Care School Treasurer Name Role Phone LUIS IBRAHIM Attending Clinician Unavailable CHIP TARANGO Attending Clinician Unavailable ELAYNE CONNOR Attending Clinician JESSICA Grullon Attending Clinician Unavailabl e [id number] Attending Clinician Unavailable Payers Payer Name Policy Type Policy Number Effective Date Expirati on Date Source [facility] JAYLYNAKILAH [facility] COPAY FOCUS 9 [id number] 2024 00:00:00 [employer]ET[employer] MP [facility] S[facility] 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 [facility] Problem Active 2013-10 00:00: 00 2022-06-28 04:31:16 Kang Gilliland Heat exhaustion (disorder) Heat exhaustion (disorder) Active 07/26/2014 Problem 06/28/2022 Data migrated from [employer] on 03/14/15. Medical Group Problem Active 2013-10 00:00: 00 2022-06-28 04:31:16 Kang Gilliland Low back pain (disorder) Low back pain (disorder) Active 07/26/2014 Problem 06/28/2022 Data migrated from [employer] on 03/14/15. Medical Group Problem Active 2013-10 00:00: 00 2022-06-28 04:31:16 Kang Gilliland Neck pain (finding) Neck pain (finding) Active 07/26/2014 Problem 06/28/2022 Data migrated from [employer] on 03/14/15. Medical Group Problem Active 2013-10 0- 00:00: 00 2022-06-28 04:31:16 Kang Gilliland Long-term drug therapy (procedure ) Long-term drug therapy (procedure ) Active 02/04/2014 Problem 06/28/2022 Data migrated from [employer] on 03/14/15. Medical Group Problem Active 02-04 00:00: 00 2022-06-28 04:31:16 Memmarry Gilliland Anxiety disorder (disorder) Anxiety disorder (disorder) Active 10/12/2013 Problem 06/28/2022 Data migrated from [employer] on 03/14/15. Medical Group Problem Active 2012-10 00:00: 00 2022-06-28 04:31:16 Memmarry Gilliland Gastroesop hageal reflux disease (disorder) Gastroesop hageal reflux disease (disorder) Active 10/12/2013 Problem 06/28/2022 Data migrated from [employer] on 03/14/15. Medical Group Problem Active 2012-10 00:00: 00 2022-06-28 04:31:16 Kang Gilliland Agoraphobi a (disorder) Agoraphobi a (disorder) Active Problem 06/28/2022 Medical Group Problem Active 2022-06-28 04:31:16 Kang Gilliland Body mass index index 25-29 - overweight (finding) Body mass index index 25-29 - overweight (finding) Active Problem 06/28/2022 Medical Group Problem Active 2022-06-28 04:31:16 Memoria heidi Gilliland Lumbago with sciatica (disorder) Lumbago with sciatica (disorder) Active Problem 06/28/2022 Medical Group Problem Active 2022-06-28 04:31:16 Memmarry Gilliland Panic attack (finding) Panic attack (finding) Active Problem 06/28/2022 Medical Group Problem Active 2022-06-28 04:31:16 Memoria heidi Gilliland Snuff user (finding) Snuff user (finding) Active Problem 06/28/2022 Medical Group Problem Active 2022-06-28 04:31:16 Kang Gilliland Lactose intoleranc e (disorder) Lactose intoleranc e (disorder) Active Problem 06/28/2022 Medical Group Problem Active 2022-06-28 04:31:16 Kang Gilliland History of Past Illness Condition Name Condition Details Condition Category Status Onset Date Resolution Date Last Treatment Date Treating Clinician Comments Source Agoraphobi a, unspecifie d Agoraphobi a, unspecifie d 06/25/2022 06/28/2022 Medical Group Problem 9-13 17:00: 00 2022-06-28 04:31:16 2022-06-28 04:31:16 Kang Gilliland 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 Other usp (current) drug therapy 10/02/2021 Medical Group Problem 2020-10 16:54: 00 2021-10-05 02:38:57 2021-10-05 02:38:57 Kang Gilliland Allergies, Adverse Reactions, Alerts Allergy Name Allergy Type Status Severity Reaction(s) Onset Date Inactive Date Treating Clinician Comments Source sertrali ne<sup>1 </sup> sertrali ne<sup>1 </sup> Active 2012-10 06:00: 00 Kang Gilliland PARoxeti ne<sup>2 </sup> PARoxeti ne<sup>2 </sup> Active 2012-10 06:00: 00 Kang Gilliland Paroxeti ne Mesylate Propensi ty to adverse reaction s Active Other 2012-10 00:00: 00 Other reaction( s): ItchingDa ta migrated from [employer] on 02/09/15. Originall y documente d as PAXIL.Jn a migrated from [employer] on 02/09/15. Originall y documente d as PAXIL. Jaylyn Seybold - Externa l Sertrali ne Propensi ty to adverse reaction s Active 2012-10 00:00: 00 Other reaction( s): ItchingDa ta migrated from [employer] on 02/09/15. Originall y documente d as ZOLOFT.Joey vasquez migrated from [facility] on 02/09/15. Originall y documente d as ZOLOFT. Jaylyn gordon Social History Social Habit Start Date Stop Date Quantity Comments Source Gender identity Gloria galicia Akilah - External Sexual orientation Kanika monson Akilah - External Alcohol intake 2023-02-19 00:00:00 2023-02-19 00:00:00 Ex-drinker (finding) Jaylyn Isbell - External History of Social function 2023-02-19 00:00:00 2023-02-19 00:00:00 Jaylyn Isbell - External Tobacco use and exposure 2023-02-19 00:00:00 2023-02-19 00:00:00 Smokeless tobacco non-user Jaylyn Isbell - External Sex Assigned At 1970 00:00:00 1970 00:00:00 Jaylyn Isbell - External Smoking Status Start Date Stop Date Source Social History [facility] Medications Ordered Medication Name Filled Medication Name Start Date Stop Date Current Medication? 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, Height, 99.659, kg, 10/02/21 10: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, Weight [facility] clonazePAM 1 mg oral tablet 2020-10 19:20: 00 Yes 1 mg = 1 tab, PO, BID, PRN Anxiety, Needs FU appt, # 60 tab, 0 Refill(s), [facility], Pharmacy: [facility], 175.26, cm, 03/05/21 15:43:00 CDT, Height, 95.625, kg, 03/05/21 15:43:00 CDT, Weight [facility] clonazePAM 1 mg oral tablet 03-05 20:53: 00 Yes 1 mg = 1 tab, PO, BID, PRN Anxiety, # 60 tab, 5 Refill(s), [facility], Pharmacy: [facility], 175.26, cm, 03/05/21 15:43:00 CDT, Height, 95.625, kg, 03/05/21 15:43:00 CDT, Weight [facility] [place] clonazePAM 1 mg oral tablet 11-06 18:55: 00 Yes 1 mg = 1 tab, PO, BID, PRN Anxiety, # 10 tab, 0 Refill(s), [facility], Pharmacy: [facility], 175.26, cm, 09/13/20 8:50:00 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, Height, 94.602, kg, 09/13/20 8:50:00 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, Weight [facility] clonazePAM 1 mg oral tablet 2019-10 2- 15:40: 00 Yes 1 mg = 1 tab, PO, BID, PRN Anxiety, Needs Appt., # 60 tab, 5 Refill(s), [facility], Pharmacy: [facility], 175.26, cm, 09/13/20 8:50:00 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, Height, 94.602, kg, 09/13/20 8:50:00 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, Weight [facility] clonazePAM 1 mg oral tablet 2019-10 15:38: 00 Yes 1 mg = 1 tab, PO, BID, PRN Anxiety, Needs Appt., # 28 tab, 0 Refill(s), [facility], Pharmacy: [facility], 176.53, cm, 04/14/19 9:12:00 CDT, Height, 97.727, kg, 04/14/19 9:12:00 CDT, Weight [facility] [place] clonazePAM 1 mg oral tablet 2019-10 17:04: 00 Yes 1 mg = 1 tab, PO, BID, PRN Anxiety, Needs Appt., # 60 tab, 5 Refill(s), [facility], Pharmacy: [id number], 176.53, cm, 04/14/19 9:12:00 CDT, Height, 97.727, kg, 04/14/19 9:12:00 CDT, Weight [facility] clonazePAM 1 mg oral tablet 4-06 13:28: 00 Yes 1 mg = 1 tab, PO, BID, PRN Anxiety, Needs Appt., # 60 tab, 5 Refill(s), [facility], Pharmacy: [id number] [place] clonazePAM 1 mg oral tablet 3-12 21:33: 00 Yes 1 mg = 1 tab, PO, BID, PRN Anxiety, Needs Appt., # 30 tab, 0 Refill(s), [facility], Pharmacy: [facility] [place] clonazePAM 1 mg oral tablet 1- 04:51: 00 Yes 1 mg = 1 tab, PO, BID, PRN Anxiety, # 60 tab, 0 Refill(s), [facility], Pharmacy: [facility] Kang Peresann clonazePAM 1 mg oral tablet 7 14:36: 55 Yes 1 mg = 1 tab, PO, BID, PRN Anxiety, # 60 tab, 5 Refill(s), [facility] Kang gordon [facility] clonazePAM 1 mg oral tablet 6 21:00: 00 Yes 1 mg = 1 tab, PO, BID, # 28 tab, 0 Refill(s) [facility] [place] clonazePAM 1 mg oral tablet 16 17:28: 00 Yes 1 mg = 1 tab, PO, BID, # 60 tab, 0 Refill(s) [facility] [place] clonazePAM 1 mg oral tablet 01-22 15:27: 00 Yes 1 mg = 1 tab, PO, BID, # 60 tab, 0 Refill(s) Kang l [facility] clonazePAM 1 mg oral tablet 2017-10 0 19:08: 33 No 1 mg = 1 tab, PO, BID, # 60 tab, 5 Refill(s) Kang l [place] clonazePAM 1 mg oral tablet 13 20:34: 26 Yes 1 mg = 1 tab, PO, BID, # 60 tab, 5 Refill(s) Mem[facility]ry l [place] clonazePAM 1 mg oral tablet 124 22:21: 59 No 1 mg = 1 tab, PO, BID, # 60 tab, 1 Refill(s) Kang Gilliland Vital Signs Vital Name Observation Time Observation Value Comments S ource Body temperature 2023-02-19 16:52:00 36.67 Miladys Jaylyn Isbell - External Respiratory rate 2023-02-19 16:52:00 18 /min Jaylyn Isbell - External Body height 2023-02-19 16:52:00 180.3 cm Gloria Isbell - External Body weight 2023-02-19 16:52:00 95.255 kg Gloria Isbell - External BMI 2023-02-19 16:52:00 29.29 kg/m2 Gloria Isbell - External Systolic blood pressure 2023-02-19 16:52:00 120 mm[Hg] Jaylyn Seybo ld - External Diastolic blood pressure 2023-02-19 16:52:00 78 mm[Hg] Jaylyn Ortega ld - External Heart rate 2023-02-19 16:52:00 87 /min Farhana Isbell - External Temperature Oral (F) 2022-06-25 19:52:00 99.3 F [facility] Heart Rate 2022-06-25 19:52:00 [facility] Systolic (mm Hg) 2022-06-25 19:52:00 [facility] [place] Diastolic (mm Hg) 2022-06-25 19:52:00 [facility] Weight 2022-06-25 19:52:00 [facility] [place] Diastolic (mm Hg) 2021-10-02 16:29:00 [facility] Height 2021-10-02 16:29:00 175.26 cm [facility] Weight 2021-10-02 16:29:00 [facility] BMI Calculated 2021-10-02 16:29:00 [facility] Temperature Oral (F) 2021-10-02 16:29:00 98.3 F [facility] Heart Rate 2021-10-02 16:29:00 [facility] [place] Systolic (mm Hg) 2021-10-02 16:29:00 [facility] Systolic (mm Hg) 2021-03-05 20:43:00 [facility] [place] Diastolic (mm Hg) 2021-03-05 20:43:00 [facility] [place] Heart Rate 2021-03-05 20:43:00 [facility] [place] Temperature Oral (F) 2021-03-05 20:43:00 98.2 F [facility] Height 2021-03-05 20:43:00 175.26 cm [facility] Weight 2021-03-05 20:43:00 [facility] [place] BMI Calculated 2021-03-05 20:43:00 [facility] Systolic (mm Hg) 2020-09-13 15:38:00 [facility] Diastolic (mm Hg) 2020-09-13 15:38:00 [facility] [place] Systolic (mm Hg) 2020-09-13 14:50:00 [facility] Diastolic (mm Hg) 2020-09-13 14:50:00 [facility] Heart Rate 2020-09-13 14:50:00 [facility] Temperature Oral (F) 2020-09-13 14:50:00 98.8 F [facility] [place] Height 2020-09-13 14:50:00 175.26 cm [facility] Weight 2020-09-13 14:50:00 [facility] [place] BMI Calculated 2020-09-13 14:50:00 [facility] Weight 2019-04-14 14:12:00 [facility] [place] Height 2019-04-14 14:12:00 176.53 cm [facility] [place] Systolic (mm Hg) 2019-04-14 14:12:00 [facility] [place] Diastolic (mm Hg) 2019-04-14 14:12:00 [facility] Temperature Oral (F) 2019-04-14 14:12:00 98.6 F [facility] Heart Rate 2019-04-14 14:12:00 [facility] [place] BMI Calculated 2019-04-14 14:12:00 [facility] Weight 2018-08-04 18:39:00 [facility] [place] BMI Calculated 2018-08-04 18:39:00 [facility] Height 2018-08-04 18:39:00 177.8 cm [facility] Heart Rate 2018-08-04 18:39:00 [facility] [place] Temperature Oral (F) 2018-08-04 18:39:00 98.0 F [facility] Systolic (mm Hg) 2018-08-04 18:39:00 [facility] [place] Diastolic (mm Hg) 2018-08-04 18:39:00 [facility] Weight 2018-01-23 20:20:00 [facility] [place] Systolic (mm Hg) 2018-01-23 20:20:00 [facility] Diastolic (mm Hg) 2018-01-23 20:20:00 [facility] [place] Temperature Oral (F) 2018-01-23 20:20:00 99.1 F [facility] [place] Heart Rate 2018-01-23 20:20:00 [facility] Encounters Start Date/Time End Date/Time Encounter Type Admission Type Attending [facility] Care Department Encounter ID Source 2024-11-18 14:30:00 2024-11-18 14:30:00 Outpatient LUIS IBRAHIM [id number] Jaylyn [facility]ty[facility] 2024-11-18 00:00:00 2024-11-18 00:00:00 Outpatient LUIS IBRAHIM JAYLYN [id number] Jaylyn [facility] 2024-11-16 10:00:00 2024-11-16 10:00:00 Outpatient CHIP TARANGO JAYLYN ARCE [id number] [facility] 2024-11-11 00:00:00 2024-11-11 00:00:00 Outpatient CHIP TARANGO JAYLYN [id number] [facility] 2024-11-11 00:00:00 2024-11-11 00:00:00 Outpatient NIKOLASELAYNE JAYLYN ARCE [id number] [facility] 2024-11-09 00:00:00 2024-11-09 00:00:00 Outpatient JETT JESSICA JAYLYN ARCE [id number] [facility] 2024-10-27 00:00:00 2024-10-27 00:00:00 Outpatient JETT JESSICA JAYLYN ARCE [id number] [facility] 2024-05-07 09:45:00 2024-05-07 09:45:00 Outpatient JETT, JESSICA JAYLYN ARCE [id number] Jay[facility] 2024-04-13 08:55:00 2024-04-13 08:55:00 Outpatient [id number] JAYLYN ARCE [id number] [facility] 2024-04-13 00:00:00 2024-04-13 00:00:00 Outpatient SANTOSH FRAUSTOTUTU JAYLYN ARCE [id number] [facility] 2024-01-20 00:00:00 2024-01-20 00:00:00 Outpatient JESSICA FRAUSTO [id number] [facility] 2023-12-21 00:00:00 2023-12-21 00:00:00 Outpatient JESSICA FRAUSTO [id number] [facility] 2023-11-28 00:00:00 2023-11-28 00:00:00 Outpatient JESSICA FRAUSTO [id number] [facility] 2023-11-21 11:45:00 2023-11-21 11:45:00 Outpatient FRAUSTOJESSICA JAYLYN ARCE [id number] [facility] 2023-10-03 11:45:00 2023-10-03 11:45:00 Outpatient JESSICA FRAUSTO JAYLYN ARCE [id number] Jaylyn Isbell 2023-08-25 00:00:00 2023-08-25 00:00:00 Outpatient FRAUSTOJESSICA JAYLYN ARCE [id number] [facility] 2023-07-18 00:00:00 2023-07-18 00:00:00 Outpatient JETTJESSICA JAYLYN ARCE [id number] [facility] 2023-07-17 00:00:00 2023-07-17 00:00:00 Outpatient JETTJESSICA JAYLYN ARCE [id number] [facility] 2023-05-19 00:00:00 2023-05-19 00:00:00 Outpatient JETTSANTOSHTUTU ARCE [id number] Jaylyn [facility] 2023-04-23 00:00:00 2023-04-23 00:00:00 Outpatient JETTJESSICA JAYLYN ARCE [id number] Jay[facility] 2023-02-19 11:30:00 2023-02-19 11:30:00 Outpatient JETTJESSICA JAYLYN ARCE [id number] Jay[facility] 2023-02-13 16:30:00 2023-02-13 16:30:00 Outpatient ELAYNE CONNOR [id number] [facility] 2022-12-26 16:30:00 2022-12-26 16:30:00 Outpatient JETTSANTOSHTUTU ARCE [id number] Jaylyn [facility] 2022-11-29 14:45:00 2022-11-29 14:45:00 Outpatient CHIP TARANGO [id number] Jay[facility] 2022-06-25 20:00:00 2022-06-26 04:59:59 Outpatient nullFlavo r [facility] [id number] Kang Gilliland 2022-04-02 14:00:00 2022-04-02 14:00:00 Ambulatory Pre-Reg nullFlavo r [facility] [id number] Libbymarry heidi Gilliland 2022-03-25 16:35:43 2022-03-27 04:59:59 Phone Message nullFlavo r [facility] [id number] Libbymarry heidi Gilliland 2022-01-11 21:34:58 2022-01-13 04:59:59 Phone Message nullFlavo r [facility] [id number] Libbymarry heidi Gilliland 2021-10-02 17:00:00 2021-10-03 05:59:59 Outpatient nullFlavo r [facility] [place] [id number] Kang Gilliland 2021-09-26 16:00:00 2021-09-26 16:00:00 Ambulatory Pre-Reg nullFlavo r [facility] [id number] Kang Gilliland 2021-09-03 16:06:11 2021-09-05 05:59:59 Phone Message nullFlavo r [facility] [id number] Kang Gilliland 2021-03-05 20:40:00 2021-03-06 04:59:59 Outpatient nullFlavo r [facility] [id number] Kang Gilliland 2020-11-06 14:54:07 2020-11-08 05:59:59 Phone Message nullFlavo r [facility] [id number] Kang Gilliland 2020-10-09 20:11:47 2020-10-11 05:59:59 Phone Message nullFlavo r [facility] [place] [id number] Kang Gilliland 2020-09-13 15:20:00 2020-09-14 05:59:59 Outpatient nullFlavo r [facility] [place] [id number] Kang Gilliland 2020-09-01 15:11:57 2020-09-03 05:59:59 Phone Message nullFlavo r [facility] [id number] Kang Gilliland 2020-09-01 15:40:00 2020-09-01 15:40:00 Ambulatory Pre-Reg nullFlavo r [facility] [place] [id number] Kang Gilliland 2020-07-28 14:56:23 2020-07-30 04:59:59 Phone Message nullFlavo r [facility] [id number] Kang Gilliland 2020-01-17 13:00:00 2020-01-18 04:59:59 Outpatient nullFlavo r [facility] [place] [id number] Kang Gilliland 2019-12-23 16:05:37 2019-12-25 04:59:59 Phone Message nullFlavo r [facility] [id number] Kang Gilliland 2019-11-05 17:17:28 2019-11-07 05:59:59 Phone Message nullFlavo r [facility] [id number] Kang Gilliland 2019-04-14 14:00:00 2019-04-15 04:59:59 Outpatient nullFlavo r [facility] [id number] Kang Gilliland 2019-04-05 20:31:36 2019-04-07 04:59:59 Phone Message nullFlavo r [facility] [id number] Kang Gilliland 2019-02-25 14:35:19 2019-02-27 04:59:59 Phone Message nullFlavo r [facility] [id number] Kang Gilliland 2019-01-22 14:32:00 2019-01-24 04:59:59 Phone Message nullFlavo r [facility] [id number] Kang Gilliland 2018-08-04 19:20:00 2018-08-05 04:59:59 Outpatient nullFlavo r [facility] [id number] Kang Gilliland 2018-01-23 20:10:00 2018-01-24 04:59:59 Outpatient nullFlavo r [facility] [id number] Kang Gilliland 2018-01-22 15:01:00 2018-01-24 04:59:59 Phone Message nullFlavo r [facility] [id number] Kang Gilliland 2018-01-23 20:10:00 2018-01-23 20:10:00 Ambulatory Pre-Reg nullFlavo r [facility] [id number] Kang Gilliland 2017-11-05 22:15:00 2017-11-07 05:59:59 Phone Message nullFlavo r [facility] [id number] Libbymarry heidi Gilliland 2017-07-08 13:30:00 2017-07-08 13:30:00 Outpatient [facility] [id number] Libbymarry heidi Gilliland 2016-12-06 13:30:00 2016-12-06 13:30:00 Outpatient [facility] [id number] Kang Gilliland 2016-12-04 09:00:00 2016-12-04 09:00:00 Outpatient MHIE [facility] [id number] Kang Gilliland 2016-06-03 15:15:00 2016-06-03 15:15:00 Outpatient MHIE [facility] [id number] Kang Gilliland 2016-03-08 14:45:00 2016-03-08 14:45:00 Outpatient MHIE [facility] [id number] Kang Gilliland 2015-12-22 10:45:00 2015-12-22 10:45:00 Outpatient [facility] [id number] Kang Gilliland 2015-12-21 08:00:00 2015-12-21 08:00:00 Outpatient MHIE [facility] [id number] Kang Gilliland
[2025-07-15] MEDS ORDERED: DIAZEPAM 10 MG/2 ML INJ SYRINGE ONE ×2 (21:30→23:29)
[2025-07-15 21:37] LABS: Absolute Lymphocytes (CBC) 1.0 K/uL (0.7-4.9); Hematocrit 35.1 % (39.6-49.0); Hemoglobin 12.2 g/dL (13.6-17.9); MCH 36.1 pg (27.0-35.0); MCHC 34.9 g/dL (32.0-36.0); MCV 103.5 fL (80-100); MPV 8.7 fL (7.6-11.3); Nucleated RBC Absolute Count 0.0 (0-0); Nucleated Red Blood Cells % 0.0 % (0-0); RBC Red Blood Cell Count 3.39 M/uL (4.33-5.43); White Blood Count 10.60 thou/uL (4.3-10.9)
[2025-07-15 21:48] LABS: PT Prothrombin Time 16.8 SECONDS (10-13.0); PTT, Activated Partial Thromb 32.8 SECONDS (27.2-37.4); Protime INR 1.5
[2025-07-15 22:01] LABS: ALT/SGPT 73.0 U/L (16-61); AST/SGOT 183.0 U/L (15-37); Albumin 2.1 g/dL (3.4-5.0); Albumin/Globulin Ratio 0.4 (1.1-1.8); Alkaline Phosphatase 169.0 U/L (45-117); Anion Gap 13.4 mEq/L (5.0-15.0); BUN Blood Urea Nitrogen 5.0 mg/dL (7-18); Bilirubin Indirect, Calculated 5.2 mg/dL (0.2-0.8); Globulin 4.8 g/dL (2.3-3.5); Glucose Level 89.0 mg/dL (74-106); Lipase 22.0 U/L (13-75); Magnesium 2.1 mg/dL (1.6-2.4); NT PRO-BNP 85.0 pg/mL (<125); Potassium 4.4 mEq/L (3.5-5.1); Troponin High Sensitivity 6.2 pg/mL (<58.9)
--- NOTE | 2025-07-15 22:12 | RAD REPORT ---
EXAM: Chest Single View HISTORY: 55 years Male pain all over COMPARISON: 02/12/2023 FINDINGS: LUNGS/PLEURA: The lungs are clear. No pleural effusions or pneumothorax. No pulmonary edema. CARDIAC/MEDIASTINUM: The cardiac silhouette is within normal limits. UPPER ABDOMEN: No significant abnormality. BONES: No acute abnormality. LINES/TUBES/OTHER: N/A IMPRESSION: No evidence of acute cardiopulmonary disease. No significant change from prior.
--- NOTE | 2025-07-15 22:36 | RAD REPORT ---
EXAMINATION: Head C Spine Mpr Wo Con CLINICAL INDICATION: Male, 55 years old. fall, pain all over, abdomen bruising TECHNIQUE: Axial CT images from the skull base to the vertex without intravenous contrast. Axial CT i mages through the cervical spine were obtained without intravenous contrast. Sagittal and coronal reformatted images were created from the data set. Coronal and sagittal reformatted images were creat ed from the data set. One or more of the following dose reduction techniques were used: Automated exposure control, adjustment of the mA and/or kV according to patient size, and/or iterative reconstr uction. Unless otherwise specified, incidental findings do not require dedicated imaging follow-up. [id number]. COMPARISON: 01/02/2023 FINDINGS: Head: INTRACRANIAL: No acute intracranial hemorrhage. No acute large vascular territory infarct. No hydroce phalus. No mass effect or midline shift. No significant white matter disease.Moderate cerebral atrophy. VASCULATURE: No visualized abnormalities in the arteries or dural venous sinuses. SCALP/SKULL: No calvarial fracture identified. No acute soft tissue abnormality. SINUSES: The visualized paranasal sinuses are mostly clear. No significant mastoid fluid. Cervical spine: ALIGNMENT: The cervical spine has normal alignment without scoliosis or spondylolisthesis. BONE: Vertebral body heights are maintained. No aggressive osseous lesions. DEGENERATIVE: Multilevel cervical spondylosis with evidence of bilateral neural foraminal narrowing a t C5-6. No high grade central spinal stenosis. SOFT TISSUE: No significant abnormalities in the soft tissue of the neck. The visualized lung apices are clear. IMPRESSION: No acute intracranial abnormality. No acute fracture or traumatic malalignment of the cervical spine.
--- NOTE | 2025-07-15 22:46 | RAD REPORT ---
EXAM: Chest Abdomen Pelvis W Cont CLINICAL INDICATION: Male, 55 years FELL TECHNIQUE: CT chest, abdomen and pelvis was performed, with IV contrast, as per department protocol. Axial, sagittal and coronal reconstructions were obtained. One or more of the following dose reduction techniques were used: Automated exposure control, adjustment of the mA and/or kV according to the patient size, and/or iterative reconstruction. Unless otherwise specified, incidental findings do not require dedicated imaging follow-up. [id number]. COMPARISON: No prior exams FINDINGS: ---THORAX--- LOWER NECK AND CHEST WALL: Visualized thyroid gland and soft tissues are normal. MEDIASTINUM AND LYMPH NODES: No mediastinal mass or fluid collection. Normal size mediastinal, hilar, and axillary lymph nodes. Mild distal esophageal thickening. THORACIC AORTA: No thoracic aortic aneurysm. PULMONARY ARTERIES: Caliber is within normal limits. HEART: Normal heart size. No coronary calcifications. No significant pericardial effusion. LUNGS AND AIRWAYS: Airways are clear. No evidence of airspace or interstitial process. No suspicious and/or stable pulmonary nodules. PLEURA: No pleural effusion. No pneumothorax. ---ABDOMEN/PELVIS--- UPPER GI: No significant abnormality. LIVER: Heterogeneous appearance of the liver with steatosis. GALLBLADDER/BILE DUCTS: Distended gallbladder.? PANCREAS: No mass, ductal dilation, or nataliia-pancreatic fluid. SPLEEN: Unremarkable. ADRENALS: No adrenal masses. KIDNEYS AND URETERS: No hydronephrosis.No suspicious renal mass.Nonobstructing renal calculi. No uret eral calculi. ABDOMINAL AORTA AND OTHER VESSELS: Mild atherosclerotic changes. Recanalized umbilical vein. PERITONEUM: No abnormal free fluid. No free air. LYMPH NODES: No pathologic lymphadenopathy. ABDOMINAL WALL: Fat-containing left inguinal hernia. SMALL BOWEL/COLON: Small bowel has normal course and caliber. No colonic wall thickening or pericolon ic inflammatory changes. Polypoid lesion in the rectum measuring 18 mm Moderate diverticulosis without diverticulitis. URINARY BLADDER: Underdistended but grossly unremarkable. REPRODUCTIVE ORGANS: No pathologic process. ---COMBINED--- MUSCULOSKELETAL: Subacute right posterior 11th rib fracture. No acute fracture identified. ADDITIONAL FINDINGS: None. IMPRESSION: No evidence of significant acute trauma to the chest, abdomen, or pelvis. Heterogeneous appearance of the liver with steatosis likely reflects steatohepatitis and cirrhosis. Polypoid lesion in the rectum. Recommend follow-up colonoscopy.
--- NOTE | 2025-07-15 23:07 | ER ---
Nurse's Notes [facility] Name: Joe Campo Age: 55 yrs Sex: Male : 1970 Arrival Date: 07/15/2025 Time: 20:31 Bed 20 Private MD: Diagnosis: Alcohol dependence with withdrawal;Hepatic failure, unspecified without coma Presentation: 07/15 20:38 Chief complaint: EMS states: pain all over, feels anxious and has not eaten any food in kj2 > 1 week. Coronavirus screen: Client denies travel out of the [place] in the last 14 days. Ebola Screen: No symptoms or risks identified at this time. Risk Assessment: Do you want to hurt yourself or someone else? Patient reports no desire to harm self or others. 20:38 Method Of Arrival: EMS: [facility] kj2 20:38 Acuity: EMILY 3 kj2 20:49 Initial Sepsis Screen: Does the patient meet any 2 criteria? No. Patient's initial kj2 sepsis screen is negative. Does the patient have a suspected source of infection? No. Patient's initial sepsis screen is negative. Onset of symptoms was July 15, 2025. Triage Assessment: 20:44 General: Appears in no apparent distress. Behavior is cooperative, anxious. Pain: kj2 Complains of pain in all over Pain currently is 7 out of 10 on a pain scale. Neuro: Level of Consciousness is awake, alert, Oriented to person, place, situation. Cardiovascular: Patient's skin is warm and dry. Respiratory: Airway is patent Respiratory effort is unlabored. GI: No signs and/or symptoms were reported involving the gastrointestinal system. : No signs and/or symptoms were reported regarding the genitourinary system. Historical: - Allergies: 20:39 Paxil; kj2 20:39 Zoloft; kj2 - PMHx: 20:39 Anxiety; kj2 - Immunization history:: Adult Immunizations unknown. - Infectious Disease History:: Denies. - Social history:: Smoking status: unknown. Screenin:47 [facility] ED Fall Risk Assessment (Adult) History of falling in the last 3 months, kj2 including since admission No falls in past 3 months (0 pts) Confusion or Disorientation No (0 pts) Intoxicated or Sedated No (0 pts) Impaired Gait No (0 pts) Mobility Assist Device Used No (0 pt) Altered Elimination No (0 pt) Score/Fall Risk Level 0 - 2 = Low Risk Maintained a safe environment, Used ambulatory aids as needed (educated on \T\ assisted with). Abuse screen: Denies threats or abuse. Denies injuries from another. Nutritional screening: No deficits noted. Tuberculosis screening: No symptoms or risk factors identified. 07/16 00:24 [facility] ED Fall Risk Assessment (Adult) History of falling in the last 3 months, tb4 including since admission No falls in past 3 months (0 pts) Confusion or Disorientation No (0 pts) Intoxicated or Sedated No (0 pts) Impaired Gait No (0 pts) Mobility Assist Device Used No (0 pt) Altered Elimination No (0 pt) Score/Fall Risk Level 0 - 2 = Low Risk Maintained a safe environment. Abuse screen: Denies threats or abuse. Denies injuries from another. Nutritional screening: No deficits noted. Tuberculosis screening: No symptoms or risk factors identified. Assessment: 07/15 20:46 General: see triage assessment. Pain:. kj2 21:41 Reassessment: Patient appears in no apparent distress at this time. Patient is alert, kj2 oriented x 3, equal unlabored respirations, skin warm/dry/pink. 22:36 Reassessment: Patient appears in no apparent distress at this time. Patient and/or kj2 family updated on plan of care and expected duration. Pain level reassessed. Patient is alert, oriented x 3, equal unlabored respirations, skin warm/dry/pink. 23:36 Reassessment: Patient appears in no apparent distress at this time. Patient and/or kj2 family updated on plan of care and expected duration. Pain level reassessed. Patient is alert, oriented x 3, equal unlabored respirations, skin warm/dry/pink. 07/16 00:24 General: Appears in no apparent distress. comfortable, Behavior is calm, cooperative. tb4 Pain: Denies pain. Neuro: Level of Consciousness is awake, alert, obeys commands, Oriented to person, place, time, situation, Doughnut Fryer are equal bilaterally Moves all extremities. Full function Gait is steady, Speech is normal, Facial symmetry appears normal. Respiratory: Airway is patent Respiratory effort is even, unlabored, Respiratory pattern is regular, symmetrical. GI: Abdomen is round non-distended, Bowel sounds present X 4 quads. Abd is soft and non tender. : Reports dark colored urine. EENT: No deficits noted. No signs and/or symptoms were reported regarding the EENT system. Derm: No deficits noted. No signs and/or symptoms reported regarding the dermatologic system. Skin is intact, is healthy with good turgor, Skin is dry, Skin is dusky, Skin temperature is warm. Musculoskeletal: No deficits noted. No signs and/or symptoms reported regarding the musculoskeletal system. Circulation, motion, and sensation intact. Range of motion: intact in all extremities. 00:28 Reassessment: nurse to nurse report given to BELLO Pelayo. kj2 Vital Signs: 07/15 20:43 BP 134 / 72; Pulse 91; Resp 18; Temp 98.4; Pulse Ox 98% ; Weight 90.72 kg; Height 5 ft. kj2 9 in. ; 21:42 BP 136 / 73; Pulse 90; Resp 18; Pulse Ox 100% on R/A; kj2 22:37 BP 113 / 89; Pulse 95; Resp 18; Temp 98; Pulse Ox 100% ; kj2 23:36 BP 137 / 73; Pulse 98; Resp 18; Pulse Ox 98% on R/A; kj2 07/16 00:30 BP 135 / 68; Pulse 99; Resp 16; Pulse Ox 97% on R/A; ss12 01:00 BP 139 / 72; Pulse 96; Resp 16; Pulse Ox 100% on R/A; ss12 07/15 20:43 Body Mass Index 29.53 (90.72 kg, 175.26 cm) kj2 ED Course: 07/15 20:32 Patient arrived in ED. vk 20:37 Karen Zuñiga RN is Primary Nurse. kj2 20:39 Triage completed. kj2 20:43 Reilly Ram PA-C is PHCP. cp 20:43 Logan Wagner DO is Attending Physician. cp 20:48 Arm band placed on Patient placed in the treatment room, on a stretcher. kj2 20:48 Patient has correct armband on for positive identification. Bed in low position. Call kj2 light in reach. Provided Education on: call light. 20:48 No provider procedures requiring assistance completed. kj2 21:00 Maintain EMS IV. Dressing intact. Good blood return noted. Site clean \T\ dry. Gauge \T\ kj 2 site: 20g right AC. Flushed with 10 mL NS. 21:34 Type And Screen Sent. kj2 21:34 AMMONIA Sent. kj2 21:56 XRAY Chest (1 view) In Process Unspecified. EDMS 22:31 Head C Spine Mpr Wo Con In Process Unspecified. EDMS 22:31 Chest Abdomen Pelvis W Cont In Process Unspecified. EDMS 23:29 initiated transfer with [facility] spoke with Katheryn. vk 23:56 patient was accepted to [facility] to Dr. Olson \T\2347 to [address] [place] [address] bed 7 accepting vk admin Katheryn G \T\ 2354. 07/16 00:30 Report given to BELLO Queveod. kj2 Administered Medications: 07/15 21:33 Drug: Diazepam IVP 5 mg IVP once Route: IVP; Site: right antecubital; kj2 23:43 Follow up: Response: No adverse reaction kj2 23:36 Drug: Diazepam IVP 5 mg IVP once Route: IVP; Site: right antecubital; kj2 23:51 Follow up: Response: No adverse reaction kj2 23:36 Drug: Pantoprazole IVP 40 mg IVP once Route: IVP; Site: right antecubital; kj2 23:51 Follow up: Response: No adverse reaction kj2 Medication: 21:11 VIS not applicable for this client. kj2 Outcome: 23:07 ER care complete, transfer ordered by MD. raines 07/16 01:32 Patient left the ED. tb4 Signatures: Dispatcher [employer] EDPR Reilly Ram PA-C PA-C cp Kruse, Vivian vk Jordan, Krystal, RN RN kj2 Emy Domínguez, BELLO RN tb4 Halima Varghese RN RN ss12
--- NOTE | 2025-07-15 23:07 | EDPHYS ---
Physician Documentation [facility] Name: Joe Campo Age: 55 yrs Sex: Male : 1970 Arrival Date: 07/15/2025 Time: 20:31 Bed 20 Private MD: ED Physician Logan Wagner HPI: 07/15 21:05 This 55 yrs old Male presents to ER via EMS with complaints of Pain All Over, Anxiety. cp 21:05 The patient presents to the emergency department with anxiety, a history of substance cp abuse, Type: beer. 21:05 Onset: The symptoms/episode began/occurred today. Past psychiatric history: Prior cp diagnosis: anxiety, daily use of alcohol. reports last drink yexterday. Associated signs and symptoms: Pertinent negatives: abdominal pain, chest pain, delusions, fever, hallucinations, suicide ideation. Severity of symptoms: in the emergency department the symptoms are unchanged despite home interventions. Historical: - Allergies: 20:39 Paxil; kj2 20:39 Zoloft; kj2 - PMHx: 20:39 Anxiety; kj2 - Immunization history:: Adult Immunizations unknown. - Infectious Disease History:: Denies. - Social history:: Smoking status: unknown. ROS: 21:10 Constitutional: Positive for poor PO intake, Negative for fever, cp 21:10 Eyes: Negative for injury, pain, redness, and discharge, cp 21:10 Cardiovascular: Negative for chest pain, 21:10 Respiratory: Negative for cough, shortness of breath, wheezing, 21:10 Abdomen/GI: Negative for abdominal pain, vomiting, diarrhea, constipation, black/tarry stool, rectal bleeding, 21:10 : Negative for urinary symptoms, 21:10 Neuro: Positive for tremor, Negative for altered mental status, 21:10 All other systems are negative, Exam: 21:10 ECG was reviewed by the Attending Physician. cp 21:10 Head/Face: Normocephalic, atraumatic. cp 21:10 Constitutional: The patient appears in no acute distress, alert, awake, non-diaphoretic, non-toxic, well developed, well nourished, unkempt, 21:10 Eyes: Periorbital structures: appear normal, Conjunctiva: normal, no exudate, no injection, Sclera: icterus, is present, Lids and lashes: appear normal, bilaterally, 21:10 ENT: External ear(s): are unremarkable, Nose: is normal, Mouth: Lips: moist, Oral mucosa: moist, Posterior pharynx: Airway: no evidence of obstruction, patent, 21:10 Neck: ROM/movement: is normal, is supple, without pain, no range of motions limitations, 21:10 Chest/axilla: Inspection: normal, Palpation: crepitus, is not appreciated, tenderness, is not appreciated, 21:10 Cardiovascular: Rate: normal, Rhythm: regular, Edema: pedal edema, that is moderate, ankle edema, that is moderate, JVD: is not appreciated, 21:10 Respiratory: the patient does not display signs of respiratory distress, Respirations: normal, no use of accessory muscles, no retractions, labored breathing, is not present, Breath sounds: are clear throughout, no decreased breath sounds, no stridor, no wheezing, 21:10 Abdomen/GI: Inspection: abdomen appears normal, Bowel sounds: active, all quadrants, Palpation: soft, in all quadrants, mild abdominal tenderness, in all quadrants, 21:10 Back: CVA tenderness, is absent, 21:10 Skin: Appearance: Color: jaundiced, 21:10 Neuro: Orientation: to person, place \T\ time. Mentation: is normal, Motor: moves all fours, no focal deficits, Sensation: no obvious gross deficits, 21:10 Psych: Patient has no thoughts/intents to harm self or others. Judgement / Insight is normal. Delusions/hallucinations are not present. Vital Signs: 20:43 BP 134 / 72; Pulse 91; Resp 18; Temp 98.4; Pulse Ox 98% ; Weight 90.72 kg; Height 5 ft. kj2 9 in. ; 21:42 BP 136 / 73; Pulse 90; Resp 18; Pulse Ox 100% on R/A; kj2 22:37 BP 113 / 89; Pulse 95; Resp 18; Temp 98; Pulse Ox 100% ; kj2 23:36 BP 137 / 73; Pulse 98; Resp 18; Pulse Ox 98% on R/A; kj2 1004 00:30 BP 135 / 68; Pulse 99; Resp 16; Pulse Ox 97% on R/A; ss12 01:00 BP 139 / 72; Pulse 96; Resp 16; Pulse Ox 100% on R/A; ss12 07/15 20:43 Body Mass Index 29.53 (90.72 kg, 175.26 cm) kj2 MDM: 07/15 20:43 Medical Screening Exam initiated 22:00 Differential diagnosis: drug withdrawal. acute psychotic break, depression, psychosis cp secondary to non-compliance, cholecystitis, hepatic failure. 23:10 Data reviewed: vital signs, nurses notes, lab test result(s), EKG, radiologic studies, cp CT scan, plain films, and as a result, I will transfer patient. 23:10 I considered the following discharge prescriptions or medication management in the emergency department Medications were administered in the Emergency Department. See MAR. Counseling: I had a detailed discussion with the patient and/or guardian regarding the historical points, exam findings, and any diagnostic results supporting the discharge/admit diagnosis, lab results, radiology results, the need to transfer to another facility, for higher level of care, [facility] does not immediately have the required specialist. Response to treatment: the patient's symptoms have mildly improved after treatment. 07/16 00:10 ED course: consult with patient observation assistant at [facility], DR Olson, will accept patient after discussion. 07/15 21:10 Order name: Basic Metabolic Panel; Complete Time: 22:40 07/15 22:41 Interpretation: Normal except: NA 132; BUN 5; CRE 0.60; CA 8.2. 07/15 21:10 Order name: CBC with Diff; Complete Time: 22:40 07/15 22:41 Interpretation: Normal except: RBC 3.39; HGB 12.2; HCT 35.1; MCV 103.5; MCH 36.1; PLT cp 125; RDW 16.9; ERICK% 79.3; LYM% 9.5; NEUT A 8.4. 07/15 21:10 Order name: LFT's; Complete Time: 22:40 07/15 22:42 Interpretation: Normal except: AST 183; ALT 73; ALK 169; BILIT 11.0; BILID 5.8; IBILI, cp CALC 5.2; ALB 2.1; GLOB 4.8; A/G 0.4. 07/15 21:10 Order name: Magnesium; Complete Time: 22:40 07/15 21:10 Order name: NT PRO-BNP; Complete Time: 22:40 cp 07/15 21:10 Order name: PT-INR; Complete Time: 22:40 cp 07/15 22:42 Interpretation: Abnormal: PT 16.8. cp 07/15 21:10 Order name: Troponin HS; Complete Time: 22:40 cp 07/15 21:10 Order name: Ptt, Activated; Complete Time: 22:40 cp 07/15 21:10 Order name: Lipase; Complete Time: 22:40 cp 07/15 21:10 Order name: AMMONIA; Complete Time: 22:40 cp 07/15 21:10 Order name: Type And Screen; Complete Time: 23:42 cp 07/15 21:10 Order name: UA Rfx Espinoza Cult if indicated; Complete Time: 01:23 cp 07/16 01:24 Interpretation: Normal except: Urine SG > 1.030; UBILI 2+; UKET 1+; UUROB 4+ (Over). cp 07/15 21:10 Order name: ETOH Level; Complete Time: 22:40 cp 07/15 22:42 Interpretation: ETOH 13; Reviewed. cp 07/15 21:10 Order name: UDS; Complete Time: 01:23 cp 07/16 01:24 Interpretation: Normal except: BZO POSITIVE; THC POSITIVE. cp 07/15 23:39 Order name: ABO/RH no charge; Complete Time: 23:42 EDMS 07/15 21:10 Order name: XRAY Chest (1 view); Complete Time: 22:40 cp 07/15 22:02 Order name: Head C Spine Mpr Wo Con; Complete Time: 22:40 EDMS 07/15 22:03 Order name: Chest Abdomen Pelvis W Cont; Complete Time: 22:52 EDMS 07/15 22:53 Interpretation: Report reviewed. cp 07/15 20:45 Order name: EKG; Complete Time: 20:45 cp 07/15 20:45 Order name: EKG - Nurse/Tech; Complete Time: 21:10 cp 07/15 21:10 Order name: Cardiac monitoring; Complete Time: 21:41 cp 07/15 21:10 Order name: IV Saline Lock; Complete Time: 21:41 cp 07/15 21:10 Order name: Labs collected and sent; Complete Time: 21:43 cp 07/15 21:10 Order name: O2 Per Protocol; Complete Time: 21:41 cp 07/15 21:10 Order name: O2 Sat Monitoring; Complete Time: 21:41 cp 07/15 22:31 Order name: Misc. Order: type and screen redraw just the tube ; Complete Time: 23:36 vk EC/03 21:10 Rate is 89 beats/min. Rhythm is regular. ID interval is normal. QRS interval is cp prolonged at 104 msec. QT interval is normal. Interpreted by me. Reviewed by me. Administered Medications: 21:33 Drug: Diazepam IVP 5 mg IVP once Route: IVP; Site: right antecubital; kj2 23:43 Follow up: Response: No adverse reaction kj2 23:36 Drug: Diazepam IVP 5 mg IVP once Route: IVP; Site: right antecubital; kj2 23:51 Follow up: Response: No adverse reaction kj2 23:36 Drug: Pantoprazole IVP 40 mg IVP once Route: IVP; Site: right antecubital; kj2 23:51 Follow up: Response: No adverse reaction kj2 Disposition: 07/16 01:13 Co-signature as Attending Physician, Logan Wagner DO PA/HIDE GRADER's history reviewed, tt7 patient interviewed, and examined. I agree with assessment and care plan and confirm the diagnosis (es) above. Disposition Summary: 07/15/25 23:07 Transfer Ordered Notes: Transfer Location: [facility] cp Reason: Higher level of care cp Condition: Stable cp Problem: new cp Symptoms: have improved cp Accepting Physician: DR Olson(07/16/25 01:32) tb4 Diagnosis - Alcohol dependence with withdrawal cp - Hepatic failure, unspecified without coma cp Forms: - Medication Reconciliation Form cp - SBAR form cp Signatures: Dispatcher [employer] EDMS Reilly Ram PA-C PAJose GC Thao Murdock Krystal, RN RN kj2 Emy Domínguez RN RN tb4 Logan Wagner DO DO tt7 Corrections: (The following items were deleted from the chart) 07/15 22:02 21:39 Head C Spine CAP W Con+CT.RAD.BRZ ordered. EDMS EDMS 23:48 23:07 doctor olu raines 07/16 01:32 07/15 23:48 DR Wesley cp tb4
[2025-07-15] MEDS ORDERED: PANTOPRAZOLE 40 MG INJ ONE (23:30)
[2025-07-16 01:04] LABS: Urine Microscopic Reflex YN NO UMIC
[2025-07-16 01:08] LABS: METHAMPHETAM NEGATIVE (NEGATIVE); THC Cannibis POSITIVE (NEGATIVE)
[2025-07-16 01:41] VITALS: TEMP 98
[2025-07-16 01:46] VITALS: BP 139/72; O2SAT 100
== END 2025-07-16 01:32 | disposition short-term general hospital (02) ==
LOC: ER 20:31
DX: F10.239 Alcohol dependence with withdrawal, unspecified (principal); K72.90 Hepatic failure, unspecified without coma; F41.9 Anxiety disorder, unspecified
CPT/HCPCS: 93005; 85025; 80048; 36415; 82140; 86900; 83735; 86850; 85610; 86901; 80076; 85730; 81003; 84484; 83690; 83880; 80307; 70450; 72125; 71260; 74177; 71045; 96375; 96374; 99284; 82077; Q9967; J2470; J3360 ×2